=== PATIENT | female | born 1940 | race Caucasian/White ===

== ENCOUNTER 2020-06-17 12:57 | Inpatient (IN) ==
[2020-06-17 13:12] VITALS: BMI 22.1
[2020-06-17 13:42] LABS: ABG BASE EXCESS 2.1 mmol/L (-2.0-2.0); ABG HCO3 23.3 mmol/L (22-26)
[2020-06-17 13:43] LABS: ABG ALLEN TEST POS
--- NOTE | 2020-06-17 13:48 | DR.SOBA ---
HPI Time Seen Time Seen by Provider: 06/17/20 13:33 Primary Care Physician Primary Care Physician: MAURICE WEBB HPI Comment HPI Comment: A 80 y/o female presenting with generalized weakness, SOB, cough and nausea x couple of weeks. Her O2 sat was 81% on R/A at home with EMS crew today. She was diagnosed with COVID-19 about 10 days ago and has failed supportive outpt. therapies. She also has decreased appetite but no fever. Complaints Chief Complaint:: PT. IS COVID POSITIVE WITH C/O INCREASED WEAKNESS, SHORTNESS OF BREATH AND NAUSEA. DECREASED APPETITE DUE TO NAUSEA. PT. HAS FAILED OUT PA TIENT TREATMENT. O2 SAT WAS 81% ON ROOM AIR UPON EMS ARRIVAL. PT. WAS PLACED ON N/C @ 4LPM WHICH INCREASED O2 SAT TO 94%. COVID-19 Coronavirus risk:travel/contact w/high risk person: Yes Has patient experienced Coronavirus symptoms: Yes Coronavirus symptoms experienced: Coughing and Shortness of Breath Reviewed Nurses Notes Reviewed: Yes Source History Provided: Patient and EMS Mode of Arrival Mode of Arrival: EMS Timing Onset of Chief Complaint: 06/10/20 Duration Duration: Weeks Context PE Risk Factors:: None History of:: None Currently on:: Neither Prehospital Care:: O2 Modifying Factors Worsens:: Exertion Improves:: Rest Associated Signs and Symptoms Associated Signs and Symptoms: Cough If Cough Cough: Productive and White PMH PMH Past Medical History: Yes Past Medical History: Hypertension Past Surgical History: Yes Surgical History: Unknown Family History History of Family Medical Conditions: Yes Family Medical History: Coronary Artery Disease and Hypertension Social History Does patient currently use any type of tobacco product: No Have you used tobacco products in the last 12 months: No Type of Tobacco Use: None Does any household member use tobacco: No Alcohol Use: None Do you use any recreational Drugs:: No Lives With: Alone Lives Where: Home Travel Risk Coronavirus risk:travel/contact w/high risk person: Yes Has patient experienced Coronavirus symptoms: Yes Coronavirus symptoms experienced: Shortness of Breath Infectious screening In the last 2 months have you had wt loss of >10#?: NO Have you had fever, night sweats or hemotysis?: No Have you traveled outside the country in the last 6 months?: No Isolation: Droplet ROS Review of Systems Constitutional: Weakness Eyes: No Symptoms Reported ENTM: No Symptoms Reported Respiratoy: Productive Cough and Short of Breath Cardiovascular: No Symptoms Reported Gastrointestinal/Abdominal: Nausea Genitourinary: No Symptoms Reported Neurological: No Symptoms Reported Musculoskeletal: No Symptoms Reported Integumentary: No Symptoms Reported Hematologic/Lymphatic: No Symptoms Reported Endocrine: No Symptoms Reported Psychiatric: No Symptoms Reported PE Vital Signs Vitals: Temperature 99.5 F Pulse Rate 88 Respiratory Rate 28 Blood Pressure [Left Arm] 164/70 Blood Pressure 149/79 O2 Sat by Pulse Oximetry 92 General Limitations: No Limitations General Appearance: Alert and In No Apparent Distress Head Head Exam: Normal Inspection, Atraumatic and Normocephalic Eyes Eye exam: Normal Appearance and EOMI ENT ENT Exam: Normal Exam, Normal Oropharynx, Normal External Ear Exam and Mucous Membranes Moist Neck Neck Exam: Normal Inspection, Full ROM and Trachea Midline Chest Chest Inspection: Normal Inspection and Symmetric Chest Wall Rise Respiratory Respiratory Exam: Normal Lung Sounds Bilat Cardiovascular Cardiovascular Exam: Regular Rate, Normal Rhythm, Normal Heart Sounds, +S1 and +S2 Abdominal Exam Abdominal Exam: Normal Inspection, Normal Bowel Sounds and Soft Extremities Extremities Exam: Other (s/p t. AKA) Back Back Exam: Normal Inspection and Full ROM Neurologic Neurological Exam: Alert and Oriented X3 Psychiatric Psychiatric Exam: Normal Affect and Normal Mood Skin Skin Exam: Dry and Normal Color COURSE Treatment Treatment: I spoke with Dr. Mckeon about pt's. presentation and findings. He agrees to the pt. being admitted to his service. Reevaluation 1st: Unchanged Education/Counseling Education/Counseling: Patient, Education and Counseling Educated On: Treatment, Diagnosis, Prognosis and Needs for Follow Up ROR Labs Reviewed Result Diagrams: 06/17/20 14:00 06/17/20 14:00 Laboratory: WBC 22.9 X10^3/uL (3.6-10.0) H 06/17/20 14:00 RBC 4.57 X10^6/uL (3.5-5.4) 06/17/20 14:00 Hgb 14.0 g/dL (12.0-16.0) 06/17/20 14:00 Hct 41.9 % (36.0-47.0) 06/17/20 14:00 MCV 91.7 fL (80.0-100.0) 06/17/20 14:00 MCH 30.7 pg (27.0-34.0) 06/17/20 14:00 MCHC 33.5 g/dL (33.0-35.0) 06/17/20 14:00 RDW 12.9 % (11.6-16.5) 06/17/20 14:00 Plt Count 188 X10^3/uL (150.0-450.0) 06/17/20 14:00 Plt Count Comment Adequate (ADEQUATE) 06/17/20 14:00 MPV 9.4 fL (7.4-11.0) 06/17/20 14:00 Neut % (Auto) 30.5 % (42.0-75.0) L 06/17/20 14:00 Lymph % (Auto) 67.2 % (21.0-51.0) H 06/17/20 14:00 [place] % (Auto) 2.1 % (0.0-13.0) 06/17/20 14:00 Eos % (Auto) 0.0 % (0.9-2.9) L 06/17/20 14:00 Baso % (Auto) 0.2 % (0.2-1.0) 06/17/20 14:00 Neut # (Auto) 7.0 x10^3/uL (2.2-4.8) H 06/17/20 14:00 Lymph # (Auto) 15.3 X10^3/uL (1.3-2.9) H 06/17/20 14:00 [place] # (Auto) 0.5 x10^3/uL (0.3-0.8) 06/17/20 14:00 Eos # (Auto) 0.0 x10^3/uL (0.0-0.2) 06/17/20 14:00 Baso # (Auto) 0.0 X10^3/uL (0.0-0.1) 06/17/20 14:00 Absolute Nucleated RBC 0.1 /100WBC 06/17/20 14:00 Total Counted 100 06/17/20 14:00 Neutrophils % (Manual) 29 % (39-76) L 06/17/20 14:00 Band Neutrophils % 2 % (0-10) 06/17/20 14:00 Lymphocytes % (Manual) 67 % (13-43) H 06/17/20 14:00 Monocytes % (Manual) 2 % (4-9) L 06/17/20 14:00 Plt Morphology Comment Normal (NORMAL) 06/17/20 14:00 RBC Morphology Normal (NORMAL) 06/17/20 14:00 Sample Site Rr 06/17/20 13:37 ABG pH 7.560 (7.35-7.45) H* 06/17/20 13:37 ABG pCO2 26.0 mmHg (35.0-45.0) L 06/17/20 13:37 ABG pO2 56.0 mmHg (80.0-100.0) L 06/17/20 13:37 ABG HCO3 23.3 mmol/L (22-26) 06/17/20 13:37 ABG O2 Saturation 93.0 % (90-100) 06/17/20 13:37 ABG Base Excess 2.1 mmol/L (-2.0-2.0) H 06/17/20 13:37 Ki Test Pos 06/17/20 13:37 A-a Gradient 61.0 mmHg 06/17/20 13:37 FiO2 21.0 06/17/20 13:37 Blood Gas Comments Emily well. gmb 06/17/20 13:37 Sodium 137 mmol/L (136-145) 06/17/20 14:00 Corrected Sodium TNP 06/17/20 14:00 Potassium 3.1 mmol/L (3.5-5.1) L 06/17/20 14:00 Chloride 98 mmol/L (98-107) 06/17/20 14:00 Carbon Dioxide 26.6 mmol/L (21-32) 06/17/20 14:00 BUN 17 mg/dL (7-18) 06/17/20 14:00 Creatinine 1.18 mg/dL (0.55-1.02) H 06/17/20 14:00 Est GFR (MDRD) Af Amer 57 (>60) L 06/17/20 14:00 Est GFR (MDRD) Non-Af 47 (>60) L 06/17/20 14:00 Glucose 91 mg/dL (65-99) 06/17/20 14:00 Calcium 8.8 mg/dL (8.5-10.1) 06/17/20 14:00 Corrected Calcium 9.4 mg/dL (8.5-10.1) 06/17/20 14:00 Ferritin 623 ng/mL (8-252) H 06/17/20 14:00 Total Bilirubin 0.70 mg/dL (0.2-1.0) 06/17/20 14:00 AST 36 Units/L (15-37) 06/17/20 14:00 ALT 31 Units/L (12-78) 06/17/20 14:00 Alkaline Phosphatase 84 Units/L (46-116) 06/17/20 14:00 C-Reactive Protein 83.30 mg/L (0-3.0) H 06/17/20 14:00 Total Protein 6.7 g/dL (6.4-8.2) 06/17/20 14:00 Albumin 3.2 g/dL (3.4-5.0) L 06/17/20 14:00 Globulin 3.5 g/dL (2.5-4.5) 06/17/20 14:00 Albumin/Globulin Ratio 0.9 Ratio (1.1-2.1) L 06/17/20 14:00 SARS CoV-2 RNA Rapid ANSON Cancelled 06/17/20 14:10 EKG Rate: 108 Trevor: Normal Rhythm: ST and PVCs Block: None Hypertrophy: None ST: Old and Infarct Opioid Opioid Risk Tool Age (Nas box if 16-45): No History of Preadolescent Sexual Abuse: No Total: 0 Total Score Risk Category: Low Risk Copyright: [facility] predicting aberrant behaviors Diagnosis Discharge Problem: Lobar pneumonia, Hypokalemia, Weakness, COVID-19 Leukocytosis Qualifiers: Leukocytosis type: lymphocytosis Qualified Code(s): D72.820 - Lymphocytosis (symptomatic) ADDITIONAL NOTES Additional Notes Additional Notes: Name: NUBIA HERNANDEZ : 1940 Sex: F Location: ER Order Number(s): [id number] Procedure(s):CHEST, 1 VIEW Ordering Physician: YOSEPH ANTONIO Primary Care: Galindo Mckeon M.D. Service Date: 06/17/20 Service Time: 1334 PROCEDURE: Chest x-ray one-view. HISTORY: Short of breath and COVID-19. TECHNIQUE: AP portable technique done at 2:12 p.m.. COMPARISON: 06/14/2020. TECHNICAL QUALITY: Satisfactory . FINDINGS: Heart size upper limits of normal and unchanged. Tortuous aortic arch. Mediastinum and hilar regions show no masses. Normal central vascularity. Increased density left base and right upper lobe near the minor fissure consistent with pneumonia that is appeared since previous chest x-ray. No pleural fluid or pneumothorax. IMPRESSION: Increasing pneumonia bilaterally. Electronically signed by: Ney Hidalgo (Jun 17, 2020 14:35:24)
[2020-06-17] MEDS ORDERED: NS 1000 ML 1,000 ML IV ONE (13:53)
[2020-06-17] MEDS ORDERED: ZOFRAN INJ 4 MG VIAL ONE (14:05)
[2020-06-17] MEDS ORDERED: NS 1000 ML 1,000 ML ONE (14:05)
[2020-06-17] MEDS ORDERED: ZOFRAN INJ 4 MG VIAL IVP ONE (14:12)
[2020-06-17 14:13] LABS: BASOPHILS % (AUTO) 0.2 % (0.2-1.0); HEMATOCRIT 41.9 % (36.0-47.0); LYMPHOCYTES # (AUTO) 15.3 X10^3/uL (1.3-2.9); LYMPHOCYTES % (AUTO) 67.2 % (21.0-51.0); MEAN CORPUSCULAR HEMOGLOBIN 30.7 pg (27.0-34.0); MEAN CORPUSCULAR HGB CONC 33.5 g/dL (33.0-35.0); MEAN CORPUSCULAR VOLUME 91.7 fL (80.0-100.0); MEAN PLATELET VOLUME 9.4 fL (7.4-11.0); MONOCYTES # (AUTO) 0.5 x10^3/uL (0.3-0.8); MONOCYTES % (AUTO) 2.1 % (0.0-13.0); NEUTROPHILS % (AUTO) 30.5 % (42.0-75.0); PLATELET COUNT 188 X10^3/uL (150.0-450.0); RED BLOOD COUNT 4.57 X10^6/uL (3.5-5.4); RED CELL DISTRIBUTION WIDTH 12.9 % (11.6-16.5); WHITE BLOOD COUNT 22.9 X10^3/uL (3.6-10.0)
[2020-06-17 14:25] LABS: ALANINE AMINOTRANSFERASE 31 Units/L (12-78); ALBUMIN 3.2 g/dL (3.4-5.0); ALKALINE PHOSPHATASE 84 Units/L (46-116); ASPARTATE AMINO TRANSFERASE 36 Units/L (15-37); BLOOD UREA NITROGEN 17 mg/dL (7-18); CALCIUM 8.8 mg/dL (8.5-10.1); CARBON DIOXIDE 26.6 mmol/L (21-32); CHLORIDE 98 mmol/L (98-107); COR CA(FOR HYPOALB) 9.4 mg/dL (8.5-10.1); CREATININE 1.18 mg/dL (0.55-1.02); SODIUM 137 mmol/L (136-145); TOTAL PROTEIN 6.7 g/dL (6.4-8.2); eGFR NON BLACK RACES 47 (>60)
--- NOTE | 2020-06-17 14:37 | RAD ---
PROCEDURE: Chest x-ray one-view.HISTORY: Short of breath and COVID-19.TECHNIQUE: AP portable technique done at 2:12 p.m..COMPARISON: 06/14/2020.TECHNICAL QUALITY: Satisfactory .FINDINGS:Heart size upper limits of normal and unchanged.Tortuous aortic arch. Mediastinum and hilar regions show no masses.Normal central vascularity.Increased density left base and right upper lobe near the minor fissure consistent with pneumonia that is appeared since previous chest x-ray. No pleural fluid or pneumothorax.IMPRESSION:Increasing pneumonia bilaterally.Electronically signed by: Ney Hidalgo (Jun 17, 2020 14:35:24)
[2020-06-17 14:38] LABS: BAND NEUTROPHILS % 2 % (0-10)
[2020-06-17 14:39] LABS: PLATELET MORPHOLOGY COMMENT NORMAL (NORMAL)
[2020-06-17] MEDS ORDERED: TORADOL 60 MG VIAL IM ONE (16:00)
[2020-06-17] MEDS ORDERED: CATAPRES TAB 0.2 MG PO ONE (16:00)
[2020-06-17] MEDS ORDERED: ZITHROMAX INJ 500 MG VIAL 500 MG in NS 250 ML IV 250 ML IV SCH (16:17)
[2020-06-17] MEDS ORDERED: ROCEPHIN 1 GRAM IV PREMIX 1 G/50 ML IV.SOLN. IV ONE ×2 (16:17→16:29)
[2020-06-17] MEDS ORDERED: K-DUR TAB 20 MEQ PO ONE ×2 (16:20→17:07)
[2020-06-17] MEDS: ROCEPHIN 1 GRAM IV PREMIX 1 G/50 ML IV.SOLN. IV SCH (17:13)
[2020-06-17] MEDS ORDERED: ROBITUSSIN DM ONE ×2 (17:30→21:54)
[2020-06-17] MEDS: ROBITUSSIN DM PO SCH ×2 (17:45→22:00)
[2020-06-17] MEDS ORDERED: ZITHROMAX INJ 500 MG VIAL IV ONE (17:46)
[2020-06-17] MEDS ORDERED: NS 250 ML IV 250 ML IV ONE (17:47)
[2020-06-17] MEDS ORDERED: NS 1/2 1000 ML IV 1,000 ML IV ONE (17:47)
[2020-06-17] MEDS: NS 1/2 1000 ML IV 1,000 ML IV SCH (17:54)
[2020-06-17] MEDS: XOPENEX 1.25 MG/3 ML NEBULE NEB SCH (22:40)
[2020-06-17] MEDS: PULMICORT NEB TX 0.5 MG NEB SCH (22:40)
[2020-06-18 04:35] LABS: BILIRUBIN,URINE NEGATIVE (NEGATIVE); BLOOD/HEMOGLOBIN,URINE 3+ (NEGATIVE); GLUCOSE, URINE NEGATIVE (NEGATIVE); KETONES,URINE 3+ (NEGATIVE); LEUKOCYTE ESTERASE ,URINE NEGATIVE (NEGATIVE); NITRITES,URINE NEGATIVE (NEGATIVE); PROTEIN,URINE 2+ (NEGATIVE); UROBILINOGEN,URINE NORMAL (NORMAL)
[2020-06-18 04:45] LABS: AMORPHOUS SEDIMENT,UR 2+ /HPF (NEGATIVE); APPEARANCE,URINE SLIGHTLY HAZY (CLEAR); BACTERIA,URINE 1+ /HPF (NEGATIVE); COLOR,URINE YELLOW (YELLOW); RBC,URINE 20-30 /HPF (0-3); SQUAMOUS EPITHELIAL CELL,UR FEW /HPF (NEGATIVE)
[2020-06-18 05:54] LABS: BASOPHILS % (AUTO) 0.1 % (0.2-1.0); EOSINOPHILS % (AUTO) 0.1 % (0.9-2.9); HEMATOCRIT 35.5 % (36.0-47.0); HEMOGLOBIN 11.7 g/dL (12.0-16.0); LYMPHOCYTES # (AUTO) 12.1 X10^3/uL (1.3-2.9); LYMPHOCYTES % (AUTO) 66.1 % (21.0-51.0); MEAN CORPUSCULAR HEMOGLOBIN 30.3 pg (27.0-34.0); MEAN CORPUSCULAR HGB CONC 32.9 g/dL (33.0-35.0); MEAN PLATELET VOLUME 9.6 fL (7.4-11.0); MONOCYTES # (AUTO) 0.4 x10^3/uL (0.3-0.8); MONOCYTES % (AUTO) 2.4 % (0.0-13.0); NEUTROPHILS # (AUTO) 5.7 x10^3/uL (2.2-4.8); NEUTROPHILS % (AUTO) 31.3 % (42.0-75.0); PLATELET COUNT 142 X10^3/uL (150.0-450.0); RED BLOOD COUNT 3.86 X10^6/uL (3.5-5.4); RED CELL DISTRIBUTION WIDTH 12.8 % (11.6-16.5); WHITE BLOOD COUNT 18.3 X10^3/uL (3.6-10.0)
[2020-06-18 06:03] LABS: ALANINE AMINOTRANSFERASE 27 Units/L (12-78); ALBUMIN 2.6 g/dL (3.4-5.0); ALKALINE PHOSPHATASE 69 Units/L (46-116); ASPARTATE AMINO TRANSFERASE 32 Units/L (15-37); BLOOD UREA NITROGEN 14 mg/dL (7-18); CALCIUM 8.1 mg/dL (8.5-10.1); CARBON DIOXIDE 25.8 mmol/L (21-32); CHLORIDE 103 mmol/L (98-107); COR CA(FOR HYPOALB) 9.2 mg/dL (8.5-10.1); CREATININE 0.95 mg/dL (0.55-1.02); SODIUM 138 mmol/L (136-145); TOTAL PROTEIN 5.5 g/dL (6.4-8.2); eGFR NON BLACK RACES > 60 (>60)
[2020-06-18 06:17] LABS: PLATELET MORPHOLOGY COMMENT NORMAL (NORMAL)
[2020-06-18] MEDS: XOPENEX 1.25 MG/3 ML NEBULE NEB SCH ×3 (06:55→20:45)
[2020-06-18 07:06] LABS: ABG BASE EXCESS -0.5 mmol/L (-2.0-2.0); ABG HCO3 22.9 mmol/L (22-26)
[2020-06-18 07:07] LABS: ABG ALLEN TEST POSS
[2020-06-18] MEDS: NS 1/2 1000 ML IV 1,000 ML IV SCH ×3 (08:20→20:20)
[2020-06-18] MEDS: ROBITUSSIN DM PO SCH ×4 (08:20→20:20)
[2020-06-18] MEDS: VSL#3 PO SCH (08:20)
[2020-06-18] MEDS: ZITHROMAX INJ 500 MG VIAL 250 MG in NS 250 ML IV 250 ML IV SCH (08:21)
[2020-06-18] MEDS ORDERED: SOLU-Medrol 125 MG VIAL IVP ONE (08:36)
[2020-06-18] MEDS ORDERED: MAGIC MOUTHWASH MT PRN (10:03)
[2020-06-18] MEDS: PULMICORT NEB TX 0.5 MG NEB SCH ×2 (10:07→20:45)
--- NOTE | 2020-06-18 10:08 | DR.H&P ---
H&P - History & Physical for Day of: H&P Date: 06/17/20 - Chief Complaint Chief Complaint: SOB, WEAKNESS, N/V, CONSITPATION, COVID 19 + PNEUMONIA - History of Present Illness History of Present Illness: PT IS 80 WF ER ADMISSION WITH COVID 19 PNEUMONIA WITH HYPOXIA. PT HAD BEEN ON PO ZITHROMAX, LEVAQUIN, PREDNISONE AND PLAQUENIL, WELL OUTPT IV NS INFUSION WITH ROCEPHIN 1GM IV. PT WAS SEEN IN ER X2 PRIOR TO THIS ADMISSION FOR CO SOB, WEAKNESS AND N/V. PT HAD PO2 IN 50'S ON ADMISSION WITH CONFIRMED BILATERAL PNEUMONIA. PT HAS PMH OF MVP, COPD, AND CLL. PT ADMITTED FOR ISOLATION FOR COVID PNEUMONIA TREATMENT. - Past Medical History Past Medical History: COPD, Hypertension Additional Medical History: CLL - Past Surgical History Surgical History: Unknown - Family History Family Medical History: Coronary Artery Disease, Hypertension - Social History Does patient currently use any type of tobacco product: No Have you used tobacco products in the last 12 months: No Type of Tobacco Use: None Does any household member use tobacco: No Alcohol Use: None Drug Use: None - Medications Home Medications: No Known Drug Allergies Allergy (Verified 06/15/20 11:35) - Review of Systems Constitutional: Weakness Eyes: No Symptoms Reported ENT: No Symptoms Reported Respiratory: Cough, Shortness of Breath, SOB with Excertion, Pleuritic Pain, Wheezing Cardiovascular: No Symptoms Reported, Chest Pain, Palpitations, Light Headedness Gastrointestinal: Nausea, Vomiting, Constipation Musculoskeletal: Back Pain Skin: No Symptoms Reported Neurological: Weakness - Physical Exam Vital Signs: Temperature 98.9 F Pulse Rate [Right] 86 Pulse Rate 79 Respiratory Rate 32 Blood Pressure [Left Arm] 168/75 Blood Pressure 134/90 O2 Sat by Pulse Oximetry 94 Oriented: Normal Eyes: Normal Ear: Normal Nose: Normal Throat: Normal Respiratory: Diminished Throughout Cardiovascular: Tachycardia, Edema : Normal Auscultation: Bowel Sounds: Normal Palpation: Normal Tenderness: Normal Skin: Decreased Turgur Musculoskeletal: Back:Lumbar Psychiatric: Anxiety Affect: Anxious Speech Pattern: Clear, Appropriate - Assessment/Plan (1) Pneumonia Status: Acute Plan: DUE TO COVID 19 PNEUMONIA WITH HYPOXIA. IV ZITHROMAX, IV REMDESIVIR, SOLU MEDROL. ROCEPHIN, IV HYDRATION, STRICT I&OS. ABG ON ADMISSION THE AM, CXR ON ADMISSION AND AM. SUPPLEMENTAL O2, PT, RT (2) Viral gastroenteritis Status: Acute (3) Respiratory distress Status: Acute (4) Weakness Status: Acute (5) Hypokalemia Status: Acute (6) COVID-19 Status: Acute - Allergies Allergies/Adverse Reactions: Allergies Allergy/AdvReac Type Severity Reaction Status Date / Time No Known Drug Allergies Allergy Verified 06/15/20 11:35
[2020-06-18 10:39] LABS: CKMB % 1.3 % (<4); CREATINE KINASE 75 Units/L (26-192); CREATINE KINASE MB < 1.0 ng/mL (0-4.0); TROPONIN I 0.02 ng/mL (0-1.5)
[2020-06-18] MEDS ORDERED: REMDESIVIR 200 MG in NS 250 ML IV 250 ML IV NR (11:00)
[2020-06-18] MEDS: ROCEPHIN 1 GRAM IV PREMIX 1 G/50 ML IV.SOLN. IV SCH (11:12)
[2020-06-18] MEDS: PROTONIX INJ 40 MG VIAL IVP SCH ×2 (11:12→20:20)
[2020-06-18] MEDS ORDERED: XOPENEX 1.25 MG/3 ML NEBULE NEB ONE (14:32)
[2020-06-18] MEDS ORDERED: MICRO K EXTEN CAP 10 MEQ PO PRN (14:57)
[2020-06-18] MEDS ORDERED: POTASSIUM CHLORIDE LIQ 20 MEQ UDC PO PRN (14:57)
[2020-06-18] MEDS ORDERED: POTASSIUM CHL 40 MEQ/NS 0.45% 500 ML IV PRN (14:57)
[2020-06-18] MEDS ORDERED: KLOR-CON PO PRN (14:57)
[2020-06-18] MEDS ORDERED: POTASSIUM CHL 60 MEQ/NS 0.45% 500 ML IV PRN (14:57)
[2020-06-18] MEDS ORDERED: NS 1/2 1000 ML IV 1,000 ML IV ONE (15:19)
[2020-06-18] MEDS: LOVENOX INJ 40 MG SYR SC SCH (15:26)
[2020-06-18] MEDS: K-DUR TAB 20 MEQ PO PRN ×2 (15:27→20:21)
[2020-06-19] MEDS: XOPENEX 1.25 MG/3 ML NEBULE NEB SCH ×4 (04:59→21:45)
[2020-06-19 06:20] LABS: BASOPHILS % (AUTO) 0 % (0.2-1.0); HEMATOCRIT 38.1 % (36.0-47.0); HEMOGLOBIN 12.5 g/dL (12.0-16.0); LYMPHOCYTES # (AUTO) 17.9 X10^3/uL (1.3-2.9); LYMPHOCYTES % (AUTO) 79.5 % (21.0-51.0); MEAN CORPUSCULAR HEMOGLOBIN 30.7 pg (27.0-34.0); MEAN CORPUSCULAR HGB CONC 32.8 g/dL (33.0-35.0); MEAN CORPUSCULAR VOLUME 93.5 fL (80.0-100.0); MEAN PLATELET VOLUME 9.9 fL (7.4-11.0); MONOCYTES # (AUTO) 0.4 x10^3/uL (0.3-0.8); MONOCYTES % (AUTO) 1.8 % (0.0-13.0); NEUTROPHILS # (AUTO) 4.2 x10^3/uL (2.2-4.8); NEUTROPHILS % (AUTO) 18.7 % (42.0-75.0); PLATELET COUNT 144 X10^3/uL (150.0-450.0); RED BLOOD COUNT 4.07 X10^6/uL (3.5-5.4); RED CELL DISTRIBUTION WIDTH 12.9 % (11.6-16.5); WHITE BLOOD COUNT 22.5 X10^3/uL (3.6-10.0)
[2020-06-19 06:28] LABS: ALANINE AMINOTRANSFERASE 30 Units/L (12-78); ALBUMIN 2.6 g/dL (3.4-5.0); ALKALINE PHOSPHATASE 76 Units/L (46-116); ASPARTATE AMINO TRANSFERASE 33 Units/L (15-37); BLOOD UREA NITROGEN 22 mg/dL (7-18); CALCIUM 8.6 mg/dL (8.5-10.1); CARBON DIOXIDE 22.2 mmol/L (21-32); CHLORIDE 106 mmol/L (98-107); COR CA(FOR HYPOALB) 9.7 mg/dL (8.5-10.1); COR NA(FOR HYPERGLY) 142 mmol/L (136-145); CREATININE 1.08 mg/dL (0.55-1.02); SODIUM 141 mmol/L (136-145); TOTAL PROTEIN 6.1 g/dL (6.4-8.2); eGFR NON BLACK RACES 52 (>60)
--- NOTE | 2020-06-19 07:10 | RAD ---
HISTORYCOVID+; F/USTUDYCHEST, 1 [id number]/23/2020FINDINGSStable cardiomediastinal silhouette. Multifocal bilateral pulmonary opacities are slightly worse than prior. No sizable effusion or visible pneumothorax. No acute osseous finding.IMPRESSIONSlight worsening of bilateral pulmonary opacities.Electronically signed by: Veto Colon (Jun 19, 2020 07:09:24)
[2020-06-19 07:15] LABS: BAND NEUTROPHILS % 2 % (0-10)
[2020-06-19 07:16] LABS: PLATELET MORPHOLOGY COMMENT NORMAL (NORMAL)
[2020-06-19] MEDS: LOVENOX INJ 40 MG SYR SC SCH (09:31)
[2020-06-19] MEDS: ROBITUSSIN DM PO SCH ×4 (09:32→21:00)
[2020-06-19] MEDS: VSL#3 PO SCH (09:33)
[2020-06-19] MEDS: ROCEPHIN 1 GRAM IV PREMIX 1 G/50 ML IV.SOLN. IV SCH (09:33)
[2020-06-19] MEDS: PULMICORT NEB TX 0.5 MG NEB SCH ×2 (09:33→21:45)
[2020-06-19] MEDS ORDERED: NS 250 ML IV 250 ML IV ONE (09:40)
[2020-06-19] MEDS ORDERED: ZITHROMAX INJ 500 MG VIAL IV ONE (09:40)
[2020-06-19] MEDS: PROTONIX INJ 40 MG VIAL IVP SCH ×2 (09:45→21:00)
[2020-06-19] MEDS: ZITHROMAX INJ 500 MG VIAL 250 MG in NS 250 ML IV 250 ML IV SCH (10:36)
--- NOTE | 2020-06-19 11:50 | PCM.PROG ---
Progress Note Progress Note for Day of Date of Exam: 06/19/20 Subjective Subjective: PT IS 80 YEAR OLD FEMALE ADMITTED FOR COVID 19 PNEUMONIA WITH HYPOXIA. THIS MORNING PATIENT REPORTS SOME IMPROVEMENT IN SYMPTOMS AND BREATHING. NO ACUTE EVENTS OVERNIGHT. LABS/IMAGING: WBC 22.5, HGB 12.5, PLT 144, NA 141, K 4, CR 1.08, GLUCOSE 162, CRP 83>116, CXR: Slight worsening of bilate ral pulmonary opacities. HER TREATMENT COURSE INCLUDES: REMDESIVIR, ANTIBIOTICS: ZITHROMAX AND ROCEPHIN, BRONCHODILATORS, RESPIRATORY SUPPORT, I/S, PNEUMONIA PROTOCOL. SHE IS CURRENTLY REQUIRING SUPPLEMENTAL O2 OF 3L NASAL CANNULA, ATTEMPT TO WEAN TOLERATED. WILL ADD ON SOLUMEDROL. CONTINUE PLAN OF CARE AND CLOSELY MONITOR AND FOLLOW UP LABS/IMAGING IN THE MORNING. Past Medical Family Social History Past Med/Fam/Surg Hx: No changes since H&P Allergies: Allergies No Known Drug Allergies Allergy (Verified 06/15/20 11:35) Review of Systems ROS: No change since H&P Vital Signs and I&O's Vital Signs: Temperature 98.3 F Pulse Rate [Right] 85 Pulse Rate 99 Respiratory Rate 26 Blood Pressure [Left Arm] 179/87 Blood Pressure 134/90 O2 Sat by Pulse Oximetry 94 Intake and Output: Intake & Output 06/16/20 06/17/20 06/18/20 06/19/20 23:59 23:59 23:59 23:59 Intake Total 3008 / 3008 443 / 443 Balance 3008 / 3008 443 / 443 Physical Exam Oriented: Normal Eyes: Normal Ear: Normal Nose: Normal Throat: Normal Respiratory: Diminished Cardiovascular: Tachycardia and Edema : Normal Auscultation: Bowel Sounds: Normal Tenderness: Normal Skin: Decreased Turgur Musculoskeletal: Back:Lumbar Psychiatric: Anxiety Affect: Anxious Speech Pattern: Clear and Appropriate Laboratory and Diagnostics Result Diagrams: 06/19/20 05:01 06/19/20 05:01 Labs: 06/17/20 18:25 Sputum - Expectorated Sputum Sputum Culture - Final 06/17/20 18:25 Sputum - Expectorated Sputum - Final 06/17/20 17:08 Blood Blood Culture - Preliminary 06/17/20 16:33 Blood Blood Culture - Preliminary Laboratory WBC 22.5 X10^3/uL (3.6-10.0) H 06/19/20 05:01 RBC 4.07 X10^6/uL (3.5-5.4) 06/19/20 05:01 Hgb 12.5 g/dL (12.0-16.0) 06/19/20 05:01 Hct 38.1 % (36.0-47.0) 06/19/20 05:01 MCV 93.5 fL (80.0-100.0) 06/19/20 05:01 MCH 30.7 pg (27.0-34.0) 06/19/20 05:01 MCHC 32.8 g/dL (33.0-35.0) L 06/19/20 05:01 RDW 12.9 % (11.6-16.5) 06/19/20 05:01 Plt Count 144 X10^3/uL (150.0-450.0) L 06/19/20 05:01 Plt Count Comment Decreased (ADEQUATE) A 06/19/20 05:01 MPV 9.9 fL (7.4-11.0) 06/19/20 05:01 Neut % (Auto) 18.7 % (42.0-75.0) L 06/19/20 05:01 Lymph % (Auto) 79.5 % (21.0-51.0) H 06/19/20 05:01 [place] % (Auto) 1.8 % (0.0-13.0) 06/19/20 05:01 Eos % (Auto) 0.0 % (0.9-2.9) L 06/19/20 05:01 Baso % (Auto) 0 % (0.2-1.0) L 06/19/20 05:01 Neut # (Auto) 4.2 x10^3/uL (2.2-4.8) 06/19/20 05:01 Lymph # (Auto) 17.9 X10^3/uL (1.3-2.9) H 06/19/20 05:01 [place] # (Auto) 0.4 x10^3/uL (0.3-0.8) 06/19/20 05:01 Eos # (Auto) 0.0 x10^3/uL (0.0-0.2) 06/19/20 05:01 Baso # (Auto) 0.0 X10^3/uL (0.0-0.1) 06/19/20 05:01 Absolute Nucleated RBC 0.1 /100WBC 06/19/20 05:01 Total Counted 100 06/19/20 05:01 Neutrophils % (Manual) 26 % (39-76) L 06/19/20 05:01 Band Neutrophils % 2 % (0-10) 06/19/20 05:01 Lymphocytes % (Manual) 70 % (13-43) H 06/19/20 05:01 Monocytes % (Manual) 2 % (4-9) L 06/19/20 05:01 Plt Morphology Comment Normal (NORMAL) 06/19/20 05:01 RBC Morphology Normal (NORMAL) 06/19/20 05:01 D-Dimer 1.71 ug/ml (0.0-0.57) H* 06/18/20 05:46 Sample Site R rad 06/18/20 07:00 ABG pH 7.450 (7.35-7.45) 06/18/20 07:00 ABG pCO2 33.0 mmHg (35.0-45.0) L 06/18/20 07:00 ABG pO2 55.0 mmHg (80.0-100.0) L 06/18/20 07:00 ABG HCO3 22.9 mmol/L (22-26) 06/18/20 07:00 ABG O2 Saturation 90.0 % (90-100) 06/18/20 07:00 ABG Base Excess -0.5 mmol/L (-2.0-2.0) 06/18/20 07:00 Ki Test Poss 06/18/20 07:00 A-a Gradient 103.0 mmHg 06/18/20 07:00 FiO2 28.0 06/18/20 07:00 Blood Gas Comments Emily well 06/18/20 07:00 Sodium 141 mmol/L (136-145) 06/19/20 05:01 Corrected Sodium 142 mmol/L (136-145) 06/19/20 05:01 Potassium 4.0 mmol/L (3.5-5.1) 06/19/20 05:01 Chloride 106 mmol/L (98-107) 06/19/20 05:01 Carbon Dioxide 22.2 mmol/L (21-32) 06/19/20 05:01 BUN 22 mg/dL (7-18) H 06/19/20 05:01 Creatinine 1.08 mg/dL (0.55-1.02) H 06/19/20 05:01 Est GFR (MDRD) Af Amer > 60 (>60) 06/19/20 05:01 Est GFR (MDRD) Non-Af 52 (>60) L 06/19/20 05:01 Glucose 162 mg/dL (65-99) H 06/19/20 05:01 Calcium 8.6 mg/dL (8.5-10.1) 06/19/20 05:01 Corrected Calcium 9.7 mg/dL (8.5-10.1) 06/19/20 05:01 Magnesium 2.1 mg/dL (1.7-2.9) 06/18/20 15:20 Ferritin 623 ng/mL (8-252) H 06/17/20 14:00 Total Bilirubin 0.40 mg/dL (0.2-1.0) 06/19/20 05:01 AST 33 Units/L (15-37) 06/19/20 05:01 ALT 30 Units/L (12-78) 06/19/20 05:01 Alkaline Phosphatase 76 Units/L (46-116) 06/19/20 05:01 Creatine Kinase 75 Units/L (26-192) 06/18/20 05:46 CK-MB (CK-2) < 1.0 ng/mL (0-4.0) 06/18/20 05:46 CK/CKMB % Calc 1.3 % (<4) 06/18/20 05:46 Troponin I 0.02 ng/mL (0-1.5) 06/18/20 05:46 C-Reactive Protein 116.00 mg/L (0-3.0) H 06/18/20 05:46 Total Protein 6.1 g/dL (6.4-8.2) L 06/19/20 05:01 Albumin 2.6 g/dL (3.4-5.0) L 06/19/20 05:01 Globulin 3.5 g/dL (2.5-4.5) 06/19/20 05:01 Albumin/Globulin Ratio 0.7 Ratio (1.1-2.1) L 06/19/20 05:01 Specimen Type Random urine 06/18/20 04:24 Urine Color Yellow (YELLOW) 06/18/20 04:24 Urine Appearance Slightly hazy (CLEAR) 06/18/20 04:24 Urine pH 6.0 (5.0 - 8.0) 06/18/20 04:24 Ur Specific [place] 1.025 (1.000-1.030) 06/18/20 04:24 Urine Protein 2+ (NEGATIVE) 06/18/20 04:24 Urine Glucose (UA) Negative (NEGATIVE) 06/18/20 04:24 Urine Ketones 3+ (NEGATIVE) 06/18/20 04:24 Urine Occult Blood 3+ (NEGATIVE) 06/18/20 04:24 Urine Nitrite Negative (NEGATIVE) 06/18/20 04:24 Urine Bilirubin Negative (NEGATIVE) 06/18/20 04:24 Urine Urobilinogen Normal (NORMAL) 06/18/20 04:24 Ur Leukocyte Esterase Negative (NEGATIVE) 06/18/20 04:24 Urine RBC 20-30 /HPF (0-3) A 06/18/20 04:24 Urine WBC None seen /HPF (0-5) 06/18/20 04:24 Ur Squamous Epith Cells Few /HPF (NEGATIVE) 06/18/20 04:24 Amorphous Sediment 2+ /HPF (NEGATIVE) 06/18/20 04:24 Urine Bacteria 1+ /HPF (NEGATIVE) 06/18/20 04:24 Ur Culture Indicated? No/not indicated 06/18/20 04:24 SARS CoV-2 RNA Rapid ANSON Cancelled 06/17/20 14:10 Plan (1) Pneumonia: Status: Acute Plan: DUE TO COVID 19 PNEUMONIA WITH HYPOXIA IV ZITHROMAX, IV REMDESIVIR, SOLU MEDROL ROCEPHIN, IV HYDRATION, STRICT I&OS SUPPLEMENTAL O2, PT, RT (2) Viral gastroenteritis: Status: Acute (3) Respiratory distress: Status: Acute (4) Weakness: Status: Acute (5) Hypokalemia: Status: Acute (6) COVID-19: Status: Acute
[2020-06-19] MEDS: REMDESIVIR 100 MG in NS 250 ML IV 250 ML IV SCH (12:30)
[2020-06-19] MEDS: NS 1/2 1000 ML IV 1,000 ML IV SCH (12:50)
[2020-06-19] MEDS: SOLU-Medrol 125 MG VIAL IVP SCH ×2 (14:05→21:00)
[2020-06-20] MEDS: NS 1/2 1000 ML IV 1,000 ML IV SCH ×2 (01:57→18:59)
[2020-06-20 05:33] LABS: BASOPHILS % (AUTO) 0.1 % (0.2-1.0); HEMATOCRIT 36.9 % (36.0-47.0); HEMOGLOBIN 12.2 g/dL (12.0-16.0); LYMPHOCYTES # (AUTO) 23.4 X10^3/uL (1.3-2.9); LYMPHOCYTES % (AUTO) 76.7 % (21.0-51.0); MEAN CORPUSCULAR HEMOGLOBIN 30.3 pg (27.0-34.0); MEAN CORPUSCULAR VOLUME 91.8 fL (80.0-100.0); MEAN PLATELET VOLUME 9.2 fL (7.4-11.0); MONOCYTES # (AUTO) 0.4 x10^3/uL (0.3-0.8); MONOCYTES % (AUTO) 1.3 % (0.0-13.0); NEUTROPHILS # (AUTO) 6.7 x10^3/uL (2.2-4.8); NEUTROPHILS % (AUTO) 21.9 % (42.0-75.0); PLATELET COUNT 170 X10^3/uL (150.0-450.0); RED BLOOD COUNT 4.02 X10^6/uL (3.5-5.4); RED CELL DISTRIBUTION WIDTH 12.8 % (11.6-16.5)
[2020-06-20 05:55] LABS: WHITE BLOOD COUNT 30.5 X10^3/uL (3.6-10.0)
[2020-06-20 05:58] LABS: ALANINE AMINOTRANSFERASE 29 Units/L (12-78); ALBUMIN 2.4 g/dL (3.4-5.0); ALKALINE PHOSPHATASE 68 Units/L (46-116); ASPARTATE AMINO TRANSFERASE 29 Units/L (15-37); BLOOD UREA NITROGEN 23 mg/dL (7-18); CALCIUM 8.6 mg/dL (8.5-10.1); CARBON DIOXIDE 23.6 mmol/L (21-32); CHLORIDE 106 mmol/L (98-107); COR CA(FOR HYPOALB) 9.9 mg/dL (8.5-10.1); COR NA(FOR HYPERGLY) 141 mmol/L (136-145); CREATININE 0.87 mg/dL (0.55-1.02); SODIUM 140 mmol/L (136-145); TOTAL PROTEIN 5.5 g/dL (6.4-8.2); eGFR NON BLACK RACES > 60 (>60)
[2020-06-20] MEDS: XOPENEX 1.25 MG/3 ML NEBULE NEB SCH ×3 (06:00→20:40)
[2020-06-20 06:40] LABS: PLATELET MORPHOLOGY COMMENT NORMAL (NORMAL)
--- NOTE | 2020-06-20 08:07 | RAD ---
HISTORYcovidSTUDYAP [id number]/2020FINDINGSConsidering technical differences there is no significant change in appearance of heart or lungs. Borderline cardiomegaly with dilated aorta. Similar appearance of bilat eral infiltrates, greatest in the left lower lobe. No pneumothorax or developing pleural fluid seen.I MPRESSIONStable appearance of bilateral infiltrates/pneumonia. No new abnormality identified.Electron ically signed by: RONALD ESTRELLA (Jun 20, 2020 08:05:50)
[2020-06-20] MEDS ORDERED: NS 1/2 1000 ML IV 1,000 ML IV ONE (09:28)
[2020-06-20] MEDS: PULMICORT NEB TX 0.5 MG NEB SCH ×2 (09:30→20:40)
[2020-06-20] MEDS: LOVENOX INJ 40 MG SYR SC SCH (09:43)
[2020-06-20] MEDS: PROTONIX INJ 40 MG VIAL IVP SCH ×2 (09:43→21:30)
[2020-06-20] MEDS: ROCEPHIN 1 GRAM IV PREMIX 1 G/50 ML IV.SOLN. IV SCH (09:44)
[2020-06-20] MEDS: VSL#3 PO SCH (09:44)
[2020-06-20] MEDS: ROBITUSSIN DM PO SCH ×4 (12:11→21:00)
[2020-06-20] MEDS: SOLU-Medrol 125 MG VIAL IVP SCH (12:21)
[2020-06-20] MEDS: ZITHROMAX INJ 500 MG VIAL 250 MG in NS 250 ML IV 250 ML IV SCH (12:21)
[2020-06-20] MEDS: REMDESIVIR 100 MG in NS 250 ML IV 250 ML IV SCH (13:42)
[2020-06-20] MEDS: ZESTRIL TAB 10 MG PO SCH (13:42)
[2020-06-20] MEDS: CATAPRES TAB 0.1 MG PO SCH ×3 (13:43→21:30)
--- NOTE | 2020-06-20 13:44 | PCM.PROG ---
Progress Note Progress Note for Day of Date of Exam: 06/20/20 Subjective Subjective: PT IS 80 YEAR OLD FEMALE ADMITTED FOR COVID 19 PNEUMONIA WITH HYPOXIA. THIS MORNING SHE REPORTS NO SIGNIFICANT CHANGE FROM YESTERDAY. LABS/IMAGING: WBC 22.5>30.5, HGB 12.2, PLT 170, NA 140, K 4, CR 0.87, GLUCOSE 142, CRP 83>82, CXR: Stable appearance of bilateral infiltrates/pneumonia. No ne w abnormality identified. HER TREATMENT COURSE INCLUDES: REMDESIVIR, ANTIBIOTICS: ZITHROMAX AND ROCEPHIN, BRONCHODILATORS, RESPIRATORY SUPPORT, I/S, PNEUMONIA PROTOCOL. SHE IS STILL ON SUPPLEMENTAL O2 OF 3L NASAL CANNULA, WILL ATTEMPT TO WEAN TOLERATED. 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 WILL CLOSELY MONITOR AND FOLLOW UP LABS/IMAGING IN THE MORNING. Past Medical Family Social History Past Med/Fam/Surg Hx: No changes since H&P Allergies: Allergies No Known Drug Allergies Allergy (Verified 06/15/20 11:35) Review of Systems ROS: No change since H&P Vital Signs and I&O's Vital Signs: Temperature 99.1 F Pulse Rate [Right] 99 Pulse Rate 100 Respiratory Rate 20 Blood Pressure [Left Arm] 135/83 Blood Pressure 134/90 O2 Sat by Pulse Oximetry 91 Intake and Output: Intake & Output 06/17/20 06/18/20 06/19/20 06/20/20 23:59 23:59 23:59 23:59 Intake Total 3008 / 3008 2666 / 2666 750 / 750 Balance 3008 / 3008 2666 / 2666 750 / 750 Physical Exam Oriented: Normal Eyes: Normal Ear: Normal Nose: Normal Throat: Normal Respiratory: Diminished Cardiovascular: Normal and Edema : Normal Auscultation: Bowel Sounds: Normal Tenderness: Normal Skin: Decreased Turgur Musculoskeletal: Back:Lumbar Psychiatric: Anxiety Affect: Anxious Speech Pattern: Clear and Appropriate Laboratory and Diagnostics Result Diagrams: 06/20/20 05:15 06/20/20 05:15 Labs: 06/17/20 18:25 Sputum - Expectorated Sputum Sputum Culture - Final 06/17/20 18:25 Sputum - Expectorated Sputum - Final 06/17/20 17:08 Blood Blood Culture - Preliminary 06/17/20 16:33 Blood Blood Culture - Preliminary Laboratory WBC 30.5 X10^3/uL (3.6-10.0) H* D 06/20/20 05:15 RBC 4.02 X10^6/uL (3.5-5.4) 06/20/20 05:15 Hgb 12.2 g/dL (12.0-16.0) 06/20/20 05:15 Hct 36.9 % (36.0-47.0) 06/20/20 05:15 MCV 91.8 fL (80.0-100.0) 06/20/20 05:15 MCH 30.3 pg (27.0-34.0) 06/20/20 05:15 MCHC 33.0 g/dL (33.0-35.0) 06/20/20 05:15 RDW 12.8 % (11.6-16.5) 06/20/20 05:15 Plt Count 170 X10^3/uL (150.0-450.0) 06/20/20 05:15 Plt Count Comment Adequate (ADEQUATE) 06/20/20 05:15 MPV 9.2 fL (7.4-11.0) 06/20/20 05:15 Neut % (Auto) 21.9 % (42.0-75.0) L 06/20/20 05:15 Lymph % (Auto) 76.7 % (21.0-51.0) H 06/20/20 05:15 [place] % (Auto) 1.3 % (0.0-13.0) 06/20/20 05:15 Eos % (Auto) 0.0 % (0.9-2.9) L 06/20/20 05:15 Baso % (Auto) 0.1 % (0.2-1.0) L 06/20/20 05:15 Neut # (Auto) 6.7 x10^3/uL (2.2-4.8) H 06/20/20 05:15 Lymph # (Auto) 23.4 X10^3/uL (1.3-2.9) H 06/20/20 05:15 [place] # (Auto) 0.4 x10^3/uL (0.3-0.8) 06/20/20 05:15 Eos # (Auto) 0.0 x10^3/uL (0.0-0.2) 06/20/20 05:15 Baso # (Auto) 0.0 X10^3/uL (0.0-0.1) 06/20/20 05:15 Absolute Nucleated RBC 0.0 /100WBC 06/20/20 05:15 Total Counted 100 06/20/20 05:15 Neutrophils % (Manual) 25 % (39-76) L 06/20/20 05:15 Band Neutrophils % 2 % (0-10) 06/19/20 05:01 Lymphocytes % (Manual) 75 % (13-43) H 06/20/20 05:15 Monocytes % (Manual) 2 % (4-9) L 06/19/20 05:01 Plt Morphology Comment Normal (NORMAL) 06/20/20 05:15 RBC Morphology Normal (NORMAL) 06/20/20 05:15 D-Dimer 1.71 ug/ml (0.0-0.57) H* 06/18/20 05:46 Sample Site R rad 06/18/20 07:00 ABG pH 7.450 (7.35-7.45) 06/18/20 07:00 ABG pCO2 33.0 mmHg (35.0-45.0) L 06/18/20 07:00 ABG pO2 55.0 mmHg (80.0-100.0) L 06/18/20 07:00 ABG HCO3 22.9 mmol/L (22-26) 06/18/20 07:00 ABG O2 Saturation 90.0 % (90-100) 06/18/20 07:00 ABG Base Excess -0.5 mmol/L (-2.0-2.0) 06/18/20 07:00 Ki Test Poss 06/18/20 07:00 A-a Gradient 103.0 mmHg 06/18/20 07:00 FiO2 28.0 06/18/20 07:00 Blood Gas Comments Emily well 06/18/20 07:00 Sodium 140 mmol/L (136-145) 06/20/20 05:15 Corrected Sodium 141 mmol/L (136-145) 06/20/20 05:15 Potassium 4.0 mmol/L (3.5-5.1) 06/20/20 05:15 Chloride 106 mmol/L (98-107) 06/20/20 05:15 Carbon Dioxide 23.6 mmol/L (21-32) 06/20/20 05:15 BUN 23 mg/dL (7-18) H 06/20/20 05:15 Creatinine 0.87 mg/dL (0.55-1.02) 06/20/20 05:15 Est GFR (MDRD) Af Amer > 60 (>60) 06/20/20 05:15 Est GFR (MDRD) Non-Af > 60 (>60) 06/20/20 05:15 Glucose 142 mg/dL (65-99) H 06/20/20 05:15 Calcium 8.6 mg/dL (8.5-10.1) 06/20/20 05:15 Corrected Calcium 9.9 mg/dL (8.5-10.1) 06/20/20 05:15 Magnesium 2.1 mg/dL (1.7-2.9) 06/18/20 15:20 Ferritin 623 ng/mL (8-252) H 06/17/20 14:00 Total Bilirubin 0.40 mg/dL (0.2-1.0) 06/20/20 05:15 AST 29 Units/L (15-37) 06/20/20 05:15 ALT 29 Units/L (12-78) 06/20/20 05:15 Alkaline Phosphatase 68 Units/L (46-116) 06/20/20 05:15 Creatine Kinase 75 Units/L (26-192) 06/18/20 05:46 CK-MB (CK-2) < 1.0 ng/mL (0-4.0) 06/18/20 05:46 CK/CKMB % Calc 1.3 % (<4) 06/18/20 05:46 Troponin I 0.02 ng/mL (0-1.5) 06/18/20 05:46 C-Reactive Protein 82.70 mg/L (0-3.0) H 06/20/20 05:15 Total Protein 5.5 g/dL (6.4-8.2) L 06/20/20 05:15 Albumin 2.4 g/dL (3.4-5.0) L 06/20/20 05:15 Globulin 3.1 g/dL (2.5-4.5) 06/20/20 05:15 Albumin/Globulin Ratio 0.8 Ratio (1.1-2.1) L 06/20/20 05:15 Specimen Type Random urine 06/18/20 04:24 Urine Color Yellow (YELLOW) 06/18/20 04:24 Urine Appearance Slightly hazy (CLEAR) 06/18/20 04:24 Urine pH 6.0 (5.0 - 8.0) 06/18/20 04:24 Ur Specific [place] 1.025 (1.000-1.030) 06/18/20 04:24 Urine Protein 2+ (NEGATIVE) 06/18/20 04:24 Urine Glucose (UA) Negative (NEGATIVE) 06/18/20 04:24 Urine Ketones 3+ (NEGATIVE) 06/18/20 04:24 Urine Occult Blood 3+ (NEGATIVE) 06/18/20 04:24 Urine Nitrite Negative (NEGATIVE) 06/18/20 04:24 Urine Bilirubin Negative (NEGATIVE) 06/18/20 04:24 Urine Urobilinogen Normal (NORMAL) 06/18/20 04:24 Ur Leukocyte Esterase Negative (NEGATIVE) 06/18/20 04:24 Urine RBC 20-30 /HPF (0-3) A 06/18/20 04:24 Urine WBC None seen /HPF (0-5) 06/18/20 04:24 Ur Squamous Epith Cells Few /HPF (NEGATIVE) 06/18/20 04:24 Amorphous Sediment 2+ /HPF (NEGATIVE) 06/18/20 04:24 Urine Bacteria 1+ /HPF (NEGATIVE) 06/18/20 04:24 Ur Culture Indicated? No/not indicated 06/18/20 04:24 SARS CoV-2 RNA Rapid ANSON Cancelled 06/17/20 14:10 Plan (1) Pneumonia: Status: Acute Plan: DUE TO COVID 19 PNEUMONIA WITH HYPOXIA IV ZITHROMAX, IV REMDESIVIR, SOLU MEDROL ROCEPHIN, IV HYDRATION, STRICT I&OS SUPPLEMENTAL O2, PT, RT (2) Viral gastroenteritis: Status: Acute (3) Respiratory distress: Status: Acute (4) Weakness: Status: Acute (5) Hypokalemia: Status: Acute (6) COVID-19: Status: Acute
[2020-06-20] MEDS: CALAN (PLAIN) 120 MG PO SCH ×2 (13:46→21:14)
[2020-06-21 05:37] LABS: BASOPHILS % (AUTO) 0 % (0.2-1.0); HEMOGLOBIN 10.8 g/dL (12.0-16.0); MEAN CORPUSCULAR VOLUME 92.7 fL (80.0-100.0); MONOCYTES # (AUTO) 0.7 x10^3/uL (0.3-0.8)
[2020-06-21 05:41] LABS: HEMATOCRIT 33.3 % (36.0-47.0); LYMPHOCYTES # (AUTO) 23.8 X10^3/uL (1.3-2.9); LYMPHOCYTES % (AUTO) 70.5 % (21.0-51.0); MEAN CORPUSCULAR HEMOGLOBIN 30.1 pg (27.0-34.0); MEAN CORPUSCULAR HGB CONC 32.5 g/dL (33.0-35.0); MEAN PLATELET VOLUME 9.5 fL (7.4-11.0); MONOCYTES % (AUTO) 2.2 % (0.0-13.0); NEUTROPHILS # (AUTO) 9.2 x10^3/uL (2.2-4.8); NEUTROPHILS % (AUTO) 27.3 % (42.0-75.0); PLATELET COUNT 175 X10^3/uL (150.0-450.0); RED BLOOD COUNT 3.59 X10^6/uL (3.5-5.4)
[2020-06-21 05:44] LABS: ALANINE AMINOTRANSFERASE 21 Units/L (12-78); ALBUMIN 2.3 g/dL (3.4-5.0); ALKALINE PHOSPHATASE 58 Units/L (46-116); ASPARTATE AMINO TRANSFERASE 21 Units/L (15-37); BLOOD UREA NITROGEN 28 mg/dL (7-18); CALCIUM 8.3 mg/dL (8.5-10.1); CARBON DIOXIDE 23.1 mmol/L (21-32); CHLORIDE 107 mmol/L (98-107); COR CA(FOR HYPOALB) 9.7 mg/dL (8.5-10.1); COR NA(FOR HYPERGLY) 143 mmol/L (136-145); CREATININE 0.97 mg/dL (0.55-1.02); SODIUM 142 mmol/L (136-145); eGFR NON BLACK RACES 59 (>60)
[2020-06-21 05:58] LABS: WHITE BLOOD COUNT 33.8 X10^3/uL (3.6-10.0)
[2020-06-21] MEDS: NS 1/2 1000 ML IV 1,000 ML IV SCH ×2 (06:14→21:19)
[2020-06-21] MEDS: XOPENEX 1.25 MG/3 ML NEBULE NEB SCH ×3 (06:26→21:50)
[2020-06-21 06:46] LABS: PLATELET MORPHOLOGY COMMENT NORMAL (NORMAL)
[2020-06-21] MEDS: PULMICORT NEB TX 0.5 MG NEB SCH ×2 (09:15→21:50)
[2020-06-21] MEDS: ROCEPHIN 1 GRAM IV PREMIX 1 G/50 ML IV.SOLN. IV SCH (09:28)
[2020-06-21] MEDS: VSL#3 PO SCH (09:29)
[2020-06-21] MEDS: LOVENOX INJ 40 MG SYR SC SCH (09:29)
[2020-06-21] MEDS: ROBITUSSIN DM PO SCH ×4 (09:30→21:10)
[2020-06-21] MEDS: PROTONIX INJ 40 MG VIAL IVP SCH ×2 (09:33→21:10)
[2020-06-21] MEDS: ZESTRIL TAB 10 MG PO SCH (09:33)
[2020-06-21] MEDS: ZITHROMAX INJ 500 MG VIAL 250 MG in NS 250 ML IV 250 ML IV SCH (11:03)
[2020-06-21] MEDS: REMDESIVIR 100 MG in NS 250 ML IV 250 ML IV SCH (12:20)
--- NOTE | 2020-06-21 13:37 | PCM.PROG ---
Progress Note Progress Note for Day of Date of Exam: 06/21/20 Subjective Subjective: PT IS A 80 YEAR OLD FEMALE ADMITTED FOR COVID 19 PNEUMONIA WITH HYPOXIA. THIS MORNING SHE REPORTS FEELING A LITTLE BETTER. SHE STILL HAS SOME SHORTNESS OF BREATH WHEN AMBULATING. LABS/IMAGING: WBC 30.5>33.8, HGB 10.8, PLT 175, NA 142, K 3.2, CR 0.97, GLUCOSE 135, CRP 82>37, CXR: Stable appearance of bilateral infiltrates/pneumonia. No new abnormality identified. HER TREATMENT COURSE INCLUDES: REMDESIVIR, CONVALESCENT PLASMA ORDERED, ANTIBIOTICS: ZITHROMAX AND ROCEPHIN, BRONCHODILATORS, RESPIRATORY SUPPORT, I/S, PNEUMONIA PROTOCOL. PT IS STILL REQUIRING SUPPLEMENTAL O2 OF 3L NASAL CANNULA, WILL WEAN TOLERATED. PT CONTINUES TO HAVE INCREASE OF LEUKOCYTOSIS, WITH THE HISTORY OF CLL POSSIBLY BE RELATED, HOLD ON SOLUMEDROL AND TREND. OTHERWISE CONTINUE CURRENT CARE PLAN. WILL CLOSELY MONITOR AND FOLLOW UP LABS/IMAGING IN THE MORNING. Past Medical Family Social History Past Med/Fam/Surg Hx: No changes since H&P Allergies: Allergies No Known Drug Allergies Allergy (Verified 06/15/20 11:35) Review of Systems ROS: No change since H&P Vital Signs and I&O's Vital Signs: Temperature 98.2 F Pulse Rate [Right] 67 Pulse Rate 60 Respiratory Rate 20 Blood Pressure [Left Arm] 120/60 Blood Pressure 134/90 O2 Sat by Pulse Oximetry 94 Intake and Output: Intake & Output 06/18/20 06/19/20 06/20/20 06/21/20 23:59 23:59 23:59 23:59 Intake Total 3008 / 3008 2666 / 2666 2645 / 2645 700 / 700 Balance 3008 / 3008 2666 / 2666 2645 / 2645 700 / 700 Physical Exam Oriented: Normal Eyes: Normal Ear: Normal Nose: Normal Throat: Normal Respiratory: Diminished Cardiovascular: Normal and Edema : Normal Auscultation: Bowel Sounds: Normal Tenderness: Normal Skin: Decreased Turgur Musculoskeletal: Back:Lumbar Psychiatric: Anxiety Affect: Anxious Speech Pattern: Clear and Appropriate Laboratory and Diagnostics Result Diagrams: 06/21/20 05:15 06/21/20 05:15 Labs: 06/17/20 18:25 Sputum - Expectorated Sputum Sputum Culture - Final 06/17/20 18:25 Sputum - Expectorated Sputum - Final 06/17/20 17:08 Blood Blood Culture - Preliminary 06/17/20 16:33 Blood Blood Culture - Preliminary Laboratory WBC 33.8 X10^3/uL (3.6-10.0) H* 06/21/20 05:15 RBC 3.59 X10^6/uL (3.5-5.4) 06/21/20 05:15 Hgb 10.8 g/dL (12.0-16.0) L 06/21/20 05:15 Hct 33.3 % (36.0-47.0) L 06/21/20 05:15 MCV 92.7 fL (80.0-100.0) 06/21/20 05:15 MCH 30.1 pg (27.0-34.0) 06/21/20 05:15 MCHC 32.5 g/dL (33.0-35.0) L 06/21/20 05:15 RDW 13.0 % (11.6-16.5) 06/21/20 05:15 Plt Count 175 X10^3/uL (150.0-450.0) 06/21/20 05:15 Plt Count Comment Adequate (ADEQUATE) 06/21/20 05:15 MPV 9.5 fL (7.4-11.0) 06/21/20 05:15 Neut % (Auto) 27.3 % (42.0-75.0) L 06/21/20 05:15 Lymph % (Auto) 70.5 % (21.0-51.0) H 06/21/20 05:15 [place] % (Auto) 2.2 % (0.0-13.0) 06/21/20 05:15 Eos % (Auto) 0.0 % (0.9-2.9) L 06/21/20 05:15 Baso % (Auto) 0 % (0.2-1.0) L 06/21/20 05:15 Neut # (Auto) 9.2 x10^3/uL (2.2-4.8) H 06/21/20 05:15 Lymph # (Auto) 23.8 X10^3/uL (1.3-2.9) H 06/21/20 05:15 [place] # (Auto) 0.7 x10^3/uL (0.3-0.8) 06/21/20 05:15 Eos # (Auto) 0.0 x10^3/uL (0.0-0.2) 06/21/20 05:15 Baso # (Auto) 0.0 X10^3/uL (0.0-0.1) 06/21/20 05:15 Absolute Nucleated RBC 0.0 /100WBC 06/21/20 05:15 Total Counted 100 06/21/20 05:15 Neutrophils % (Manual) 21 % (39-76) L 06/21/20 05:15 Band Neutrophils % 2 % (0-10) 06/19/20 05:01 Lymphocytes % (Manual) 79 % (13-43) H 06/21/20 05:15 Monocytes % (Manual) 2 % (4-9) L 06/19/20 05:01 Plt Morphology Comment Normal (NORMAL) 06/21/20 05:15 RBC Morphology Normal (NORMAL) 06/21/20 05:15 D-Dimer 1.71 ug/ml (0.0-0.57) H* 06/18/20 05:46 Sample Site R rad 06/18/20 07:00 ABG pH 7.450 (7.35-7.45) 06/18/20 07:00 ABG pCO2 33.0 mmHg (35.0-45.0) L 06/18/20 07:00 ABG pO2 55.0 mmHg (80.0-100.0) L 06/18/20 07:00 ABG HCO3 22.9 mmol/L (22-26) 06/18/20 07:00 ABG O2 Saturation 90.0 % (90-100) 06/18/20 07:00 ABG Base Excess -0.5 mmol/L (-2.0-2.0) 06/18/20 07:00 Ki Test Poss 06/18/20 07:00 A-a Gradient 103.0 mmHg 06/18/20 07:00 FiO2 28.0 06/18/20 07:00 Blood Gas Comments Emily well 06/18/20 07:00 Sodium 142 mmol/L (136-145) 06/21/20 05:15 Corrected Sodium 143 mmol/L (136-145) 06/21/20 05:15 Potassium 3.2 mmol/L (3.5-5.1) L 06/21/20 05:15 Chloride 107 mmol/L (98-107) 06/21/20 05:15 Carbon Dioxide 23.1 mmol/L (21-32) 06/21/20 05:15 BUN 28 mg/dL (7-18) H 06/21/20 05:15 Creatinine 0.97 mg/dL (0.55-1.02) 06/21/20 05:15 Est GFR (MDRD) Af Amer > 60 (>60) 06/21/20 05:15 Est GFR (MDRD) Non-Af 59 (>60) 06/21/20 05:15 Glucose 135 mg/dL (65-99) H 06/21/20 05:15 Calcium 8.3 mg/dL (8.5-10.1) L 06/21/20 05:15 Corrected Calcium 9.7 mg/dL (8.5-10.1) 06/21/20 05:15 Magnesium 2.1 mg/dL (1.7-2.9) 06/18/20 15:20 Ferritin 623 ng/mL (8-252) H 06/17/20 14:00 Total Bilirubin 0.30 mg/dL (0.2-1.0) 06/21/20 05:15 AST 21 Units/L (15-37) 06/21/20 05:15 ALT 21 Units/L (12-78) 06/21/20 05:15 Alkaline Phosphatase 58 Units/L (46-116) 06/21/20 05:15 Creatine Kinase 75 Units/L (26-192) 06/18/20 05:46 CK-MB (CK-2) < 1.0 ng/mL (0-4.0) 06/18/20 05:46 CK/CKMB % Calc 1.3 % (<4) 06/18/20 05:46 Troponin I 0.02 ng/mL (0-1.5) 06/18/20 05:46 C-Reactive Protein 37.60 mg/L (0-3.0) H 06/21/20 05:15 Total Protein 5.0 g/dL (6.4-8.2) L 06/21/20 05:15 Albumin 2.3 g/dL (3.4-5.0) L 06/21/20 05:15 Globulin 2.7 g/dL (2.5-4.5) 06/21/20 05:15 Albumin/Globulin Ratio 0.9 Ratio (1.1-2.1) L 06/21/20 05:15 Specimen Type Random urine 06/18/20 04:24 Urine Color Yellow (YELLOW) 06/18/20 04:24 Urine Appearance Slightly hazy (CLEAR) 06/18/20 04:24 Urine pH 6.0 (5.0 - 8.0) 06/18/20 04:24 Ur Specific [place] 1.025 (1.000-1.030) 06/18/20 04:24 Urine Protein 2+ (NEGATIVE) 06/18/20 04:24 Urine Glucose (UA) Negative (NEGATIVE) 06/18/20 04:24 Urine Ketones 3+ (NEGATIVE) 06/18/20 04:24 Urine Occult Blood 3+ (NEGATIVE) 06/18/20 04:24 Urine Nitrite Negative (NEGATIVE) 06/18/20 04:24 Urine Bilirubin Negative (NEGATIVE) 06/18/20 04:24 Urine Urobilinogen Normal (NORMAL) 06/18/20 04:24 Ur Leukocyte Esterase Negative (NEGATIVE) 06/18/20 04:24 Urine RBC 20-30 /HPF (0-3) A 06/18/20 04:24 Urine WBC None seen /HPF (0-5) 06/18/20 04:24 Ur Squamous Epith Cells Few /HPF (NEGATIVE) 06/18/20 04:24 Amorphous Sediment 2+ /HPF (NEGATIVE) 06/18/20 04:24 Urine Bacteria 1+ /HPF (NEGATIVE) 06/18/20 04:24 Ur Culture Indicated? No/not indicated 06/18/20 04:24 SARS CoV-2 RNA Rapid ANSON Cancelled 06/17/20 14:10 Plan (1) Pneumonia: Status: Acute Plan: DUE TO COVID 19 PNEUMONIA WITH HYPOXIA IV ZITHROMAX, IV REMDESIVIR, SOLU MEDROL ROCEPHIN, IV HYDRATION, STRICT I&OS SUPPLEMENTAL O2, PT, RT (2) Viral gastroenteritis: Status: Acute (3) Respiratory distress: Status: Acute (4) Weakness: Status: Acute (5) Hypokalemia: Status: Acute (6) COVID-19: Status: Acute
[2020-06-21] MEDS ORDERED: NS 1/2 1000 ML IV 1,000 ML IV ONE (20:34)
[2020-06-21] MEDS: CALAN SR 180 MG PO SCH (21:10)
[2020-06-21] MEDS: CATAPRES TAB 0.1 MG PO SCH (21:11)
[2020-06-22] MEDS: XOPENEX 1.25 MG/3 ML NEBULE NEB SCH ×3 (06:15→21:00)
--- NOTE | 2020-06-22 06:34 | RAD ---
HISTORYCOVID PNEUMONIASTUDYCHEST, 1 [id number]/26/2020.TECHNIQUEAP view of the chestFINDINGSCardiac and mediastinal contours are within normal limits. Similar appearance of multifocal bilateral airspace disease. Blunted costophrenic sulci. No pneumothorax.IMPRESSIONNo significant change. Suspect small pleural effusions.Electronically signed by: Rc Betancourt (Jun 22, 2020 06:33:01)
[2020-06-22 06:42] LABS: BASOPHILS % (AUTO) 0 % (0.2-1.0); HEMATOCRIT 32.9 % (36.0-47.0); LYMPHOCYTES # (AUTO) 24.3 X10^3/uL (1.3-2.9); LYMPHOCYTES % (AUTO) 67.7 % (21.0-51.0); MEAN CORPUSCULAR HEMOGLOBIN 30.8 pg (27.0-34.0); MEAN CORPUSCULAR HGB CONC 33.3 g/dL (33.0-35.0); MEAN CORPUSCULAR VOLUME 92.3 fL (80.0-100.0); MEAN PLATELET VOLUME 9.5 fL (7.4-11.0); MONOCYTES # (AUTO) 0.7 x10^3/uL (0.3-0.8); MONOCYTES % (AUTO) 1.8 % (0.0-13.0); NEUTROPHILS % (AUTO) 30.5 % (42.0-75.0); PLATELET COUNT 173 X10^3/uL (150.0-450.0); RED BLOOD COUNT 3.56 X10^6/uL (3.5-5.4)
[2020-06-22 06:43] LABS: ALANINE AMINOTRANSFERASE 27 Units/L (12-78); ALBUMIN 2.2 g/dL (3.4-5.0); ALKALINE PHOSPHATASE 62 Units/L (46-116); ASPARTATE AMINO TRANSFERASE 27 Units/L (15-37); BLOOD UREA NITROGEN 30 mg/dL (7-18); CALCIUM 8.2 mg/dL (8.5-10.1); CARBON DIOXIDE 25.5 mmol/L (21-32); CHLORIDE 109 mmol/L (98-107); COR CA(FOR HYPOALB) 9.6 mg/dL (8.5-10.1); CREATININE 0.92 mg/dL (0.55-1.02); SODIUM 144 mmol/L (136-145); TOTAL PROTEIN 4.7 g/dL (6.4-8.2); eGFR NON BLACK RACES > 60 (>60)
[2020-06-22 06:53] LABS: WHITE BLOOD COUNT 35.9 X10^3/uL (3.6-10.0)
[2020-06-22 07:37] LABS: PLATELET MORPHOLOGY COMMENT NORMAL (NORMAL)
[2020-06-22 09:54] LABS: ABG ALLEN TEST POS; ABG BASE EXCESS 1.6 mmol/L (-2.0-2.0); ABG HCO3 23.9 mmol/L (22-26)
[2020-06-22] MEDS: NS 1/2 1000 ML IV 1,000 ML IV SCH (10:00)
[2020-06-22] MEDS: ROBITUSSIN DM PO SCH ×4 (10:09→21:30)
[2020-06-22] MEDS: PROTONIX INJ 40 MG VIAL IVP SCH ×2 (10:09→21:30)
[2020-06-22] MEDS: VSL#3 PO SCH (10:09)
[2020-06-22] MEDS: ROCEPHIN 1 GRAM IV PREMIX 1 G/50 ML IV.SOLN. IV SCH (10:09)
[2020-06-22] MEDS: CALAN SR 180 MG PO SCH ×2 (10:10→21:30)
[2020-06-22] MEDS: ZESTRIL TAB 10 MG PO SCH (10:10)
[2020-06-22] MEDS: LOVENOX INJ 40 MG SYR SC SCH (10:21)
[2020-06-22] MEDS: PULMICORT NEB TX 0.5 MG NEB SCH ×2 (10:46→21:00)
[2020-06-22] MEDS ORDERED: ZITHROMAX INJ 500 MG VIAL IV ONE (18:53)
[2020-06-22] MEDS ORDERED: NS 250 ML IV 250 ML IV ONE (18:53)
[2020-06-22] MEDS: ZITHROMAX INJ 500 MG VIAL 250 MG in NS 250 ML IV 250 ML IV SCH (18:59)
[2020-06-22] MEDS: ASCORBIC ACID INJ MULTI-DOSE VIAL 1,500 MG in NS 100 ML IV 100 ML IV SCH ×2 (19:40→20:00)
[2020-06-22] MEDS: ZOSYN VIAL 3.375 GRAMS 3.375 G in NS 100 ML IV + SPIKE MINIBAG* 100 ML IV SCH ×2 (21:06→21:30)
[2020-06-22] MEDS: CATAPRES TAB 0.1 MG PO SCH (21:30)
[2020-06-23] MEDS: NS 1/2 1000 ML IV 1,000 ML IV SCH ×3 (02:55→20:25)
[2020-06-23 05:33] LABS: BASOPHILS % (AUTO) 0 % (0.2-1.0); EOSINOPHILS # (AUTO) 0.1 x10^3/uL (0.0-0.2); EOSINOPHILS % (AUTO) 0.2 % (0.9-2.9); HEMATOCRIT 31.5 % (36.0-47.0); HEMOGLOBIN 10.4 g/dL (12.0-16.0); LYMPHOCYTES % (AUTO) 70.4 % (21.0-51.0); MEAN CORPUSCULAR HEMOGLOBIN 30.5 pg (27.0-34.0); MEAN CORPUSCULAR HGB CONC 33.1 g/dL (33.0-35.0); MEAN CORPUSCULAR VOLUME 92.2 fL (80.0-100.0); MEAN PLATELET VOLUME 9.2 fL (7.4-11.0); MONOCYTES # (AUTO) 0.3 x10^3/uL (0.3-0.8); MONOCYTES % (AUTO) 1.2 % (0.0-13.0); NEUTROPHILS % (AUTO) 28.2 % (42.0-75.0); PLATELET COUNT 156 X10^3/uL (150.0-450.0); RED BLOOD COUNT 3.42 X10^6/uL (3.5-5.4); WHITE BLOOD COUNT 28.4 X10^3/uL (3.6-10.0)
[2020-06-23] MEDS: ZOSYN VIAL 3.375 GRAMS 3.375 G in NS 100 ML IV + SPIKE MINIBAG* 100 ML IV SCH ×3 (05:41→21:41)
[2020-06-23] MEDS: ASCORBIC ACID INJ MULTI-DOSE VIAL 1,500 MG in NS 100 ML IV 100 ML IV SCH ×4 (05:41→20:23)
[2020-06-23 05:50] LABS: ABG BASE EXCESS 6.5 mmol/L (-2.0-2.0); ABG HCO3 29.1 mmol/L (22-26)
[2020-06-23 05:52] LABS: ALANINE AMINOTRANSFERASE 28 Units/L (12-78); ALKALINE PHOSPHATASE 65 Units/L (46-116); ASPARTATE AMINO TRANSFERASE 30 Units/L (15-37); BLOOD UREA NITROGEN 18 mg/dL (7-18); CALCIUM 7.9 mg/dL (8.5-10.1); CARBON DIOXIDE 26.8 mmol/L (21-32); CHLORIDE 107 mmol/L (98-107); COR CA(FOR HYPOALB) 9.5 mg/dL (8.5-10.1); CREATININE 0.91 mg/dL (0.55-1.02); SODIUM 142 mmol/L (136-145); TOTAL PROTEIN 4.7 g/dL (6.4-8.2); eGFR NON BLACK RACES > 60 (>60)
[2020-06-23] MEDS: K-DUR TAB 20 MEQ PO PRN ×2 (06:17→12:52)
--- NOTE | 2020-06-23 06:36 | RAD ---
HISTORYSOBSTUDYCHEST, 1 [id number]/28/2020FINDINGSThe trachea is midline. The cardiac silhouette is unremarkable. Patchy bilateral airspace disease unchanged. No pneumothorax.. The bony thorax is unremarkable.IMPRESSIONStable portable chestElectronically signed by: Gilberto Hernadez (Jun 23, 2020 06:34:58)
[2020-06-23 07:11] LABS: PLATELET MORPHOLOGY COMMENT NORMAL (NORMAL)
[2020-06-23] MEDS: XOPENEX 1.25 MG/3 ML NEBULE NEB SCH ×4 (09:20→21:55)
[2020-06-23] MEDS: PULMICORT NEB TX 0.5 MG NEB SCH ×2 (09:20→21:55)
[2020-06-23 09:54] LABS: MAGNESIUM 1.6 mg/dL (1.7-2.9)
[2020-06-23] MEDS: CALAN SR 180 MG PO SCH ×2 (09:57→20:23)
[2020-06-23] MEDS: ZESTRIL TAB 10 MG PO SCH (09:57)
[2020-06-23] MEDS: PROTONIX INJ 40 MG VIAL IVP SCH ×2 (09:58→20:24)
[2020-06-23] MEDS: ROBITUSSIN DM PO SCH ×4 (09:58→20:25)
[2020-06-23] MEDS: VSL#3 PO SCH (09:58)
[2020-06-23] MEDS: LOVENOX INJ 40 MG SYR SC SCH (09:58)
[2020-06-23] MEDS: MAGNESIUM SULFATE 1 GRAM/100 mL PREMIX 1 GM/100 ML BAG IV PRN ×2 (12:52→18:30)
[2020-06-23] MEDS: ZITHROMAX INJ 500 MG VIAL 250 MG in NS 250 ML IV 250 ML IV SCH (15:09)
[2020-06-23] MEDS ORDERED: NS 1/2 1000 ML IV 1,000 ML IV ONE (19:25)
[2020-06-23] MEDS: CATAPRES TAB 0.1 MG PO SCH (20:24)
[2020-06-24] MEDS ORDERED: NS 100 ML IV 100 ML IV ONE (01:38)
[2020-06-24] MEDS: NS 1/2 1000 ML IV 1,000 ML IV SCH ×2 (03:37→17:00)
[2020-06-24] MEDS: ASCORBIC ACID INJ MULTI-DOSE VIAL 1,500 MG in NS 100 ML IV 100 ML IV SCH ×4 (03:37→20:30)
[2020-06-24] MEDS: ZOSYN VIAL 3.375 GRAMS 3.375 G in NS 100 ML IV + SPIKE MINIBAG* 100 ML IV SCH ×3 (05:25→22:54)
[2020-06-24 06:06] LABS: ALANINE AMINOTRANSFERASE 26 Units/L (12-78); ALBUMIN 2.2 g/dL (3.4-5.0); ALKALINE PHOSPHATASE 77 Units/L (46-116); ASPARTATE AMINO TRANSFERASE 26 Units/L (15-37); BLOOD UREA NITROGEN 15 mg/dL (7-18); CALCIUM 8.1 mg/dL (8.5-10.1); CARBON DIOXIDE 24.6 mmol/L (21-32); CHLORIDE 106 mmol/L (98-107); COR CA(FOR HYPOALB) 9.5 mg/dL (8.5-10.1); CREATININE 0.86 mg/dL (0.55-1.02); SODIUM 142 mmol/L (136-145); TOTAL PROTEIN 5.1 g/dL (6.4-8.2); eGFR NON BLACK RACES > 60 (>60)
[2020-06-24 07:14] LABS: BASOPHILS % (AUTO) 0 % (0.2-1.0); EOSINOPHILS # (AUTO) 0.1 x10^3/uL (0.0-0.2); EOSINOPHILS % (AUTO) 0.3 % (0.9-2.9); HEMATOCRIT 32.2 % (36.0-47.0); HEMOGLOBIN 10.3 g/dL (12.0-16.0); LYMPHOCYTES # (AUTO) 19.9 X10^3/uL (1.3-2.9); LYMPHOCYTES % (AUTO) 61.6 % (21.0-51.0); MEAN CORPUSCULAR HEMOGLOBIN 29.7 pg (27.0-34.0); MEAN CORPUSCULAR HGB CONC 31.8 g/dL (33.0-35.0); MEAN CORPUSCULAR VOLUME 93.3 fL (80.0-100.0); MEAN PLATELET VOLUME 10.1 fL (7.4-11.0); MONOCYTES # (AUTO) 0.4 x10^3/uL (0.3-0.8); MONOCYTES % (AUTO) 1.3 % (0.0-13.0); NEUTROPHILS # (AUTO) 11.9 x10^3/uL (2.2-4.8); NEUTROPHILS % (AUTO) 36.8 % (42.0-75.0); PLATELET COUNT 153 X10^3/uL (150.0-450.0); RED BLOOD COUNT 3.45 X10^6/uL (3.5-5.4)
[2020-06-24 07:20] LABS: WHITE BLOOD COUNT 32.2 X10^3/uL (3.6-10.0)
[2020-06-24 07:44] LABS: PLATELET MORPHOLOGY COMMENT NORMAL (NORMAL)
[2020-06-24] MEDS: K-DUR TAB 20 MEQ PO PRN (09:00)
[2020-06-24] MEDS: VSL#3 PO SCH (09:00)
[2020-06-24] MEDS: CALAN SR 180 MG PO SCH ×2 (09:00→20:30)
[2020-06-24] MEDS: ZESTRIL TAB 10 MG PO SCH (09:00)
[2020-06-24] MEDS: ROBITUSSIN DM PO SCH ×4 (09:33→20:31)
[2020-06-24] MEDS: LOVENOX INJ 40 MG SYR SC SCH (09:34)
[2020-06-24] MEDS: PROTONIX INJ 40 MG VIAL IVP SCH ×2 (09:34→20:31)
[2020-06-24 09:46] LABS: CKMB % 3.2 % (<4); CREATINE KINASE MB 2.3 ng/mL (0-4.0); TROPONIN I 0.05 ng/mL (0-1.5)
[2020-06-24] MEDS: PULMICORT NEB TX 0.5 MG NEB SCH ×2 (10:00→21:27)
[2020-06-24] MEDS: XOPENEX 1.25 MG/3 ML NEBULE NEB SCH ×4 (10:00→21:27)
[2020-06-24] MEDS: ZITHROMAX INJ 500 MG VIAL 250 MG in NS 250 ML IV 250 ML IV SCH (10:21)
[2020-06-24] MEDS ORDERED: K-DUR TAB 20 MEQ PO SCH (13:00)
[2020-06-24 13:31] LABS: CKMB % 4.6 % (<4); CREATINE KINASE MB 3.6 ng/mL (0-4.0); TROPONIN I 0.17 ng/mL (0-1.5)
[2020-06-24] MEDS: LASIX IVP SCH (15:08)
[2020-06-24 19:42] LABS: CKMB % 4.6 % (<4); TROPONIN I 0.29 ng/mL (0-1.5)
[2020-06-24 19:48] LABS: CREATINE KINASE MB 4.8 ng/mL (0-4.0)
[2020-06-24] MEDS: CATAPRES TAB 0.1 MG PO SCH (20:30)
[2020-06-25] MEDS: ASCORBIC ACID INJ MULTI-DOSE VIAL 1,500 MG in NS 100 ML IV 100 ML IV SCH (02:27)
[2020-06-25] MEDS: TYLENOL 325 MG TAB PO PRN ×2 (02:29→18:04)
[2020-06-25] MEDS: LIPITOR TAB 40 MG PO SCH (03:10)
[2020-06-25 03:58] LABS: BILIRUBIN,URINE NEGATIVE (NEGATIVE); BLOOD/HEMOGLOBIN,URINE NEGATIVE (NEGATIVE); GLUCOSE, URINE NEGATIVE (NEGATIVE); KETONES,URINE 4+ (NEGATIVE); LEUKOCYTE ESTERASE ,URINE NEGATIVE (NEGATIVE); NITRITES,URINE NEGATIVE (NEGATIVE); PROTEIN,URINE 2+ (NEGATIVE); UROBILINOGEN,URINE NORMAL (NORMAL)
[2020-06-25 04:03] LABS: APPEARANCE,URINE CLEAR (CLEAR); COLOR,URINE PALE YELLOW (YELLOW)
[2020-06-25 04:04] LABS: BACTERIA,URINE NEGATIVE /HPF (NEGATIVE); RBC,URINE NONE SEEN /HPF (0-3); SQUAMOUS EPITHELIAL CELL,UR RARE /HPF (NEGATIVE)
[2020-06-25] MEDS: ZOSYN VIAL 3.375 GRAMS 3.375 G in NS 100 ML IV + SPIKE MINIBAG* 100 ML IV SCH (05:46)
[2020-06-25] MEDS: NS 1/2 1000 ML IV 1,000 ML IV SCH ×2 (06:14→22:13)
[2020-06-25 06:27] LABS: BASOPHILS % (AUTO) 0 % (0.2-1.0); EOSINOPHILS % (AUTO) 0.1 % (0.9-2.9); HEMATOCRIT 30.7 % (36.0-47.0); HEMOGLOBIN 10.2 g/dL (12.0-16.0); LYMPHOCYTES % (AUTO) 54.3 % (21.0-51.0); MEAN CORPUSCULAR HEMOGLOBIN 30.9 pg (27.0-34.0); MEAN CORPUSCULAR VOLUME 93.4 fL (80.0-100.0); MEAN PLATELET VOLUME 9.5 fL (7.4-11.0); MONOCYTES # (AUTO) 0.2 x10^3/uL (0.3-0.8); MONOCYTES % (AUTO) 0.6 % (0.0-13.0); NEUTROPHILS # (AUTO) 17.4 x10^3/uL (2.2-4.8); PLATELET COUNT 161 X10^3/uL (150.0-450.0); RED BLOOD COUNT 3.29 X10^6/uL (3.5-5.4); RED CELL DISTRIBUTION WIDTH 13.3 % (11.6-16.5)
[2020-06-25 06:39] LABS: ALANINE AMINOTRANSFERASE 23 Units/L (12-78); ALBUMIN 2.1 g/dL (3.4-5.0); ALKALINE PHOSPHATASE 102 Units/L (46-116); ASPARTATE AMINO TRANSFERASE 30 Units/L (15-37); BLOOD UREA NITROGEN 15 mg/dL (7-18); CALCIUM 8.1 mg/dL (8.5-10.1); CARBON DIOXIDE 20.9 mmol/L (21-32); CHLORIDE 107 mmol/L (98-107); COR CA(FOR HYPOALB) 9.6 mg/dL (8.5-10.1); CREATININE 0.92 mg/dL (0.55-1.02); SODIUM 143 mmol/L (136-145); TOTAL PROTEIN 5.5 g/dL (6.4-8.2); eGFR NON BLACK RACES > 60 (>60)
[2020-06-25 06:40] LABS: WHITE BLOOD COUNT 38.6 X10^3/uL (3.6-10.0)
[2020-06-25 06:44] LABS: ABG BASE EXCESS -2.2 mmol/L (-2.0-2.0); ABG HCO3 20.9 mmol/L (22-26)
[2020-06-25 06:45] LABS: ABG ALLEN TEST POSS
--- NOTE | 2020-06-25 06:57 | RAD ---
HISTORYFollow-up COVID-19STUDYChest AP ovpiqkitXUURUZYJVW56/29/2020FINDINGSThe heart is enlarged. No definite congestive heart failure is noted. Interstitial and ground-glass infiltrates in the right lung are not significantly changed. However there has been a significant increase in the left lung infiltrate present. There is now diffuse ground-glass and alveolar infiltrates predominately throughout the left upper lobe. No pleural effusions are identified. Bony thorax is unremarkable.IMPRESSIONSignificant worsening left upper lobe lung infiltratesNo change right lung infiltratesNo change cardiomegalyElectronically signed by: YAZAN MARIE (Jun 25, 2020 06:55:58)
[2020-06-25 07:31] LABS: PLATELET MORPHOLOGY COMMENT NORMAL (NORMAL)
[2020-06-25] MEDS: CALAN SR 180 MG PO SCH ×2 (09:48→22:13)
[2020-06-25] MEDS: LASIX IVP SCH (09:49)
[2020-06-25] MEDS: K-DUR TAB 20 MEQ PO PRN (09:50)
[2020-06-25] MEDS: PREDNISONE TAB 20 MG PO SCH (09:51)
[2020-06-25] MEDS: LOVENOX INJ 40 MG SYR SC SCH (09:51)
[2020-06-25] MEDS: ZITHROMAX INJ 500 MG VIAL 250 MG in NS 250 ML IV 250 ML IV SCH (09:51)
[2020-06-25] MEDS: ZESTRIL TAB 10 MG PO SCH (09:51)
[2020-06-25] MEDS: VSL#3 PO SCH (09:52)
[2020-06-25] MEDS: ROBITUSSIN DM PO SCH ×4 (09:52→22:13)
[2020-06-25] MEDS: PROTONIX INJ 40 MG VIAL IVP SCH ×2 (09:52→22:13)
[2020-06-25] MEDS: XOPENEX 1.25 MG/3 ML NEBULE NEB SCH ×4 (10:10→20:35)
[2020-06-25] MEDS: PULMICORT NEB TX 0.5 MG NEB SCH ×2 (10:10→20:35)
[2020-06-25 10:35] LABS: TROPONIN I 0.16 ng/mL (0-1.5)
[2020-06-25 11:01] LABS: CREATINE KINASE MB 3.3 ng/mL (0-4.0)
[2020-06-25] MEDS: ZOFRAN INJ 4 MG VIAL IVP SCH ×2 (14:23→22:13)
[2020-06-25] MEDS: ASCORBIC ACID INJ MULTI-DOSE VIAL 1,500 MG in NS 50 ML IV 50 ML IV SCH ×2 (14:39→22:13)
[2020-06-25] MEDS: ZOSYN VIAL 3.375 GRAMS 3.375 G in NS 50 ML IV + SPIKE MINIBAG* 50 ML IV SCH ×2 (15:29→22:45)
[2020-06-25 17:22] LABS: CKMB % 4.6 % (<4); TROPONIN I 0.53 ng/mL (0-1.5)
[2020-06-25 17:25] LABS: CREATINE KINASE MB 4.3 ng/mL (0-4.0)
[2020-06-25] MEDS ORDERED: NS 1/2 1000 ML IV 1,000 ML IV ONE (20:50)
[2020-06-25] MEDS: CATAPRES TAB 0.1 MG PO SCH (22:13)
[2020-06-25] MEDS ORDERED: IVERMECTIN PO ONE (22:18)
[2020-06-25] MEDS ORDERED: VITAMIN A PO SCH (22:30)
[2020-06-25] MEDS ORDERED: VITAMIN D (1.25MG) PO SCH (22:30)
[2020-06-25 22:58] LABS: CKMB % 5.4 % (<4); TROPONIN I 0.92 ng/mL (0-1.5)
[2020-06-25] MEDS ORDERED: ASCORBIC ACID INJ MULTI-DOSE VIAL 1,500 MG in NS 100 ML IV 100 ML IV SCH (23:00)
[2020-06-25 23:01] LABS: CREATINE KINASE MB 5.6 ng/mL (0-4.0)
[2020-06-26] MEDS: ASCORBIC ACID INJ MULTI-DOSE VIAL 1,500 MG in NS 50 ML IV 50 ML IV SCH ×4 (02:55→21:24)
[2020-06-26] MEDS: ZINC SULFATE PO SCH ×3 (03:05→21:23)
[2020-06-26] MEDS: VIBRAMYCIN PO SCH ×3 (03:05→21:23)
[2020-06-26] MEDS: THIAMINE HCL INJ IVP SCH ×3 (03:05→21:23)
[2020-06-26] MEDS: PEPCID TAB 20 MG PO SCH ×3 (03:15→21:23)
[2020-06-26 04:55] LABS: ABG BASE EXCESS -0.1 mmol/L (-2.0-2.0); ABG HCO3 23.9 mmol/L (22-26)
[2020-06-26] MEDS: ZOSYN VIAL 3.375 GRAMS 3.375 G in NS 50 ML IV + SPIKE MINIBAG* 50 ML IV SCH ×3 (06:30→21:22)
[2020-06-26] MEDS: ZOFRAN INJ 4 MG VIAL IVP SCH (06:30)
[2020-06-26 06:36] LABS: BASOPHILS % (AUTO) 0 % (0.2-1.0); HEMATOCRIT 31.5 % (36.0-47.0); LYMPHOCYTES # (AUTO) 23.7 X10^3/uL (1.3-2.9); LYMPHOCYTES % (AUTO) 58.4 % (21.0-51.0); MEAN CORPUSCULAR HEMOGLOBIN 29.7 pg (27.0-34.0); MEAN CORPUSCULAR HGB CONC 31.7 g/dL (33.0-35.0); MEAN CORPUSCULAR VOLUME 93.7 fL (80.0-100.0); MEAN PLATELET VOLUME 9.7 fL (7.4-11.0); MONOCYTES # (AUTO) 0.7 x10^3/uL (0.3-0.8); MONOCYTES % (AUTO) 1.7 % (0.0-13.0); NEUTROPHILS # (AUTO) 16.2 x10^3/uL (2.2-4.8); NEUTROPHILS % (AUTO) 39.9 % (42.0-75.0); PLATELET COUNT 152 X10^3/uL (150.0-450.0); RED BLOOD COUNT 3.36 X10^6/uL (3.5-5.4); RED CELL DISTRIBUTION WIDTH 13.3 % (11.6-16.5)
[2020-06-26 06:43] LABS: WHITE BLOOD COUNT 40.5 X10^3/uL (3.6-10.0)
[2020-06-26 06:54] LABS: ALANINE AMINOTRANSFERASE 22 Units/L (12-78); ALBUMIN 1.9 g/dL (3.4-5.0); ALKALINE PHOSPHATASE 113 Units/L (46-116); ASPARTATE AMINO TRANSFERASE 34 Units/L (15-37); BLOOD UREA NITROGEN 20 mg/dL (7-18); CALCIUM 8.1 mg/dL (8.5-10.1); CARBON DIOXIDE 22.8 mmol/L (21-32); CHLORIDE 107 mmol/L (98-107); CKMB % 6.3 % (<4); COR CA(FOR HYPOALB) 9.8 mg/dL (8.5-10.1); CREATINE KINASE 94 Units/L (26-192); CREATININE 0.97 mg/dL (0.55-1.02); SODIUM 145 mmol/L (136-145); TOTAL PROTEIN 5.7 g/dL (6.4-8.2); eGFR NON BLACK RACES 59 (>60)
[2020-06-26 07:01] LABS: CREATINE KINASE MB 5.9 ng/mL (0-4.0)
[2020-06-26 07:22] LABS: PLATELET MORPHOLOGY COMMENT NORMAL (NORMAL); SMUDGE CELLS SUSPECT
--- NOTE | 2020-06-26 08:09 | RAD ---
HISTORYPNEUMONA, COVID+STUDYCHEST, 1 [id number]/31/2020.TECHNIQUEAP view of the chestFINDINGSCardiac silhouette is mostly obscured. Stable bilateral airspace disease. Suspect small pleural effusions. No pneumothorax. Soft tissue attenuation limits evaluation.IMPRESSIONNo significant change.Electronically signed by: Rc Betancourt (Jun 26, 2020 08:08:13)
[2020-06-26] MEDS: CALAN SR 180 MG PO SCH ×2 (09:06→21:24)
[2020-06-26] MEDS: LOVENOX INJ 40 MG SYR SC SCH (09:07)
[2020-06-26] MEDS: ZESTRIL TAB 10 MG PO SCH (09:08)
[2020-06-26] MEDS: LASIX IVP SCH (09:10)
[2020-06-26] MEDS: XANAX PO PRN ×2 (09:10→21:22)
[2020-06-26] MEDS: PREDNISONE TAB 20 MG PO SCH (09:10)
[2020-06-26] MEDS: PROTONIX INJ 40 MG VIAL IVP SCH ×2 (09:11→21:23)
[2020-06-26] MEDS: ROBITUSSIN DM PO SCH ×4 (09:11→21:24)
[2020-06-26] MEDS: VSL#3 PO SCH (09:12)
[2020-06-26] MEDS: XOPENEX 1.25 MG/3 ML NEBULE NEB SCH ×4 (10:00→20:30)
[2020-06-26] MEDS: PULMICORT NEB TX 0.5 MG NEB SCH ×2 (10:00→20:30)
[2020-06-26] MEDS ORDERED: NS 1/2 1000 ML IV 0 ML IV ONE (11:49)
[2020-06-26] MEDS: NS 1/2 1000 ML IV 1,000 ML IV SCH (14:35)
[2020-06-26] MEDS: LIPITOR TAB 40 MG PO SCH (21:24)
[2020-06-26] MEDS: CATAPRES TAB 0.1 MG PO SCH (21:24)
[2020-06-27] MEDS: ASCORBIC ACID INJ MULTI-DOSE VIAL 1,500 MG in NS 50 ML IV 50 ML IV SCH ×4 (02:13→20:35)
[2020-06-27] MEDS ORDERED: NS 1/2 1000 ML IV 1,000 ML IV ONE (02:14)
[2020-06-27] MEDS: NS 1/2 1000 ML IV 1,000 ML IV SCH ×3 (02:16→16:31)
[2020-06-27] MEDS: XANAX PO PRN (05:06)
[2020-06-27] MEDS: ZOSYN VIAL 3.375 GRAMS 3.375 G in NS 50 ML IV + SPIKE MINIBAG* 50 ML IV SCH ×3 (05:23→22:11)
[2020-06-27 06:52] LABS: BASOPHILS % (AUTO) 0 % (0.2-1.0); EOSINOPHILS # (AUTO) 0.1 x10^3/uL (0.0-0.2); EOSINOPHILS % (AUTO) 0.1 % (0.9-2.9); HEMATOCRIT 31.4 % (36.0-47.0); HEMOGLOBIN 9.9 g/dL (12.0-16.0); LYMPHOCYTES # (AUTO) 24.7 X10^3/uL (1.3-2.9); LYMPHOCYTES % (AUTO) 56.7 % (21.0-51.0); MEAN CORPUSCULAR HEMOGLOBIN 29.7 pg (27.0-34.0); MEAN CORPUSCULAR HGB CONC 31.5 g/dL (33.0-35.0); MEAN CORPUSCULAR VOLUME 94.3 fL (80.0-100.0); MONOCYTES # (AUTO) 0.4 x10^3/uL (0.3-0.8); MONOCYTES % (AUTO) 0.9 % (0.0-13.0); NEUTROPHILS # (AUTO) 18.4 x10^3/uL (2.2-4.8); NEUTROPHILS % (AUTO) 42.3 % (42.0-75.0); PLATELET COUNT 141 X10^3/uL (150.0-450.0); RED BLOOD COUNT 3.33 X10^6/uL (3.5-5.4); RED CELL DISTRIBUTION WIDTH 13.3 % (11.6-16.5)
[2020-06-27 06:55] LABS: ALANINE AMINOTRANSFERASE 20 Units/L (12-78); ALBUMIN 1.9 g/dL (3.4-5.0); ALKALINE PHOSPHATASE 154 Units/L (46-116); ASPARTATE AMINO TRANSFERASE 40 Units/L (15-37); BLOOD UREA NITROGEN 22 mg/dL (7-18); CALCIUM 8.3 mg/dL (8.5-10.1); CARBON DIOXIDE 26.9 mmol/L (21-32); CHLORIDE 109 mmol/L (98-107); CREATININE 1.07 mg/dL (0.55-1.02); SODIUM 148 mmol/L (136-145); TOTAL PROTEIN 6.1 g/dL (6.4-8.2); eGFR NON BLACK RACES 53 (>60)
[2020-06-27 06:57] LABS: WHITE BLOOD COUNT 43.5 X10^3/uL (3.6-10.0)
[2020-06-27 07:39] LABS: BAND NEUTROPHILS % 2 % (0-10); PLATELET MORPHOLOGY COMMENT NORMAL (NORMAL); SMUDGE CELLS SUSPECT
[2020-06-27] MEDS: XOPENEX 1.25 MG/3 ML NEBULE NEB SCH ×4 (07:50→21:05)
[2020-06-27] MEDS: PULMICORT NEB TX 0.5 MG NEB SCH ×2 (07:50→21:05)
[2020-06-27] MEDS: PROTONIX INJ 40 MG VIAL IVP SCH ×2 (08:34→20:35)
[2020-06-27] MEDS: LASIX IVP SCH (08:36)
[2020-06-27] MEDS: LOVENOX INJ 40 MG SYR SC SCH (08:37)
[2020-06-27] MEDS: ZINC SULFATE PO SCH ×3 (09:10→20:45)
[2020-06-27] MEDS: CALAN SR 180 MG PO SCH ×4 (09:11→20:44)
[2020-06-27] MEDS: PEPCID TAB 20 MG PO SCH ×2 (09:14→20:44)
[2020-06-27] MEDS: PREDNISONE TAB 20 MG PO SCH (09:15)
[2020-06-27] MEDS: ROBITUSSIN DM PO SCH ×5 (09:15→20:45)
[2020-06-27] MEDS: ZESTRIL TAB 10 MG PO SCH (09:15)
[2020-06-27] MEDS: VIBRAMYCIN PO SCH ×2 (09:16→20:45)
[2020-06-27] MEDS: VITAMIN D3 125 mcg (5,000 UNITS) PO SCH (09:18)
[2020-06-27] MEDS: VITAMIN A PO SCH (09:18)
[2020-06-27] MEDS: VSL#3 PO SCH (09:19)
[2020-06-27] MEDS: THIAMINE HCL INJ IVP SCH ×2 (12:22→20:36)
[2020-06-27] MEDS ORDERED: NS 1/2 1000 ML IV 1,000 ML with POTASSIUM CHLORIDE INJ 40 MEQ VIAL 40 MEQ IV ONE ×2 (15:00)
[2020-06-27] MEDS: CATAPRES TAB 0.1 MG PO SCH (20:44)
[2020-06-27] MEDS: LIPITOR TAB 40 MG PO SCH (20:45)
[2020-06-28 00:49] LABS: ABG BASE EXCESS 4.7 mmol/L (-2.0-2.0); ABG HCO3 28.2 mmol/L (22-26)
[2020-06-28 00:50] LABS: ABG ALLEN TEST POS
[2020-06-28] MEDS ORDERED: DIPRIVAN VIAL 20 ML ONE (01:31)
[2020-06-28] MEDS ORDERED: DIPRIVAN PREMIX 1 GRAM IV 1,000 MG/100 ML VIAL ONE (01:31)
[2020-06-28] MEDS ORDERED: NORCURON INJ 10 MG VIAL ONE (01:31)
[2020-06-28] MEDS ORDERED: QUELICIN (OR ANECTINE) ONE (01:33)
[2020-06-28] MEDS ORDERED: DIPRIVAN PREMIX 1 GRAM IV 1,000 MG/100 ML VIAL IV PRN ×2 (02:09→02:30)
[2020-06-28] MEDS: ASCORBIC ACID INJ MULTI-DOSE VIAL 1,500 MG in NS 50 ML IV 50 ML IV SCH ×4 (03:01→21:55)
--- NOTE | 2020-06-28 03:11 | RAD ---
STUDY: CHEST, 1 VIEWCOMPARISON: June 26, 2020HISTORY: INTUBATIONFINDINGS:Endotracheal tube has been placed with tip measuring 43 mm above the parisa. Persistent diffuse alveolar airspace disease is seen in the right and left lung unchanged from prior study. Cardiomediastinal contour is stable. No pleural effusion or gross pneumothorax is seen.IMPRESSION:There is no significant change from prior examElectronically signed by: Hitesh Dee (Jun 28, 2020 03:09:17)
--- NOTE | 2020-06-28 03:13 | DR.UPDATE ---
H&P Update History and Physical Update: History and Physical reviewed and patient examined. Changes noted: NO Yes with the following:will intubate and place central line H&P Reviewed: Yes Patient was examined?: Yes Procedures (ALL) - Intubation Time out performed: Yes Sedative: other (propofol 80mg) paralytic: succinylchline (50mg, vecuronium 8mg after return of spontaneous resp) Laryngoscope: fiber optic video scope (glidescope 3) ET tube size: 7.5 Tube secured depth: 21 Tube secured location: teeth Tube placement confirmation: visualized tube passing through cords, equal breath sounds bilaterally, no breath sounds over epigastrium, comfirmation by capnometer Patient tolerated procedure: Yes Intubation complications: none
--- NOTE | 2020-06-28 03:37 | RAD ---
STUDY: CHEST, 1 VIEWCOMPARISON: June 28, 2020HISTORY: CENTRAL LINE PLACEMENTFINDINGS:A right IJ central line is been placed with tip projecting over the distal SVC near the right atrial junction region. The tip of the endotracheal tube is located 34 mm above the parisa. The cardiomediastinal contour is stable. No pleural effusion or gross pneumothorax is seen. Diffuse alveolar airspace disease is seen throughout the right and left lung which is unchanged from the prior examination.IMPRESSION:A right IJ central line is been placed with tip projecting over the distal SVC near the right atrial junction region. Otherwise, there is no significant change from prior examination.Electronically signed by: Hitesh Dee (Jun 28, 2020 03:36:03)
[2020-06-28] MEDS ORDERED: NS 1/2 1000 ML IV 1,000 ML IV ONE ×2 (04:22→15:27)
[2020-06-28 04:48] LABS: ABG BASE EXCESS -0.1 mmol/L (-2.0-2.0); ABG HCO3 26.4 mmol/L (22-26)
[2020-06-28 04:49] LABS: ABG ALLEN TEST POS
[2020-06-28] MEDS: NS 1/2 1000 ML IV 1,000 ML IV SCH ×2 (05:34→15:26)
[2020-06-28] MEDS: ZOSYN VIAL 3.375 GRAMS 3.375 G in NS 50 ML IV + SPIKE MINIBAG* 50 ML IV SCH ×2 (05:34→16:16)
[2020-06-28 06:05] LABS: ALANINE AMINOTRANSFERASE 24 Units/L (12-78); ALBUMIN 1.9 g/dL (3.4-5.0); ALKALINE PHOSPHATASE 302 Units/L (46-116); ASPARTATE AMINO TRANSFERASE 56 Units/L (15-37); BLOOD UREA NITROGEN 21 mg/dL (7-18); CALCIUM 8.1 mg/dL (8.5-10.1); CHLORIDE 111 mmol/L (98-107); COR CA(FOR HYPOALB) 9.8 mg/dL (8.5-10.1); CREATININE 1.16 mg/dL (0.55-1.02); TOTAL PROTEIN 6.5 g/dL (6.4-8.2); eGFR NON BLACK RACES 48 (>60)
[2020-06-28 06:07] LABS: BASOPHILS # (AUTO) 0.1 X10^3/uL (0.0-0.1); BASOPHILS % (AUTO) 0.1 % (0.2-1.0); HEMATOCRIT 33.2 % (36.0-47.0); HEMOGLOBIN 10.7 g/dL (12.0-16.0); LYMPHOCYTES # (AUTO) 31.3 X10^3/uL (1.3-2.9); LYMPHOCYTES % (AUTO) 57.4 % (21.0-51.0); MEAN CORPUSCULAR HEMOGLOBIN 30.5 pg (27.0-34.0); MEAN CORPUSCULAR HGB CONC 32.2 g/dL (33.0-35.0); MEAN CORPUSCULAR VOLUME 94.7 fL (80.0-100.0); MEAN PLATELET VOLUME 10.1 fL (7.4-11.0); MONOCYTES # (AUTO) 0.9 x10^3/uL (0.3-0.8); MONOCYTES % (AUTO) 1.6 % (0.0-13.0); NEUTROPHILS # (AUTO) 22.3 x10^3/uL (2.2-4.8); NEUTROPHILS % (AUTO) 40.9 % (42.0-75.0); PLATELET COUNT 122 X10^3/uL (150.0-450.0); RED BLOOD COUNT 3.51 X10^6/uL (3.5-5.4); RED CELL DISTRIBUTION WIDTH 13.8 % (11.6-16.5)
[2020-06-28 06:21] LABS: SODIUM 153 mmol/L (136-145)
[2020-06-28 06:22] LABS: WHITE BLOOD COUNT 54.5 X10^3/uL (3.6-10.0)
[2020-06-28] MEDS ORDERED: D5W 1000 ML IV 1,000 ML IV SCH (06:40)
[2020-06-28 06:51] LABS: BAND NEUTROPHILS % 4 % (0-10); PLATELET MORPHOLOGY COMMENT NORMAL (NORMAL); SMUDGE CELLS SUSPECT
[2020-06-28] MEDS: XOPENEX 1.25 MG/3 ML NEBULE NEB SCH ×4 (08:54→20:50)
[2020-06-28] MEDS: PULMICORT NEB TX 0.5 MG NEB SCH ×2 (08:54→20:50)
[2020-06-28] MEDS: CALAN SR 180 MG PO SCH ×2 (10:07→20:04)
[2020-06-28] MEDS: ZINC SULFATE PO SCH ×2 (10:08→20:07)
[2020-06-28] MEDS: LASIX IVP SCH (10:08)
[2020-06-28] MEDS: LOVENOX INJ 40 MG SYR SC SCH (10:09)
[2020-06-28] MEDS: VITAMIN D3 125 mcg (5,000 UNITS) PO SCH (10:10)
[2020-06-28] MEDS: ZESTRIL TAB 10 MG PO SCH (10:10)
[2020-06-28] MEDS: VITAMIN A PO SCH (10:11)
[2020-06-28] MEDS: ROBITUSSIN DM PO SCH ×4 (10:11→20:07)
[2020-06-28] MEDS: VSL#3 PO SCH (10:11)
[2020-06-28] MEDS: PEPCID TAB 20 MG PO SCH ×2 (10:12→20:06)
[2020-06-28] MEDS: VIBRAMYCIN PO SCH ×2 (10:12→20:06)
[2020-06-28] MEDS: PREDNISONE TAB 20 MG PO SCH (10:13)
[2020-06-28] MEDS: THIAMINE HCL INJ IVP SCH (10:42)
[2020-06-28] MEDS: PROTONIX INJ 40 MG VIAL IVP SCH ×2 (11:45→21:55)
[2020-06-28] MEDS ORDERED: LOPRESSOR INJ 5 MG AMP IVP PRN (12:32)
[2020-06-28] MEDS ORDERED: VERSED ONE (14:11)
[2020-06-28] MEDS ORDERED: CARDIZEM INJ 125 MG VIAL ONE (14:12)
[2020-06-28] MEDS: VERSED 100 MG in NS 100 ML IV 80 ML IV PRN (14:59)
[2020-06-28] MEDS: CARDIZEM INJ 125 MG VIAL 125 MG in NS 100 ML IV 100 ML IV PRN (15:00)
[2020-06-28] MEDS ORDERED: NS 100 ML IV 100 ML IV ONE (15:06)
[2020-06-28] MEDS: K-RIDER 10 MEQ/NS 100 ML 10 MEQ/100 ML BAG IV PRN ×2 (18:16→22:08)
[2020-06-28] MEDS ORDERED: TYLENOL SUPP 650 MG PR PRN (19:09)
[2020-06-28] MEDS: CATAPRES TAB 0.1 MG PO SCH (20:04)
[2020-06-28] MEDS: LIPITOR TAB 40 MG PO SCH (20:05)
[2020-06-28] MEDS: ZOSYN IV SCH (21:57)
[2020-06-28] MEDS: SPIKE MINIBAG IV SCH (21:57)
[2020-06-28] MEDS: NS IV SCH (21:57)
[2020-06-28] MEDS: LACRI-LUBE S.O.P. AFFEYE SCH (22:00)
[2020-06-29] MEDS ORDERED: DIPRIVAN PREMIX 1 GRAM IV 1,000 MG/100 ML VIAL ONE (01:04)
[2020-06-29] MEDS: THIAMINE HCL INJ IVP SCH ×3 (01:21→21:03)
[2020-06-29] MEDS: NS 1/2 1000 ML IV 1,000 ML IV SCH ×2 (01:21→09:24)
[2020-06-29] MEDS: DIPRIVAN PREMIX 1 GRAM IV 1,000 MG/100 ML VIAL IV PRN ×2 (01:22→12:30)
[2020-06-29] MEDS: ASCORBIC ACID INJ MULTI-DOSE VIAL 1,500 MG in NS 50 ML IV 50 ML IV SCH ×4 (02:16→21:06)
[2020-06-29] MEDS: SPIKE MINIBAG IV SCH ×3 (05:12→22:40)
[2020-06-29] MEDS: NS IV SCH ×3 (05:12→22:40)
[2020-06-29] MEDS: ZOSYN IV SCH ×3 (05:12→22:40)
[2020-06-29] MEDS: VERSED 100 MG in NS 100 ML IV 80 ML IV PRN (05:53)
[2020-06-29 05:59] LABS: ABG BASE EXCESS 3.9 mmol/L (-2.0-2.0)
[2020-06-29 06:00] LABS: ABG ALLEN TEST POS; ABG HCO3 33.3 mmol/L (22-26)
[2020-06-29 06:25] LABS: BASOPHILS # (AUTO) 0.1 X10^3/uL (0.0-0.1); BASOPHILS % (AUTO) 0.2 % (0.2-1.0); EOSINOPHILS # (AUTO) 0.1 x10^3/uL (0.0-0.2); EOSINOPHILS % (AUTO) 0.4 % (0.9-2.9); HEMATOCRIT 32.2 % (36.0-47.0); HEMOGLOBIN 10.2 g/dL (12.0-16.0); LYMPHOCYTES % (AUTO) 57.4 % (21.0-51.0); MEAN CORPUSCULAR HEMOGLOBIN 30.5 pg (27.0-34.0); MEAN CORPUSCULAR HGB CONC 31.7 g/dL (33.0-35.0); MEAN CORPUSCULAR VOLUME 96.4 fL (80.0-100.0); MEAN PLATELET VOLUME 9.9 fL (7.4-11.0); MONOCYTES # (AUTO) 0.4 x10^3/uL (0.3-0.8); MONOCYTES % (AUTO) 1.1 % (0.0-13.0); NEUTROPHILS % (AUTO) 40.9 % (42.0-75.0); PLATELET COUNT 73 X10^3/uL (150.0-450.0); RED BLOOD COUNT 3.34 X10^6/uL (3.5-5.4); RED CELL DISTRIBUTION WIDTH 14.3 % (11.6-16.5)
[2020-06-29 06:27] LABS: ALANINE AMINOTRANSFERASE 29 Units/L (12-78); ALBUMIN 1.7 g/dL (3.4-5.0); ALKALINE PHOSPHATASE 272 Units/L (46-116); ASPARTATE AMINO TRANSFERASE 65 Units/L (15-37); BLOOD UREA NITROGEN 26 mg/dL (7-18); CALCIUM 7.9 mg/dL (8.5-10.1); CHLORIDE 114 mmol/L (98-107); COR CA(FOR HYPOALB) 9.7 mg/dL (8.5-10.1); MAGNESIUM 2.2 mg/dL (1.7-2.9); eGFR NON BLACK RACES 33 (>60)
[2020-06-29 06:56] LABS: SODIUM 154 mmol/L (136-145)
[2020-06-29 07:09] LABS: WHITE BLOOD COUNT 36.7 X10^3/uL (3.6-10.0)
[2020-06-29 07:11] LABS: BAND NEUTROPHILS % 2 % (0-10); PLATELET MORPHOLOGY COMMENT NORMAL (NORMAL)
[2020-06-29 07:12] LABS: SMUDGE CELLS SUSPECT
--- NOTE | 2020-06-29 08:04 | RAD ---
[facility] VIEWCOMPARISONX-ray 06/28/2020FINDINGSEndotracheal tube terminates 4.0 cm above the parisa. Central venous catheter terminates in the region of the distal SVC. Heart is probably normal in size. Probable underlying COPD. Diffuse interstitial and ground-glass infiltrates are seen throughout the lungs, unchanged. Small pleural effusions are likely. No pneumothorax is seen.IMPRESSIONPersistent prominent bilateral pneumonia.Electronically signed by: Ulises Bear (Jun 29, 2020 08:02:57)
[2020-06-29] MEDS: XOPENEX 1.25 MG/3 ML NEBULE NEB SCH ×4 (09:00→20:30)
[2020-06-29] MEDS: PULMICORT NEB TX 0.5 MG NEB SCH ×2 (09:00→20:30)
[2020-06-29] MEDS ORDERED: NS 1/2 1000 ML IV 1,000 ML IV ONE (09:16)
[2020-06-29] MEDS: LOVENOX INJ 40 MG SYR SC SCH (09:25)
[2020-06-29] MEDS: LACRI-LUBE S.O.P. AFFEYE SCH ×2 (09:25→20:59)
[2020-06-29] MEDS: LASIX IVP SCH (09:26)
[2020-06-29] MEDS: PROTONIX INJ 40 MG VIAL IVP SCH ×2 (09:26→21:02)
[2020-06-29] MEDS: CARDIZEM INJ 125 MG VIAL 125 MG in NS 100 ML IV 100 ML IV PRN ×2 (10:03→21:38)
[2020-06-29] MEDS ORDERED: NS 250 ML IV 250 ML IV ONE (10:46)
[2020-06-29] MEDS ORDERED: DOPAMINE IV PREMIX 400 MG/250 ML 400 MG/250 ML BAG IV ONE (11:15)
[2020-06-29] MEDS ORDERED: DOPAMINE IV PREMIX 400 MG/250 ML 400 MG/250 ML BAG IV PRN (11:20)
[2020-06-29] MEDS ORDERED: LANOXIN INJ ONE (12:18)
[2020-06-29] MEDS: LANOXIN INJ IVP SCH (12:29)
[2020-06-29] MEDS: LEVOPHED INJ 8 MG in D5W 250 ML IV 242 ML IV PRN (13:00)
[2020-06-29] MEDS ORDERED: D5W 1000 ML IV 1,000 ML IV ONE ×2 (13:17→16:38)
[2020-06-29] MEDS ORDERED: D5W 1000 ML IV 1,000 ML IV SCH (13:50)
--- NOTE | 2020-06-29 14:09 | RAD ---
HISTORYNG tube placedSTUDYKUBCOMPARISONNoneFINDINGSThere is an NG tube with its tip and side hole within the stomach . Advancement of several cm should be considered for optimal performance, however. The abdominal gas pattern is nonspecific and nonobstructive. No abnormal masses or abnormal calcifications are identifi ed. The regional skeleton is intact.IMPRESSIONNG tube tip within the stomach and side hole just barel y within the stomach. Advancement of several cm is recommended for optimal performance.Electronically signed by: YAZAN MARIE (Jun 29, 2020 14:07:56)
[2020-06-29] MEDS: PREDNISONE TAB 20 MG PO SCH (15:27)
[2020-06-29] MEDS: VIBRAMYCIN PO SCH (15:28)
[2020-06-29] MEDS: ELIQUIS PO SCH ×2 (15:28→21:04)
[2020-06-29] MEDS: VITAMIN D3 125 mcg (5,000 UNITS) PO SCH (15:29)
[2020-06-29] MEDS: SOLU-Medrol 125 MG VIAL IVP SCH ×3 (15:29→22:40)
[2020-06-29] MEDS: VSL#3 PO SCH (15:30)
[2020-06-29] MEDS: ZINC SULFATE PO SCH ×2 (15:35→21:05)
[2020-06-29] MEDS: CALAN SR 180 MG PO SCH (15:47)
[2020-06-29] MEDS: ZESTRIL TAB 10 MG PO SCH (15:47)
[2020-06-29] MEDS: VITAMIN A PO SCH (15:48)
[2020-06-29] MEDS: ROBITUSSIN DM PO SCH ×4 (15:48→22:40)
[2020-06-29 15:53] LABS: ALBUMIN 1.5 g/dL (3.4-5.0); CALCIUM 7.5 mg/dL (8.5-10.1); COR CA(FOR HYPOALB) 9.5 mg/dL (8.5-10.1); TOTAL PROTEIN 5.5 g/dL (6.4-8.2)
[2020-06-29] MEDS: D5W 1000 ML IV 1,000 ML IV SCH (16:58)
--- NOTE | 2020-06-29 19:01 | RAD ---
HISTORYNGT PLACEMENTSTUDYKUB, x-ray one view abdomenCOMPARISONX-ray from same dayFINDINGSEnteric tube has been passed into the antrum of the stomach directed towards the duodenum.IMPRESSIONEnteric tube has now passed into the antrum of the stomach directed towards the duodenum.Electronically signed by: Ulises Bear (Jun 29, 2020 18:59:22)
[2020-06-29] MEDS ORDERED: LOPRESSOR INJ 5 MG AMP ONE (19:56)
[2020-06-29] MEDS: LOPRESSOR INJ 5 MG AMP IVP SCH (20:00)
[2020-06-29] MEDS: LOPRESSOR TAB 25 MG PO SCH ×3 (20:59→21:30)
[2020-06-29] MEDS: CATAPRES TAB 0.1 MG PO SCH (21:06)
[2020-06-29] MEDS: LIPITOR TAB 40 MG PO SCH (21:08)
[2020-06-30] MEDS: DIPRIVAN PREMIX 1 GRAM IV 1,000 MG/100 ML VIAL IV PRN ×2 (00:52→23:11)
[2020-06-30] MEDS: ASCORBIC ACID INJ MULTI-DOSE VIAL 1,500 MG in NS 50 ML IV 50 ML IV SCH ×4 (03:00→21:31)
[2020-06-30] MEDS: LOPRESSOR INJ 5 MG AMP IVP SCH ×3 (03:00→21:27)
[2020-06-30] MEDS: VERSED 100 MG in NS 100 ML IV 80 ML IV PRN (04:03)
[2020-06-30 04:38] LABS: ABG BASE EXCESS 2.2 mmol/L (-2.0-2.0)
[2020-06-30] MEDS: ZOSYN IV SCH ×3 (05:15→22:00)
[2020-06-30] MEDS: NS IV SCH ×3 (05:15→22:00)
[2020-06-30] MEDS: SPIKE MINIBAG IV SCH ×3 (05:15→22:00)
[2020-06-30] MEDS: SOLU-Medrol 125 MG VIAL IVP SCH ×3 (05:27→21:33)
[2020-06-30] MEDS: D5W 1000 ML IV 1,000 ML IV SCH ×2 (06:02→18:24)
[2020-06-30 06:07] LABS: ALBUMIN 1.5 g/dL (3.4-5.0); CALCIUM 7.3 mg/dL (8.5-10.1); CARBON DIOXIDE 27.2 mmol/L (21-32); COR CA(FOR HYPOALB) 9.3 mg/dL (8.5-10.1); CREATININE 2.47 mg/dL (0.55-1.02); TOTAL PROTEIN 5.4 g/dL (6.4-8.2)
[2020-06-30 06:10] LABS: BASOPHILS % (AUTO) 0.1 % (0.2-1.0); HEMATOCRIT 29.4 % (36.0-47.0); HEMOGLOBIN 9.1 g/dL (12.0-16.0); LYMPHOCYTES # (AUTO) 33.9 X10^3/uL (1.3-2.9); LYMPHOCYTES % (AUTO) 65.9 % (21.0-51.0); MEAN CORPUSCULAR HEMOGLOBIN 29.6 pg (27.0-34.0); MEAN CORPUSCULAR HGB CONC 30.9 g/dL (33.0-35.0); MEAN CORPUSCULAR VOLUME 95.7 fL (80.0-100.0); MEAN PLATELET VOLUME 9.8 fL (7.4-11.0); MONOCYTES # (AUTO) 0.7 x10^3/uL (0.3-0.8); MONOCYTES % (AUTO) 1.3 % (0.0-13.0); NEUTROPHILS # (AUTO) 16.8 x10^3/uL (2.2-4.8); NEUTROPHILS % (AUTO) 32.7 % (42.0-75.0); PLATELET COUNT 64 X10^3/uL (150.0-450.0); RED BLOOD COUNT 3.07 X10^6/uL (3.5-5.4); RED CELL DISTRIBUTION WIDTH 14.1 % (11.6-16.5)
[2020-06-30 06:37] LABS: BAND NEUTROPHILS % 1 % (0-10); WHITE BLOOD COUNT 51.4 X10^3/uL (3.6-10.0)
[2020-06-30 06:38] LABS: PLATELET MORPHOLOGY COMMENT NORMAL (NORMAL)
[2020-06-30 06:39] LABS: SMUDGE CELLS SUSPECT
--- NOTE | 2020-06-30 07:08 | RAD ---
HISTORYCOVID+STUDYCHEST, 1 VIEWCOMPARISONOne day prior.TECHNIQUEAP view of the chestFINDINGSPatient is rotated. ET tube in good position.NG tube courses below the visualized field of view. Right IJ central line in good position. Cardiac silhouette is altered given patient rotation.No significant change in bilateral airspace and interstitial opacities. Suspect small pleural effusions. No pneumothorax.IMPRESSIONNo significant change.Electronically signed by: Rc Betancourt (Jun 30, 2020 07:05:58)
[2020-06-30] MEDS: ELIQUIS PO SCH ×2 (08:53→21:32)
[2020-06-30] MEDS: LACRI-LUBE S.O.P. AFFEYE SCH ×2 (08:53→21:34)
[2020-06-30] MEDS: LANOXIN INJ IVP SCH (08:53)
[2020-06-30] MEDS: LASIX IVP SCH (08:54)
[2020-06-30] MEDS: LOPRESSOR TAB 25 MG PO SCH ×2 (08:54→21:00)
[2020-06-30] MEDS: ZINC SULFATE PO SCH ×2 (08:55→21:32)
[2020-06-30] MEDS: PROTONIX INJ 40 MG VIAL IVP SCH ×2 (08:55→22:00)
[2020-06-30] MEDS: THIAMINE HCL INJ IVP SCH ×2 (08:55→21:33)
[2020-06-30] MEDS: ROBITUSSIN DM PO SCH ×4 (08:55→21:32)
[2020-06-30] MEDS: VITAMIN D3 125 mcg (5,000 UNITS) PO SCH (08:56)
[2020-06-30] MEDS: VSL#3 PO SCH (08:56)
[2020-06-30] MEDS: VITAMIN A PO SCH (08:57)
[2020-06-30] MEDS: XOPENEX 1.25 MG/3 ML NEBULE NEB SCH ×4 (09:13→20:30)
[2020-06-30] MEDS: PULMICORT NEB TX 0.5 MG NEB SCH ×2 (09:13→20:30)
[2020-06-30] MEDS: ZITHROMAX TAB 250 MG PO SCH (10:00)
[2020-06-30] MEDS: PEPCID TAB 20 MG PO SCH (10:01)
[2020-06-30] MEDS: LEVOPHED INJ 8 MG in D5W 250 ML IV 242 ML IV PRN (14:00)
[2020-06-30 14:27] LABS: ALBUMIN 1.5 g/dL (3.4-5.0); CALCIUM 7.3 mg/dL (8.5-10.1); CARBON DIOXIDE 29.7 mmol/L (21-32); COR CA(FOR HYPOALB) 9.3 mg/dL (8.5-10.1); CREATININE 2.62 mg/dL (0.55-1.02); TOTAL PROTEIN 5.4 g/dL (6.4-8.2)
[2020-06-30] MEDS ORDERED: CARDIZEM INJ 125 MG VIAL ONE (14:35)
[2020-06-30] MEDS: CARDIZEM INJ 125 MG VIAL 125 MG in NS 100 ML IV 100 ML IV PRN (15:00)
[2020-06-30] MEDS: CATAPRES TAB 0.1 MG PO SCH (21:31)
[2020-06-30] MEDS: LIPITOR TAB 40 MG PO SCH (21:34)
[2020-06-30] MEDS: K-RIDER 10 MEQ/NS 100 ML 10 MEQ/100 ML BAG IV PRN (23:00)
[2020-07-01] MEDS: LOPRESSOR INJ 5 MG AMP IVP SCH ×3 (02:23→20:00)
[2020-07-01] MEDS: ASCORBIC ACID INJ MULTI-DOSE VIAL 1,500 MG in NS 50 ML IV 50 ML IV SCH ×4 (02:23→20:43)
[2020-07-01] MEDS ORDERED: BUTT CREAM (COMPOUND) ONE (03:05)
[2020-07-01 04:28] LABS: ABG BASE EXCESS 2.9 mmol/L (-2.0-2.0)
[2020-07-01 04:29] LABS: ABG HCO3 30.4 mmol/L (22-26)
[2020-07-01 04:30] LABS: ABG ALLEN TEST POS
[2020-07-01] MEDS: SPIKE MINIBAG IV SCH ×3 (05:36→21:06)
[2020-07-01] MEDS: SOLU-Medrol 125 MG VIAL IVP SCH ×3 (05:36→21:06)
[2020-07-01] MEDS: NS IV SCH ×3 (05:36→21:06)
[2020-07-01] MEDS: ZOSYN IV SCH ×3 (05:36→21:06)
[2020-07-01 05:47] LABS: BASOPHILS # (AUTO) 0.1 X10^3/uL (0.0-0.1); BASOPHILS % (AUTO) 0.2 % (0.2-1.0); HEMATOCRIT 24.9 % (36.0-47.0); HEMOGLOBIN 7.7 g/dL (12.0-16.0); LYMPHOCYTES % (AUTO) 64.9 % (21.0-51.0); MEAN CORPUSCULAR HEMOGLOBIN 29.3 pg (27.0-34.0); MEAN CORPUSCULAR VOLUME 94.6 fL (80.0-100.0); MEAN PLATELET VOLUME 9.8 fL (7.4-11.0); MONOCYTES # (AUTO) 0.6 x10^3/uL (0.3-0.8); MONOCYTES % (AUTO) 1.1 % (0.0-13.0); NEUTROPHILS # (AUTO) 19.3 x10^3/uL (2.2-4.8); NEUTROPHILS % (AUTO) 33.8 % (42.0-75.0); PLATELET COUNT 64 X10^3/uL (150.0-450.0); RED BLOOD COUNT 2.64 X10^6/uL (3.5-5.4); RED CELL DISTRIBUTION WIDTH 12.9 % (11.6-16.5)
[2020-07-01 05:50] LABS: ALBUMIN 1.5 g/dL (3.4-5.0); CALCIUM 7.2 mg/dL (8.5-10.1); CARBON DIOXIDE 26.7 mmol/L (21-32); COR CA(FOR HYPOALB) 9.2 mg/dL (8.5-10.1); CREATININE 2.6 mg/dL (0.55-1.02); TOTAL PROTEIN 5.3 g/dL (6.4-8.2)
[2020-07-01 06:20] LABS: BAND NEUTROPHILS % 2 % (0-10)
[2020-07-01 06:21] LABS: PLATELET MORPHOLOGY COMMENT NORMAL (NORMAL)
[2020-07-01 06:22] LABS: SMUDGE CELLS SUSPECT
[2020-07-01] MEDS: ELIQUIS PO SCH ×2 (08:01→20:43)
[2020-07-01] MEDS: LANOXIN INJ IVP SCH (08:01)
[2020-07-01] MEDS: LOPRESSOR TAB 25 MG PO SCH ×2 (08:06→20:44)
[2020-07-01] MEDS: PROTONIX INJ 40 MG VIAL IVP SCH ×2 (08:07→20:44)
[2020-07-01] MEDS: LACRI-LUBE S.O.P. AFFEYE SCH ×2 (08:07→20:43)
[2020-07-01] MEDS: ROBITUSSIN DM PO SCH ×4 (08:07→20:44)
[2020-07-01] MEDS: PEPCID TAB 20 MG PO SCH (08:07)
[2020-07-01] MEDS: ZITHROMAX TAB 250 MG PO SCH (08:08)
[2020-07-01] MEDS: THIAMINE HCL INJ IVP SCH ×2 (08:08→20:44)
[2020-07-01] MEDS: ZINC SULFATE PO SCH ×2 (08:08→20:44)
[2020-07-01] MEDS: VSL#3 PO SCH (08:09)
[2020-07-01] MEDS: VITAMIN A PO SCH (08:09)
[2020-07-01] MEDS: VITAMIN D3 125 mcg (5,000 UNITS) PO SCH (08:09)
[2020-07-01] MEDS: XOPENEX 1.25 MG/3 ML NEBULE NEB SCH ×4 (08:44→21:08)
[2020-07-01] MEDS: PULMICORT NEB TX 0.5 MG NEB SCH ×2 (08:44→21:08)
[2020-07-01] MEDS: D5W 1000 ML IV 1,000 ML IV SCH (09:38)
[2020-07-01] MEDS: VERSED 100 MG in NS 100 ML IV 80 ML IV PRN (09:52)
[2020-07-01] MEDS: K-RIDER 10 MEQ/NS 100 ML 10 MEQ/100 ML BAG IV PRN ×2 (11:00→12:33)
[2020-07-01] MEDS: D5W + KCL 20 MEQ/L 1,000 ML IV SCH (11:08)
[2020-07-01] MEDS: CARDIZEM INJ 125 MG VIAL 125 MG in NS 100 ML IV 100 ML IV PRN (11:44)
[2020-07-01] MEDS: DIPRIVAN PREMIX 1 GRAM IV 1,000 MG/100 ML VIAL IV PRN (11:45)
[2020-07-01 18:10] LABS: BASOPHILS % (AUTO) 0.1 % (0.2-1.0); HEMATOCRIT 25.8 % (36.0-47.0); HEMOGLOBIN 8.2 g/dL (12.0-16.0); LYMPHOCYTES # (AUTO) 35.3 X10^3/uL (1.3-2.9); LYMPHOCYTES % (AUTO) 64.3 % (21.0-51.0); MEAN CORPUSCULAR HEMOGLOBIN 29.8 pg (27.0-34.0); MEAN CORPUSCULAR HGB CONC 31.8 g/dL (33.0-35.0); MEAN CORPUSCULAR VOLUME 93.6 fL (80.0-100.0); MEAN PLATELET VOLUME 10.2 fL (7.4-11.0); MONOCYTES # (AUTO) 0.7 x10^3/uL (0.3-0.8); MONOCYTES % (AUTO) 1.3 % (0.0-13.0); NEUTROPHILS # (AUTO) 18.9 x10^3/uL (2.2-4.8); NEUTROPHILS % (AUTO) 34.3 % (42.0-75.0); PLATELET COUNT 68 X10^3/uL (150.0-450.0); RED BLOOD COUNT 2.76 X10^6/uL (3.5-5.4); RED CELL DISTRIBUTION WIDTH 13.2 % (11.6-16.5)
[2020-07-01 18:19] LABS: ALBUMIN 1.7 g/dL (3.4-5.0); CALCIUM 7.6 mg/dL (8.5-10.1); CARBON DIOXIDE 26.4 mmol/L (21-32); COR CA(FOR HYPOALB) 9.4 mg/dL (8.5-10.1); CREATININE 2.58 mg/dL (0.55-1.02); TOTAL PROTEIN 5.5 g/dL (6.4-8.2)
[2020-07-01 18:38] LABS: BAND NEUTROPHILS % 47 % (0-10)
[2020-07-01 18:39] LABS: PLATELET MORPHOLOGY COMMENT NORMAL (NORMAL)
[2020-07-01] MEDS: CATAPRES TAB 0.1 MG PO SCH (20:06)
[2020-07-01] MEDS: LIPITOR TAB 40 MG PO SCH (20:43)
[2020-07-01] MEDS: CARDIZEM TAB 30 MG PLAIN PO SCH (20:43)
[2020-07-02] MEDS: DIPRIVAN PREMIX 1 GRAM IV 1,000 MG/100 ML VIAL IV PRN ×2 (02:00→15:24)
[2020-07-02] MEDS: D5W + KCL 20 MEQ/L 1,000 ML IV SCH ×2 (03:07→12:57)
[2020-07-02] MEDS: LOPRESSOR INJ 5 MG AMP IVP SCH ×2 (03:07→11:00)
[2020-07-02] MEDS: ASCORBIC ACID INJ MULTI-DOSE VIAL 1,500 MG in NS 50 ML IV 50 ML IV SCH ×4 (03:07→20:00)
[2020-07-02] MEDS: CARDIZEM TAB 30 MG PLAIN PO SCH ×3 (05:10→21:53)
[2020-07-02] MEDS: ZOSYN IV SCH ×2 (05:11→15:22)
[2020-07-02] MEDS: SPIKE MINIBAG IV SCH ×2 (05:11→15:22)
[2020-07-02] MEDS: NS IV SCH ×2 (05:11→15:22)
[2020-07-02] MEDS: SOLU-Medrol 125 MG VIAL IVP SCH ×3 (05:11→21:54)
[2020-07-02 05:14] LABS: ABG BASE EXCESS 2.3 mmol/L (-2.0-2.0); ABG HCO3 29.1 mmol/L (22-26)
[2020-07-02 05:15] LABS: ABG ALLEN TEST POS
[2020-07-02 06:09] LABS: HEMATOCRIT 24.5 % (36.0-47.0); RED CELL DISTRIBUTION WIDTH 13.4 % (11.6-16.5)
[2020-07-02 06:14] LABS: BASOPHILS % (AUTO) 0.1 % (0.2-1.0); HEMOGLOBIN 7.8 g/dL (12.0-16.0); LYMPHOCYTES % (AUTO) 64.4 % (21.0-51.0); MEAN CORPUSCULAR HGB CONC 31.9 g/dL (33.0-35.0); MEAN CORPUSCULAR VOLUME 94.2 fL (80.0-100.0); MEAN PLATELET VOLUME 10.6 fL (7.4-11.0); MONOCYTES # (AUTO) 0.8 x10^3/uL (0.3-0.8); MONOCYTES % (AUTO) 1.4 % (0.0-13.0); NEUTROPHILS # (AUTO) 18.5 x10^3/uL (2.2-4.8); NEUTROPHILS % (AUTO) 34.1 % (42.0-75.0); PLATELET COUNT 74 X10^3/uL (150.0-450.0)
[2020-07-02 06:23] LABS: ALBUMIN 1.7 g/dL (3.4-5.0); CALCIUM 7.5 mg/dL (8.5-10.1); COR CA(FOR HYPOALB) 9.3 mg/dL (8.5-10.1); CREATININE 2.56 mg/dL (0.55-1.02); TOTAL PROTEIN 5.3 g/dL (6.4-8.2)
[2020-07-02 06:30] LABS: WHITE BLOOD COUNT 54.3 X10^3/uL (3.6-10.0)
[2020-07-02 06:31] LABS: BAND NEUTROPHILS % 5 % (0-10); SMUDGE CELLS SUSPECT
[2020-07-02 06:32] LABS: PLATELET MORPHOLOGY COMMENT NORMAL (NORMAL)
--- NOTE | 2020-07-02 06:50 | RAD ---
HISTORYCOVID, F/USTUDYCHEST, 1 [id number]/05/2021TECHNIQUEAP view of the chestFINDINGSET tube in good position. NG tube courses below the visualized field of view. Right IJ central line in good position.Cardiac and mediastinal contours are within normal limits. No significant change in bilateral airspace and interstitial opacities. Suspect small pleural effusions. No pneumothorax.IMPRESSIONNo significant change.Electronically signed by: Rc Betancourt (Jul 02, 2020 06:48:36)
[2020-07-02] MEDS: LACRI-LUBE S.O.P. AFFEYE SCH ×2 (09:00→20:02)
[2020-07-02] MEDS: ELIQUIS PO SCH ×2 (09:00→20:00)
[2020-07-02] MEDS: LOPRESSOR TAB 25 MG PO SCH ×2 (09:01→20:03)
[2020-07-02] MEDS: PROTONIX INJ 40 MG VIAL IVP SCH ×2 (09:01→20:04)
[2020-07-02] MEDS: PEPCID TAB 20 MG PO SCH (09:01)
[2020-07-02] MEDS: VITAMIN D3 125 mcg (5,000 UNITS) PO SCH (09:02)
[2020-07-02] MEDS: ROBITUSSIN DM PO SCH ×4 (09:02→20:05)
[2020-07-02] MEDS: ZITHROMAX TAB 250 MG PO SCH (09:04)
[2020-07-02] MEDS: ZINC SULFATE PO SCH ×2 (09:04→20:07)
[2020-07-02] MEDS: LANOXIN INJ IVP SCH (09:43)
[2020-07-02] MEDS: THIAMINE HCL INJ IVP SCH ×2 (09:44→20:07)
[2020-07-02] MEDS: VITAMIN A PO SCH (09:45)
[2020-07-02] MEDS: PULMICORT NEB TX 0.5 MG NEB SCH ×2 (09:45→22:13)
[2020-07-02] MEDS: VSL#3 PO SCH (09:45)
[2020-07-02] MEDS: XOPENEX 1.25 MG/3 ML NEBULE NEB SCH ×4 (09:45→22:13)
[2020-07-02] MEDS: LIPITOR TAB 40 MG PO SCH (20:02)
[2020-07-03] MEDS: D5W + KCL 20 MEQ/L 1,000 ML IV SCH ×3 (02:15→13:41)
[2020-07-03] MEDS: ASCORBIC ACID INJ MULTI-DOSE VIAL 1,500 MG in NS 50 ML IV 50 ML IV SCH ×4 (02:16→21:39)
[2020-07-03] MEDS: DIPRIVAN PREMIX 1 GRAM IV 1,000 MG/100 ML VIAL IV PRN (03:03)
[2020-07-03 05:24] LABS: ABG ALLEN TEST POS; ABG HCO3 29.7 mmol/L (22-26)
[2020-07-03] MEDS: SOLU-Medrol 125 MG VIAL IVP SCH ×3 (06:00→21:46)
[2020-07-03] MEDS: CARDIZEM TAB 30 MG PLAIN PO SCH ×3 (06:00→21:46)
[2020-07-03 06:30] LABS: BASOPHILS % (AUTO) 0.1 % (0.2-1.0); HEMATOCRIT 21.6 % (36.0-47.0); HEMOGLOBIN 7.1 g/dL (12.0-16.0); LYMPHOCYTES # (AUTO) 18.7 X10^3/uL (1.3-2.9); LYMPHOCYTES % (AUTO) 60.6 % (21.0-51.0); MEAN CORPUSCULAR HEMOGLOBIN 30.4 pg (27.0-34.0); MEAN CORPUSCULAR HGB CONC 32.6 g/dL (33.0-35.0); MEAN CORPUSCULAR VOLUME 93.1 fL (80.0-100.0); MEAN PLATELET VOLUME 10.7 fL (7.4-11.0); MONOCYTES # (AUTO) 0.5 x10^3/uL (0.3-0.8); MONOCYTES % (AUTO) 1.5 % (0.0-13.0); NEUTROPHILS # (AUTO) 11.7 x10^3/uL (2.2-4.8); NEUTROPHILS % (AUTO) 37.8 % (42.0-75.0); PLATELET COUNT 68 X10^3/uL (150.0-450.0); RED BLOOD COUNT 2.32 X10^6/uL (3.5-5.4); RED CELL DISTRIBUTION WIDTH 12.7 % (11.6-16.5)
[2020-07-03 06:36] LABS: WHITE BLOOD COUNT 30.9 X10^3/uL (3.6-10.0)
[2020-07-03 06:40] LABS: ALBUMIN 1.7 g/dL (3.4-5.0); CALCIUM 7.5 mg/dL (8.5-10.1); CARBON DIOXIDE 27.2 mmol/L (21-32); COR CA(FOR HYPOALB) 9.3 mg/dL (8.5-10.1); CREATININE 2.54 mg/dL (0.55-1.02); TOTAL PROTEIN 4.8 g/dL (6.4-8.2)
--- NOTE | 2020-07-03 07:31 | RAD ---
HISTORYCOVID PNEUMONIASTUDYCHEST, 1 VIEWCOMPARISONJanuary 7thTECHNIQUEPortable chest x-rayFINDINGSEndotracheal tube, NG tube, and right internal jugular central venous line remain adequately positioned. There is marginally improved aeration of the bilateral lungs, with persistent background ground-glass attenuation and granular interstitial opacities. More dense, focal regions of consolidation are seen within the dependent lung bases. There are no evolving pleural fluid collections. There is no evidence of free air or pneumothorax.IMPRESSIONPersistent, diffuse bilateral ground-glass attenuation, granular interstitial opacities and bibasilar consolidative opacities in the setting of an atypical pneumonia pattern. There is marginally improved aeration of the upper lung finney.Lines and support tubes remain unchanged in position..Electronically signed by: HALEIGH SANTACRUZ (Jul 03, 2020 07:31:21)
[2020-07-03 07:56] LABS: BAND NEUTROPHILS % 4 % (0-10); PLATELET MORPHOLOGY COMMENT NORMAL (NORMAL)
[2020-07-03] MEDS: PULMICORT NEB TX 0.5 MG NEB SCH ×2 (09:50→20:40)
[2020-07-03] MEDS: XOPENEX 1.25 MG/3 ML NEBULE NEB SCH ×4 (09:50→20:40)
[2020-07-03] MEDS: LACRI-LUBE S.O.P. AFFEYE SCH ×2 (09:53→21:40)
[2020-07-03] MEDS: LOPRESSOR TAB 25 MG PO SCH ×2 (09:53→21:40)
[2020-07-03] MEDS: PROTONIX INJ 40 MG VIAL IVP SCH ×2 (09:53→21:41)
[2020-07-03] MEDS: ELIQUIS PO SCH ×2 (09:53→21:39)
[2020-07-03] MEDS: VITAMIN A PO SCH (09:54)
[2020-07-03] MEDS: VITAMIN D3 125 mcg (5,000 UNITS) PO SCH (09:54)
[2020-07-03] MEDS: ROBITUSSIN DM PO SCH ×4 (09:54→21:41)
[2020-07-03] MEDS: PEPCID TAB 20 MG PO SCH (09:54)
[2020-07-03] MEDS: ZINC SULFATE PO SCH ×2 (09:54→21:39)
[2020-07-03] MEDS: VSL#3 PO SCH (09:55)
[2020-07-03] MEDS: THIAMINE HCL INJ IVP SCH ×2 (09:55→21:46)
[2020-07-03] MEDS: ZITHROMAX TAB 250 MG PO SCH (09:56)
[2020-07-03] MEDS: VERSED 100 MG in NS 100 ML IV 80 ML IV PRN (10:34)
[2020-07-03] MEDS: D5W 1000 ML IV 1,000 ML IV SCH (14:08)
[2020-07-03 15:04] LABS: BASOPHILS % (AUTO) 0.1 % (0.2-1.0); HEMATOCRIT 24.8 % (36.0-47.0); HEMOGLOBIN 7.9 g/dL (12.0-16.0); LYMPHOCYTES # (AUTO) 26.1 X10^3/uL (1.3-2.9); LYMPHOCYTES % (AUTO) 63.9 % (21.0-51.0); MEAN CORPUSCULAR HEMOGLOBIN 29.8 pg (27.0-34.0); MEAN CORPUSCULAR HGB CONC 31.8 g/dL (33.0-35.0); MEAN CORPUSCULAR VOLUME 93.6 fL (80.0-100.0); MEAN PLATELET VOLUME 10.4 fL (7.4-11.0); MONOCYTES # (AUTO) 0.7 x10^3/uL (0.3-0.8); MONOCYTES % (AUTO) 1.7 % (0.0-13.0); NEUTROPHILS % (AUTO) 34.3 % (42.0-75.0); PLATELET COUNT 90 X10^3/uL (150.0-450.0); RED BLOOD COUNT 2.65 X10^6/uL (3.5-5.4); RED CELL DISTRIBUTION WIDTH 12.9 % (11.6-16.5)
[2020-07-03 15:14] LABS: WHITE BLOOD COUNT 40.9 X10^3/uL (3.6-10.0)
[2020-07-03 15:18] LABS: PLATELET MORPHOLOGY COMMENT NORMAL (NORMAL)
[2020-07-03] MEDS: DIPRIVAN PREMIX 500 MG IV 500 MG/50 ML VIAL IV PRN ×2 (16:05→23:15)
[2020-07-03] MEDS: LIPITOR TAB 40 MG PO SCH (21:40)
[2020-07-04] MEDS: ASCORBIC ACID INJ MULTI-DOSE VIAL 1,500 MG in NS 50 ML IV 50 ML IV SCH ×4 (03:30→20:48)
[2020-07-04] MEDS: D5W 1000 ML IV 1,000 ML IV SCH ×3 (03:37→17:25)
[2020-07-04 05:05] LABS: ABG HCO3 29.7 mmol/L (22-26)
[2020-07-04 05:06] LABS: ABG ALLEN TEST POS
[2020-07-04] MEDS: CARDIZEM TAB 30 MG PLAIN PO SCH ×3 (05:41→22:30)
[2020-07-04] MEDS: SOLU-Medrol 125 MG VIAL IVP SCH ×3 (05:41→22:30)
[2020-07-04 05:42] LABS: BASOPHILS # (AUTO) 0.1 X10^3/uL (0.0-0.1); HEMATOCRIT 23.4 % (36.0-47.0); HEMOGLOBIN 7.4 g/dL (12.0-16.0); MEAN CORPUSCULAR HGB CONC 31.6 g/dL (33.0-35.0)
[2020-07-04 05:54] LABS: BASOPHILS % (AUTO) 0.1 % (0.2-1.0); LYMPHOCYTES # (AUTO) 25.7 X10^3/uL (1.3-2.9); LYMPHOCYTES % (AUTO) 64.8 % (21.0-51.0); MEAN CORPUSCULAR HEMOGLOBIN 29.6 pg (27.0-34.0); MEAN CORPUSCULAR VOLUME 93.6 fL (80.0-100.0); MEAN PLATELET VOLUME 10.7 fL (7.4-11.0); MONOCYTES # (AUTO) 0.2 x10^3/uL (0.3-0.8); MONOCYTES % (AUTO) 0.5 % (0.0-13.0); NEUTROPHILS # (AUTO) 13.7 x10^3/uL (2.2-4.8); NEUTROPHILS % (AUTO) 34.6 % (42.0-75.0); PLATELET COUNT 104 X10^3/uL (150.0-450.0); RED CELL DISTRIBUTION WIDTH 13.1 % (11.6-16.5)
[2020-07-04 06:05] LABS: WHITE BLOOD COUNT 39.7 X10^3/uL (3.6-10.0)
[2020-07-04 06:09] LABS: ALBUMIN 1.8 g/dL (3.4-5.0); CALCIUM 7.7 mg/dL (8.5-10.1); CARBON DIOXIDE 28.3 mmol/L (21-32); COR CA(FOR HYPOALB) 9.5 mg/dL (8.5-10.1); CREATININE 2.33 mg/dL (0.55-1.02)
--- NOTE | 2020-07-04 06:14 | RAD ---
Chest AP portableIndication: COVID-19 pneumoniaComparison: Previous day's radiographFINDINGSThere is no pneumothorax. Right IJ catheter tip is over the cavoatrial junction. ET tube tip is above the parisa. NG tube is directed towards the stomach. Monitor leads obscure minimal detail. Heart size is prominent. Patchy bilateral pulmonary opacities are stable without pneumothorax.IMPRESSIONStable lines and tubes. Persistent peripheral patchy pulmonary opacities of COVID-19 viral pneumonitis, similar to the prior.Electronically signed by: BRAYDEN MATHEWS (Jul 04, 2020 06:12:55)
[2020-07-04 06:45] LABS: BAND NEUTROPHILS % 1 % (0-10)
[2020-07-04 06:46] LABS: PLATELET MORPHOLOGY COMMENT NORMAL (NORMAL); SMUDGE CELLS SUSPECT
[2020-07-04] MEDS: VSL#3 PO SCH (09:28)
[2020-07-04] MEDS: ROBITUSSIN DM PO SCH ×4 (09:28→20:52)
[2020-07-04] MEDS: ZINC SULFATE PO SCH ×2 (09:28→20:53)
[2020-07-04] MEDS: LACRI-LUBE S.O.P. AFFEYE SCH ×2 (09:29→20:48)
[2020-07-04] MEDS: PEPCID TAB 20 MG PO SCH (09:29)
[2020-07-04] MEDS: VITAMIN A PO SCH (09:29)
[2020-07-04] MEDS: LOPRESSOR TAB 25 MG PO SCH ×2 (09:29→20:52)
[2020-07-04] MEDS: PROTONIX INJ 40 MG VIAL IVP SCH ×2 (09:29→20:52)
[2020-07-04] MEDS: ZITHROMAX TAB 250 MG PO SCH (09:30)
[2020-07-04] MEDS: VITAMIN D3 125 mcg (5,000 UNITS) PO SCH (09:30)
[2020-07-04] MEDS: ELIQUIS PO SCH ×2 (09:30→20:48)
[2020-07-04] MEDS: XOPENEX 1.25 MG/3 ML NEBULE NEB SCH ×4 (09:35→20:41)
[2020-07-04] MEDS: PULMICORT NEB TX 0.5 MG NEB SCH ×2 (09:35→20:40)
[2020-07-04] MEDS: THIAMINE HCL INJ IVP SCH ×2 (11:04→20:53)
[2020-07-04] MEDS ORDERED: APRESOLINE INJ 20 MG VIAL IVP PRN (12:44)
--- NOTE | 2020-07-04 12:44 | PCM.PROG ---
Progress Note Progress Note for Day of Date of Exam: 07/04/20 Subjective Subjective: Patient seen at bedside, no overnight events. Patient is being treated for acute respiratory failure due to COVID-19 pneumonia. She is currently on mechanical ventilation. She also has a NGT. Vent settings: FiO2 35% PEEP 10 RR 22 sats in low 90s CXR: suggestive of COVID 19 viral pneumonitis Labs: - ABG 7.40/48/80/29 96% on FiO2 40% - WBC: 39.7 Hgb 7.4 BUn/Cr: 61/2.33 - Last FOBT (-) Plan: wean off vent as tolerated, continue IV abx, solumedrol and eliquis. Add hydralazine prn for elevated BP. Continue Diltiazem and metoprolol. Hgb 7.4, monitor closely, transfuse if < 7. Monitor AM labs, ABG and imaging. Patient remains in a critical state. Critical care time spent for clinical assessment, physical examination, reviewing labs/imaging and documentation greater than 75 mins. Past Medical Family Social History Past Med/Fam/Surg Hx: No changes since H&P Allergies: Allergies No Known Drug Allergies Allergy (Verified 06/15/20 11:35) Review of Systems ROS: No change since H&P Vital Signs and I&O's Vital Signs: Temperature 97.8 F Pulse Rate [Right] 82 Pulse Rate 90 Respiratory Rate 26 Blood Pressure [Right Arm] 190/90 Blood Pressure [Left Arm] 176/82 Blood Pressure 134/68 O2 Sat by Pulse Oximetry 94 Intake and Output: Intake & Output 07/01/20 07/02/20 07/03/20 07/04/20 23:59 23:59 23:59 23:59 Intake Total 5153 / 5153 3894 / 3894 3137 / 3137 980 / 980 Output Total 2500 / 2500 875 / 875 1750 / 1750 500 / 500 Balance 2653 / 2653 3019 / 3019 1387 / 1387 480 / 480 Physical Exam Oriented: Unable to test Ear: Normal Nose: Normal Throat: Dry Respiratory: Generalized, Diminished and Rhonchi Cardiovascular: Normal Auscultation: Bowel Sounds: Normal Tenderness: Normal Skin: Decreased Turgur Musculoskeletal: Back:Lumbar Psychiatric: Normal Mood Description: Calm Speech Pattern: Artificially Ventilated Laboratory and Diagnostics Result Diagrams: 07/04/20 04:40 07/04/20 04:40 Labs: 06/25/20 19:45 Blood Blood Culture - Final 06/25/20 19:30 Blood Blood Culture - Final 06/28/20 04:26 Sputum - Endotracheal Wash Sputum Culture - Final 06/28/20 04:26 Sputum - Endotracheal Wash - Final 06/17/20 17:08 Blood Blood Culture - Final 06/17/20 16:33 Blood Blood Culture - Final 06/17/20 18:25 Sputum - Expectorated Sputum Sputum Culture - Final 06/17/20 18:25 Sputum - Expectorated Sputum - Final Laboratory WBC 39.7 X10^3/uL (3.6-10.0) H* 07/04/20 04:40 RBC 2.50 X10^6/uL (3.5-5.4) L 07/04/20 04:40 Hgb 7.4 g/dL (12.0-16.0) L 07/04/20 04:40 Hct 23.4 % (36.0-47.0) L 07/04/20 04:40 MCV 93.6 fL (80.0-100.0) 07/04/20 04:40 MCH 29.6 pg (27.0-34.0) 07/04/20 04:40 MCHC 31.6 g/dL (33.0-35.0) L 07/04/20 04:40 RDW 13.1 % (11.6-16.5) 07/04/20 04:40 Plt Count 104 X10^3/uL (150.0-450.0) L 07/04/20 04:40 Plt Count Comment Decreased (ADEQUATE) A 07/04/20 04:40 MPV 10.7 fL (7.4-11.0) 07/04/20 04:40 Neut % (Auto) 34.6 % (42.0-75.0) L 07/04/20 04:40 Lymph % (Auto) 64.8 % (21.0-51.0) H 07/04/20 04:40 [place] % (Auto) 0.5 % (0.0-13.0) 07/04/20 04:40 Eos % (Auto) 0.0 % (0.9-2.9) L 07/04/20 04:40 Baso % (Auto) 0.1 % (0.2-1.0) L 07/04/20 04:40 Neut # (Auto) 13.7 x10^3/uL (2.2-4.8) H 07/04/20 04:40 Lymph # (Auto) 25.7 X10^3/uL (1.3-2.9) H 07/04/20 04:40 [place] # (Auto) 0.2 x10^3/uL (0.3-0.8) L 07/04/20 04:40 Eos # (Auto) 0.0 x10^3/uL (0.0-0.2) 07/04/20 04:40 Baso # (Auto) 0.1 X10^3/uL (0.0-0.1) 07/04/20 04:40 Absolute Nucleated RBC 0.2 /100WBC 07/04/20 04:40 Total Counted 100 07/04/20 04:40 Neutrophils % (Manual) 47 % (39-76) 07/04/20 04:40 Band Neutrophils % 1 % (0-10) 07/04/20 04:40 Lymphocytes % (Manual) 52 % (13-43) H 07/04/20 04:40 Monocytes % (Manual) 2 % (4-9) L 07/03/20 14:45 Atypical Lymphocytes Occaisonal 07/02/20 04:16 Smudge Cells Suspect 07/04/20 04:40 Plt Morphology Comment Normal (NORMAL) 07/04/20 04:40 RBC Morphology Normal (NORMAL) 07/04/20 04:40 D-Dimer 1.71 ug/ml (0.0-0.57) H* 06/18/20 05:46 Sample Site Rr 07/04/20 05:00 ABG pH 7.400 (7.35-7.45) 07/04/20 05:00 ABG pCO2 48.0 mmHg (35.0-45.0) H 07/04/20 05:00 ABG pO2 80.0 mmHg (80.0-100.0) 07/04/20 05:00 ABG HCO3 29.7 mmol/L (22-26) H 07/04/20 05:00 ABG O2 Saturation 96.0 % (90-100) 07/04/20 05:00 ABG Base Excess 4.0 mmol/L (-2.0-2.0) H 07/04/20 05:00 Ki Test Pos 07/04/20 05:00 A-a Gradient 145.0 mmHg 07/04/20 05:00 FiO2 40.0 07/04/20 05:00 Blood Gas Comments Emily well ae 07/04/20 05:00 Sodium 138 mmol/L (136-145) 07/04/20 04:40 Corrected Sodium 140 mmol/L (136-145) 07/04/20 04:40 Potassium 4.3 mmol/L (3.5-5.1) 07/04/20 04:40 Chloride 102 mmol/L (98-107) 07/04/20 04:40 Carbon Dioxide 28.3 mmol/L (21-32) 07/04/20 04:40 BUN 61 mg/dL (7-18) H 07/04/20 04:40 Creatinine 2.33 mg/dL (0.55-1.02) H 07/04/20 04:40 Est GFR (MDRD) Af Amer 26 (>60) L 07/04/20 04:40 Est GFR (MDRD) Non-Af 21 (>60) L 07/04/20 04:40 Glucose 180 mg/dL (65-99) H 07/04/20 04:40 Calcium 7.7 mg/dL (8.5-10.1) L 07/04/20 04:40 Corrected Calcium 9.5 mg/dL (8.5-10.1) 07/04/20 04:40 Magnesium 2.2 mg/dL (1.7-2.9) 06/29/20 04:35 Ferritin 593 ng/mL (8-252) H 06/23/20 05:20 Total Bilirubin 0.30 mg/dL (0.2-1.0) 07/04/20 04:40 AST 57 Units/L (15-37) H 07/04/20 04:40 ALT 73 Units/L (12-78) 07/04/20 04:40 Alkaline Phosphatase 210 Units/L (46-116) H 07/04/20 04:40 Creatine Kinase 94 Units/L (26-192) 06/26/20 05:15 CK-MB (CK-2) 5.9 ng/mL (0-4.0) H* 06/26/20 05:15 CK/CKMB % Calc 6.3 % (<4) 06/26/20 05:15 Troponin I 0.90 ng/mL (0-1.5) 06/26/20 05:15 C-Reactive Protein 217.80 mg/L (0-3.0) H 06/25/20 06:00 Total Protein 5.0 g/dL (6.4-8.2) L 07/04/20 04:40 Albumin 1.8 g/dL (3.4-5.0) L 07/04/20 04:40 Globulin 3.2 g/dL (2.5-4.5) 07/04/20 04:40 Albumin/Globulin Ratio 0.6 Ratio (1.1-2.1) L 07/04/20 04:40 Specimen Type Catherized urine 06/25/20 02:50 Urine Color Pale yellow (YELLOW) 06/25/20 02:50 Urine Appearance Clear (CLEAR) 06/25/20 02:50 Urine pH 5.0 (5.0 - 8.0) 06/25/20 02:50 Ur Specific [place] 1.020 (1.000-1.030) 06/25/20 02:50 Urine Protein 2+ (NEGATIVE) 06/25/20 02:50 Urine Glucose (UA) Negative (NEGATIVE) 06/25/20 02:50 Urine Ketones 4+ (NEGATIVE) 06/25/20 02:50 Urine Occult Blood Negative (NEGATIVE) 06/25/20 02:50 Urine Nitrite Negative (NEGATIVE) 06/25/20 02:50 Urine Bilirubin Negative (NEGATIVE) 06/25/20 02:50 Urine Urobilinogen Normal (NORMAL) 06/25/20 02:50 Ur Leukocyte Esterase Negative (NEGATIVE) 06/25/20 02:50 Urine RBC None seen /HPF (0-3) 06/25/20 02:50 Urine WBC None seen /HPF (0-5) 06/25/20 02:50 Ur Squamous Epith Cells Rare /HPF (NEGATIVE) 06/25/20 02:50 Amorphous Sediment 2+ /HPF (NEGATIVE) 06/18/20 04:24 Urine Bacteria Negative /HPF (NEGATIVE) 06/25/20 02:50 Ur Culture Indicated? No/not indicated 06/25/20 02:50 Stool Description 40g unformed brown 07/03/20 06:00 Stl Occult Blood (IFOB) Negative (NEGATIVE) 07/03/20 06:00 Digoxin 0.68 ng/mL (0.9-2) L 06/30/20 05:07 SARS CoV-2 RNA Rapid ANSON Cancelled 06/17/20 14:10 Blood Type O POSITIVE 06/21/20 14:20 Plan (1) Pneumonia due to COVID-19 virus: Status: Acute (2) Acute respiratory failure with hypoxia: Status: Acute (3) On mechanically assisted ventilation: Status: Acute (4) Weakness: Status: Acute (5) Hypokalemia: Status: Acute (6) Anemia: Status: Acute Qualifiers: Anemia type: unspecified type Qualified Code(s): D64.9 - Anemia, unspecified (7) COVID-19 virus infection: Status: Acute (8) HTN (hypertension): Status: Acute Qualifiers: Hypertension type: unspecified Qualified Code(s): I10 - Essential (primary) hypertension (9) CLL (chronic lymphocytic leukemia): Status: Acute (10) Atrial fibrillation with rapid ventricular response: Status: Acute (11) AIDA (acute kidney injury): Status: Acute
[2020-07-04] MEDS: DIPRIVAN PREMIX 500 MG IV 500 MG/50 ML VIAL IV PRN ×2 (13:00→19:30)
[2020-07-04] MEDS: VERSED 100 MG in NS 100 ML IV 80 ML IV PRN (14:36)
[2020-07-04] MEDS: XANAX PO PRN ×2 (15:32→22:36)
[2020-07-04] MEDS ORDERED: NORMODYNE INJ 20 MG VIAL IVP ONE (16:12)
[2020-07-04] MEDS: LIPITOR TAB 40 MG PO SCH (20:51)
[2020-07-05] MEDS: DIPRIVAN PREMIX 500 MG IV 500 MG/50 ML VIAL IV PRN ×4 (01:30→20:49)
[2020-07-05] MEDS: ASCORBIC ACID INJ MULTI-DOSE VIAL 1,500 MG in NS 50 ML IV 50 ML IV SCH ×4 (03:47→20:41)
[2020-07-05 04:54] LABS: ABG ALLEN TEST POS; ABG BASE EXCESS 6.6 mmol/L (-2.0-2.0); ABG HCO3 31.3 mmol/L (22-26)
[2020-07-05 05:54] LABS: BASOPHILS % (AUTO) 0.1 % (0.2-1.0); EOSINOPHILS # (AUTO) 0.2 x10^3/uL (0.0-0.2); EOSINOPHILS % (AUTO) 0.5 % (0.9-2.9); HEMATOCRIT 22.1 % (36.0-47.0); HEMOGLOBIN 7.1 g/dL (12.0-16.0); LYMPHOCYTES # (AUTO) 23.8 X10^3/uL (1.3-2.9); MEAN CORPUSCULAR HEMOGLOBIN 29.7 pg (27.0-34.0); MEAN CORPUSCULAR HGB CONC 31.8 g/dL (33.0-35.0); MEAN CORPUSCULAR VOLUME 93.2 fL (80.0-100.0); MEAN PLATELET VOLUME 10.9 fL (7.4-11.0); MONOCYTES # (AUTO) 0.2 x10^3/uL (0.3-0.8); MONOCYTES % (AUTO) 0.5 % (0.0-13.0); NEUTROPHILS # (AUTO) 14.1 x10^3/uL (2.2-4.8); NEUTROPHILS % (AUTO) 36.9 % (42.0-75.0); PLATELET COUNT 134 X10^3/uL (150.0-450.0); RED BLOOD COUNT 2.38 X10^6/uL (3.5-5.4)
[2020-07-05] MEDS: D5W 1000 ML IV 1,000 ML IV SCH ×2 (06:00→20:38)
[2020-07-05 06:04] LABS: WHITE BLOOD COUNT 38.3 X10^3/uL (3.6-10.0)
[2020-07-05 06:08] LABS: ALBUMIN 1.7 g/dL (3.4-5.0); CALCIUM 7.8 mg/dL (8.5-10.1); COR CA(FOR HYPOALB) 9.6 mg/dL (8.5-10.1); CREATININE 2.24 mg/dL (0.55-1.02); TOTAL PROTEIN 4.7 g/dL (6.4-8.2)
[2020-07-05 06:22] LABS: PLATELET MORPHOLOGY COMMENT NORMAL (NORMAL); SMUDGE CELLS 3+
--- NOTE | 2020-07-05 06:26 | RAD ---
HISTORYcovidSTUDYPortable AP [id number]/2021FINDINGSThere is no change in heart size or contour, or in position of support lines. Endotracheal tube remains in mid trachea. Bilateral diffuse pulmonary infiltrates are again noted with little definite change. There may be slight progression in the left lower lobe but this is equivocal. No pneumothorax or pleural fluid is demonstrated.IMPRESSIONPersistent bilateral infiltrates consistent with pneumonia. There is suggestion of slight progression of this process in the left lower lung since 1 day earlier. See above.Electronically signed by: RONALD ESTRELLA (Jul 05, 2020 06:24:47)
[2020-07-05] MEDS: CARDIZEM TAB 30 MG PLAIN PO SCH ×3 (06:32→21:00)
[2020-07-05] MEDS: SOLU-Medrol 125 MG VIAL IVP SCH ×3 (06:33→21:00)
[2020-07-05] MEDS: PULMICORT NEB TX 0.5 MG NEB SCH ×2 (08:32→21:12)
[2020-07-05] MEDS: XOPENEX 1.25 MG/3 ML NEBULE NEB SCH ×4 (08:32→21:12)
[2020-07-05] MEDS: LACRI-LUBE S.O.P. AFFEYE SCH ×2 (09:32→20:39)
[2020-07-05] MEDS: PROTONIX INJ 40 MG VIAL IVP SCH ×2 (09:36→20:39)
[2020-07-05] MEDS: THIAMINE HCL INJ IVP SCH ×2 (09:37→20:38)
[2020-07-05] MEDS: VSL#3 PO SCH (09:37)
[2020-07-05] MEDS: VITAMIN A PO SCH (09:40)
[2020-07-05] MEDS: ZITHROMAX TAB 250 MG PO SCH (09:40)
[2020-07-05] MEDS: ZINC SULFATE PO SCH ×2 (09:40→20:38)
[2020-07-05] MEDS: LOPRESSOR TAB 25 MG PO SCH ×2 (09:41→20:40)
[2020-07-05] MEDS: ELIQUIS PO SCH ×2 (09:41→20:40)
[2020-07-05] MEDS: VITAMIN D3 125 mcg (5,000 UNITS) PO SCH (09:41)
[2020-07-05] MEDS: ROBITUSSIN DM PO SCH ×4 (09:41→20:39)
--- NOTE | 2020-07-05 11:08 | PCM.PROG ---
Progress Note Progress Note for Day of Date of Exam: 07/05/20 Subjective Subjective: Patient seen at bedside, no overnight events. Patient is being treated for acute respiratory failure due to COVID-19 pneumonia. She is currently on mechanical ventilation. She also has a NGT. Patient was agitated and restless last night, did received a dose of Xanax. Her HR and BP did go up yesterday evening and sats 89%. She received a dose of Labetalol IV. Patient's FiO2 was increased back to 40% last night. Her sats have remained above 90%. Vent settings: FiO2 40PEEP 10 RR 22 sats in low 90s CXR: persistent bilateral infiltrates Labs: - ABG 7.46/44/69/31 - WBC: 38.3 Hgb 7.1 BUN/Cr: 69/2.24 Plan: wean off vent as tolerated, continue IV abx, solumedrol and eliquis. Hydralazine prn for elevated BP. Continue Diltiazem and metoprolol. Hgb 7.1, will transfuse one unit of PRBCs. Monitor AM labs, ABG and imaging. Patient remains in a critical state. Critical care time spent for clinical assessment, physical examination, reviewing labs/imaging, decision making and documentation greater than 75 mins. Past Medical Family Social History Past Med/Fam/Surg Hx: No changes since H&P Allergies: Allergies No Known Drug Allergies Allergy (Verified 06/15/20 11:35) Review of Systems ROS: No change since H&P Vital Signs and I&O's Vital Signs: Temperature 98.2 F Pulse Rate [Right] 86 Pulse Rate 95 Respiratory Rate 28 Blood Pressure [Right Arm] 161/77 Blood Pressure [Left Arm] 176/82 Blood Pressure 134/68 O2 Sat by Pulse Oximetry 95 Intake and Output: Intake & Output 07/02/20 07/03/20 07/04/20 07/05/20 23:59 23:59 23:59 23:59 Intake Total 3894 / 3894 3877 / 3877 3926 / 3926 1036 / 1036 Output Total 875 / 875 1750 / 1750 2075 / 2075 500 / 500 Balance 3019 / 3019 2127 / 2127 1851 / 1851 536 / 536 Physical Exam Oriented: Unable to test Eyes: Normal Ear: Normal Nose: Normal Throat: Dry Respiratory: Generalized, Diminished and Rhonchi Cardiovascular: Normal Auscultation: Bowel Sounds: Normal Tenderness: Normal Skin: Decreased Turgur Musculoskeletal: Back:Lumbar Psychiatric: Normal Mood Description: Calm Affect: Normal Speech Pattern: Artificially Ventilated Laboratory and Diagnostics Result Diagrams: 07/05/20 04:30 07/05/20 04:30 Labs: 06/25/20 19:45 Blood Blood Culture - Final 06/25/20 19:30 Blood Blood Culture - Final 06/28/20 04:26 Sputum - Endotracheal Wash Sputum Culture - Final 06/28/20 04:26 Sputum - Endotracheal Wash - Final 06/17/20 17:08 Blood Blood Culture - Final 06/17/20 16:33 Blood Blood Culture - Final 06/17/20 18:25 Sputum - Expectorated Sputum Sputum Culture - Final 06/17/20 18:25 Sputum - Expectorated Sputum - Final Laboratory WBC 38.3 X10^3/uL (3.6-10.0) H* 07/05/20 04:30 RBC 2.38 X10^6/uL (3.5-5.4) L 07/05/20 04:30 Hgb 7.1 g/dL (12.0-16.0) L 07/05/20 04:30 Hct 22.1 % (36.0-47.0) L 07/05/20 04:30 MCV 93.2 fL (80.0-100.0) 07/05/20 04:30 MCH 29.7 pg (27.0-34.0) 07/05/20 04:30 MCHC 31.8 g/dL (33.0-35.0) L 07/05/20 04:30 RDW 13.0 % (11.6-16.5) 07/05/20 04:30 Plt Count 134 X10^3/uL (150.0-450.0) L 07/05/20 04:30 Plt Count Comment Decreased (ADEQUATE) A 07/05/20 04:30 MPV 10.9 fL (7.4-11.0) 07/05/20 04:30 Neut % (Auto) 36.9 % (42.0-75.0) L 07/05/20 04:30 Lymph % (Auto) 62.0 % (21.0-51.0) H 07/05/20 04:30 [place] % (Auto) 0.5 % (0.0-13.0) 07/05/20 04:30 Eos % (Auto) 0.5 % (0.9-2.9) L 07/05/20 04:30 Baso % (Auto) 0.1 % (0.2-1.0) L 07/05/20 04:30 Neut # (Auto) 14.1 x10^3/uL (2.2-4.8) H 07/05/20 04:30 Lymph # (Auto) 23.8 X10^3/uL (1.3-2.9) H 07/05/20 04:30 [place] # (Auto) 0.2 x10^3/uL (0.3-0.8) L 07/05/20 04:30 Eos # (Auto) 0.2 x10^3/uL (0.0-0.2) 07/05/20 04:30 Baso # (Auto) 0.0 X10^3/uL (0.0-0.1) 07/05/20 04:30 Absolute Nucleated RBC 0.0 /100WBC 07/05/20 04:30 Total Counted 100 07/05/20 04:30 Neutrophils % (Manual) 39 % (39-76) 07/05/20 04:30 Band Neutrophils % 1 % (0-10) 07/04/20 04:40 Lymphocytes % (Manual) 61 % (13-43) H 07/05/20 04:30 Monocytes % (Manual) 2 % (4-9) L 07/03/20 14:45 Atypical Lymphocytes Occaisonal 07/02/20 04:16 Smudge Cells 3+ A 07/05/20 04:30 Plt Morphology Comment Normal (NORMAL) 07/05/20 04:30 RBC Morphology Normal (NORMAL) 07/05/20 04:30 D-Dimer 1.71 ug/ml (0.0-0.57) H* 06/18/20 05:46 Sample Site Lr 07/05/20 05:00 ABG pH 7.460 (7.35-7.45) H 07/05/20 05:00 ABG pCO2 44.0 mmHg (35.0-45.0) 07/05/20 05:00 ABG pO2 69.0 mmHg (80.0-100.0) L 07/05/20 05:00 ABG HCO3 31.3 mmol/L (22-26) H* 07/05/20 05:00 ABG O2 Saturation 95.0 % (90-100) 07/05/20 05:00 ABG Base Excess 6.6 mmol/L (-2.0-2.0) H 07/05/20 05:00 Ki Test Pos 07/05/20 05:00 A-a Gradient 161.0 mmHg 07/05/20 05:00 FiO2 40.0 07/05/20 05:00 Blood Gas Comments Emily well sw 07/05/20 05:00 Sodium 139 mmol/L (136-145) 07/05/20 04:30 Corrected Sodium 140 mmol/L (136-145) 07/05/20 04:30 Potassium 4.5 mmol/L (3.5-5.1) 07/05/20 04:30 Chloride 102 mmol/L (98-107) 07/05/20 04:30 Carbon Dioxide 27.0 mmol/L (21-32) 07/05/20 04:30 BUN 69 mg/dL (7-18) H 07/05/20 04:30 Creatinine 2.24 mg/dL (0.55-1.02) H 07/05/20 04:30 Est GFR (MDRD) Af Amer 27 (>60) L 07/05/20 04:30 Est GFR (MDRD) Non-Af 22 (>60) L 07/05/20 04:30 Glucose 150 mg/dL (65-99) H 07/05/20 04:30 Calcium 7.8 mg/dL (8.5-10.1) L 07/05/20 04:30 Corrected Calcium 9.6 mg/dL (8.5-10.1) 07/05/20 04:30 Magnesium 2.2 mg/dL (1.7-2.9) 06/29/20 04:35 Ferritin 593 ng/mL (8-252) H 06/23/20 05:20 Total Bilirubin 0.30 mg/dL (0.2-1.0) 07/05/20 04:30 AST 48 Units/L (15-37) H 07/05/20 04:30 ALT 97 Units/L (12-78) H 07/05/20 04:30 Alkaline Phosphatase 170 Units/L (46-116) H 07/05/20 04:30 Creatine Kinase 94 Units/L (26-192) 06/26/20 05:15 CK-MB (CK-2) 5.9 ng/mL (0-4.0) H* 06/26/20 05:15 CK/CKMB % Calc 6.3 % (<4) 06/26/20 05:15 Troponin I 0.90 ng/mL (0-1.5) 06/26/20 05:15 C-Reactive Protein 217.80 mg/L (0-3.0) H 06/25/20 06:00 Total Protein 4.7 g/dL (6.4-8.2) L 07/05/20 04:30 Albumin 1.7 g/dL (3.4-5.0) L 07/05/20 04:30 Globulin 3.0 g/dL (2.5-4.5) 07/05/20 04:30 Albumin/Globulin Ratio 0.6 Ratio (1.1-2.1) L 07/05/20 04:30 Specimen Type Catherized urine 06/25/20 02:50 Urine Color Pale yellow (YELLOW) 06/25/20 02:50 Urine Appearance Clear (CLEAR) 06/25/20 02:50 Urine pH 5.0 (5.0 - 8.0) 06/25/20 02:50 Ur Specific [place] 1.020 (1.000-1.030) 06/25/20 02:50 Urine Protein 2+ (NEGATIVE) 06/25/20 02:50 Urine Glucose (UA) Negative (NEGATIVE) 06/25/20 02:50 Urine Ketones 4+ (NEGATIVE) 06/25/20 02:50 Urine Occult Blood Negative (NEGATIVE) 06/25/20 02:50 Urine Nitrite Negative (NEGATIVE) 06/25/20 02:50 Urine Bilirubin Negative (NEGATIVE) 06/25/20 02:50 Urine Urobilinogen Normal (NORMAL) 06/25/20 02:50 Ur Leukocyte Esterase Negative (NEGATIVE) 06/25/20 02:50 Urine RBC None seen /HPF (0-3) 06/25/20 02:50 Urine WBC None seen /HPF (0-5) 06/25/20 02:50 Ur Squamous Epith Cells Rare /HPF (NEGATIVE) 06/25/20 02:50 Amorphous Sediment 2+ /HPF (NEGATIVE) 06/18/20 04:24 Urine Bacteria Negative /HPF (NEGATIVE) 06/25/20 02:50 Ur Culture Indicated? No/not indicated 06/25/20 02:50 Stool Description 40g unformed brown 07/03/20 06:00 Stl Occult Blood (IFOB) Negative (NEGATIVE) 07/03/20 06:00 Digoxin 0.68 ng/mL (0.9-2) L 06/30/20 05:07 SARS CoV-2 RNA Rapid ANSON Cancelled 06/17/20 14:10 Blood Type O POSITIVE 07/05/20 09:27 Antibody Screen Negative 07/05/20 09:27 Plan (1) Pneumonia due to COVID-19 virus: Status: Acute (2) Acute respiratory failure with hypoxia: Status: Acute (3) On mechanically assisted ventilation: Status: Acute (4) Weakness: Status: Acute (5) Hypokalemia: Status: Acute (6) Anemia: Status: Acute Qualifiers: Anemia type: unspecified type Qualified Code(s): D64.9 - Anemia, unspecified (7) COVID-19 virus infection: Status: Acute (8) HTN (hypertension): Status: Acute Qualifiers: Hypertension type: unspecified Qualified Code(s): I10 - Essential (primary) hypertension (9) CLL (chronic lymphocytic leukemia): Status: Acute (10) Atrial fibrillation with rapid ventricular response: Status: Acute (11) AIDA (acute kidney injury): Status: Acute
[2020-07-05] MEDS: VERSED 100 MG in NS 100 ML IV 80 ML IV PRN (14:19)
[2020-07-05] MEDS: LIPITOR TAB 40 MG PO SCH (20:40)
[2020-07-06] MEDS ORDERED: DIPRIVAN PREMIX 1 GRAM IV 1,000 MG/100 ML VIAL ONE (01:03)
[2020-07-06] MEDS: ASCORBIC ACID INJ MULTI-DOSE VIAL 1,500 MG in NS 50 ML IV 50 ML IV SCH ×4 (04:00→20:10)
[2020-07-06 04:56] LABS: HEMATOCRIT 25.2 % (36.0-47.0); MEAN CORPUSCULAR HEMOGLOBIN 29.3 pg (27.0-34.0); MEAN CORPUSCULAR HGB CONC 31.7 g/dL (33.0-35.0); MEAN PLATELET VOLUME 10.7 fL (7.4-11.0); MONOCYTES # (AUTO) 0.4 x10^3/uL (0.3-0.8)
[2020-07-06 04:59] LABS: BASOPHILS % (AUTO) 0.1 % (0.2-1.0); LYMPHOCYTES # (AUTO) 23.3 X10^3/uL (1.3-2.9); LYMPHOCYTES % (AUTO) 61.7 % (21.0-51.0); MEAN CORPUSCULAR VOLUME 92.5 fL (80.0-100.0); MONOCYTES % (AUTO) 1.1 % (0.0-13.0); NEUTROPHILS % (AUTO) 37.1 % (42.0-75.0); PLATELET COUNT 143 X10^3/uL (150.0-450.0); RED BLOOD COUNT 2.72 X10^6/uL (3.5-5.4); RED CELL DISTRIBUTION WIDTH 13.6 % (11.6-16.5)
[2020-07-06 05:01] LABS: CALCIUM 7.7 mg/dL (8.5-10.1); CARBON DIOXIDE 26.8 mmol/L (21-32); CREATININE 2.35 mg/dL (0.55-1.02)
[2020-07-06 05:03] LABS: WHITE BLOOD COUNT 37.8 X10^3/uL (3.6-10.0)
[2020-07-06] MEDS: SOLU-Medrol 125 MG VIAL IVP SCH ×3 (05:10→21:18)
[2020-07-06] MEDS: CARDIZEM TAB 30 MG PLAIN PO SCH ×4 (05:10→22:00)
[2020-07-06 05:21] LABS: SMUDGE CELLS 3+
[2020-07-06 05:22] LABS: PLATELET MORPHOLOGY COMMENT NORMAL (NORMAL)
[2020-07-06 05:31] LABS: ABG ALLEN TEST POS; ABG BASE EXCESS 5.8 mmol/L (-2.0-2.0); ABG HCO3 29.8 mmol/L (22-26)
[2020-07-06] MEDS: D5W 1000 ML IV 1,000 ML IV SCH ×3 (08:22→21:00)
[2020-07-06] MEDS: PULMICORT NEB TX 0.5 MG NEB SCH ×2 (08:43→20:41)
[2020-07-06] MEDS: XOPENEX 1.25 MG/3 ML NEBULE NEB SCH ×4 (08:43→21:00)
[2020-07-06] MEDS: VITAMIN A PO SCH (08:48)
[2020-07-06] MEDS: LACRI-LUBE S.O.P. AFFEYE SCH ×2 (08:48→20:11)
[2020-07-06] MEDS: ELIQUIS PO SCH ×2 (08:48→20:08)
[2020-07-06] MEDS: PROTONIX INJ 40 MG VIAL IVP SCH ×2 (08:49→20:11)
[2020-07-06] MEDS: VSL#3 PO SCH (08:49)
[2020-07-06] MEDS: VITAMIN D3 125 mcg (5,000 UNITS) PO SCH (08:49)
[2020-07-06] MEDS: ZINC SULFATE PO SCH ×2 (08:49→20:08)
[2020-07-06] MEDS: LOPRESSOR TAB 25 MG PO SCH ×2 (08:50→20:11)
[2020-07-06] MEDS: ZITHROMAX TAB 250 MG PO SCH (08:50)
[2020-07-06] MEDS: ROBITUSSIN DM PO SCH ×4 (08:51→20:11)
[2020-07-06] MEDS: THIAMINE HCL INJ IVP SCH ×2 (08:52→20:10)
[2020-07-06] MEDS: DIPRIVAN PREMIX 500 MG IV 500 MG/50 ML VIAL IV PRN ×2 (14:28→20:08)
[2020-07-06] MEDS: VERSED 100 MG in NS 100 ML IV 80 ML IV PRN (15:50)
[2020-07-06] MEDS: LIPITOR TAB 40 MG PO SCH (20:08)
[2020-07-07] MEDS: ASCORBIC ACID INJ MULTI-DOSE VIAL 1,500 MG in NS 50 ML IV 50 ML IV SCH ×4 (02:49→20:35)
[2020-07-07] MEDS: SOLU-Medrol 125 MG VIAL IVP SCH ×3 (05:11→22:00)
[2020-07-07] MEDS: CARDIZEM TAB 30 MG PLAIN PO SCH ×2 (05:11→13:26)
[2020-07-07 05:31] LABS: ABG ALLEN TEST POS; ABG BASE EXCESS 4.7 mmol/L (-2.0-2.0); ABG HCO3 29.2 mmol/L (22-26)
--- NOTE | 2020-07-07 06:20 | RAD ---
HISTORYFollow-up COVID-19STUDYChest AP [id number]/10/2021FINDINGSPatient is rotated to the left. There is an endotracheal tube abo ve the parisa. There is a nasogastric tube coursing below the left hemidiaphragm. Its tip is not visi ble. There is a right IJ line in good position. Heart is within normal limits in size. Bilateral inte rstitial and ground-glass infiltrates are unchanged. There is some skin fold artifact projected over the right maddy thorax. No pleural effusions are identified. Bony thorax is unremarkable.IMPRESSIONExa mination is somewhat limited by leftward rotationNo definite significant change when compared with th e prior examination.Electronically signed by: YAZAN MARIE (Jul 07, 2020 06:18:10)
[2020-07-07 06:23] LABS: HEMOGLOBIN 8.2 g/dL (12.0-16.0)
[2020-07-07 06:27] LABS: BASOPHILS % (AUTO) 0 % (0.2-1.0); EOSINOPHILS # (AUTO) 0.1 x10^3/uL (0.0-0.2); EOSINOPHILS % (AUTO) 0.2 % (0.9-2.9); HEMATOCRIT 24.7 % (36.0-47.0); LYMPHOCYTES # (AUTO) 22.8 X10^3/uL (1.3-2.9); LYMPHOCYTES % (AUTO) 56.8 % (21.0-51.0); MEAN CORPUSCULAR HEMOGLOBIN 30.6 pg (27.0-34.0); MEAN CORPUSCULAR HGB CONC 33.3 g/dL (33.0-35.0); MEAN CORPUSCULAR VOLUME 91.7 fL (80.0-100.0); MEAN PLATELET VOLUME 10.8 fL (7.4-11.0); MONOCYTES # (AUTO) 0.8 x10^3/uL (0.3-0.8); MONOCYTES % (AUTO) 2.1 % (0.0-13.0); NEUTROPHILS # (AUTO) 16.4 x10^3/uL (2.2-4.8); NEUTROPHILS % (AUTO) 40.9 % (42.0-75.0); PLATELET COUNT 170 X10^3/uL (150.0-450.0); RED CELL DISTRIBUTION WIDTH 13.3 % (11.6-16.5)
[2020-07-07 06:38] LABS: BAND NEUTROPHILS % 2 % (0-10); WHITE BLOOD COUNT 40.1 X10^3/uL (3.6-10.0)
[2020-07-07 06:39] LABS: METAMYELOCYTES % 3; SMUDGE CELLS SUSPECT
[2020-07-07 06:50] LABS: ALBUMIN 1.8 g/dL (3.4-5.0); CALCIUM 7.9 mg/dL (8.5-10.1); CARBON DIOXIDE 26.2 mmol/L (21-32); COR CA(FOR HYPOALB) 9.7 mg/dL (8.5-10.1); CREATININE 2.32 mg/dL (0.55-1.02); TOTAL PROTEIN 4.5 g/dL (6.4-8.2)
[2020-07-07] MEDS: XOPENEX 1.25 MG/3 ML NEBULE NEB SCH ×5 (07:20→20:40)
[2020-07-07] MEDS: PULMICORT NEB TX 0.5 MG NEB SCH ×3 (07:20→20:40)
[2020-07-07] MEDS: D5W 1000 ML IV 1,000 ML IV SCH ×3 (08:09→17:02)
[2020-07-07] MEDS: THIAMINE HCL INJ IVP SCH ×2 (08:09→20:18)
[2020-07-07] MEDS: PROTONIX INJ 40 MG VIAL IVP SCH ×2 (08:10→20:20)
[2020-07-07 08:11] LABS: PLATELET MORPHOLOGY COMMENT NORMAL (NORMAL)
[2020-07-07] MEDS: LACRI-LUBE S.O.P. AFFEYE SCH ×2 (08:12→20:35)
[2020-07-07] MEDS: ELIQUIS PO SCH ×2 (09:14→20:34)
[2020-07-07] MEDS: ZINC SULFATE PO SCH ×2 (09:14→20:26)
[2020-07-07] MEDS: ZITHROMAX TAB 250 MG PO SCH (09:14)
[2020-07-07] MEDS: LOPRESSOR TAB 25 MG PO SCH ×2 (09:14→20:31)
[2020-07-07] MEDS: VITAMIN D3 125 mcg (5,000 UNITS) PO SCH (09:14)
[2020-07-07] MEDS: VSL#3 PO SCH (09:15)
[2020-07-07] MEDS: VITAMIN A PO SCH (09:15)
[2020-07-07] MEDS: ROBITUSSIN DM PO SCH ×4 (09:15→20:34)
[2020-07-07] MEDS ORDERED: CATAPRES TAB 0.1 MG PO PRN (15:46)
[2020-07-07] MEDS ORDERED: APRESOLINE INJ 20 MG VIAL IVP PRN (15:51)
[2020-07-07] MEDS: XANAX PO PRN (20:23)
[2020-07-07] MEDS: LIPITOR TAB 40 MG PO SCH (20:27)
[2020-07-08] MEDS: ASCORBIC ACID INJ MULTI-DOSE VIAL 1,500 MG in NS 50 ML IV 50 ML IV SCH ×5 (02:21→21:35)
[2020-07-08 04:01] LABS: ABG ALLEN TEST POS; ABG BASE EXCESS 5.8 mmol/L (-2.0-2.0); ABG HCO3 29.8 mmol/L (22-26)
[2020-07-08] MEDS: CARDIZEM TAB 30 MG PLAIN PO SCH ×3 (05:57→22:15)
[2020-07-08] MEDS: D5W 1000 ML IV 1,000 ML IV SCH ×3 (05:57→17:10)
[2020-07-08] MEDS: SOLU-Medrol 125 MG VIAL IVP SCH ×3 (05:57→22:15)
--- NOTE | 2020-07-08 06:10 | RAD ---
HISTORYFollow-up COVID-19STUDYChest AP [id number]/12/2021FINDINGSPatient is rotated to the left but somewhat less rotated than on the prior examination. There is an endotracheal tube in good position. There is a nasogastric tube co ursing below the left hemidiaphragm. Its tip is not visible. There is a right IJ line in good positio n. Bilateral interstitial and ground-glass infiltrates right greater than left are unchanged. No pleu ral effusions are identified. Bony thorax is unremarkable.IMPRESSION :No change bilateral interstitia l and ground-glass infiltrates right greater than leftElectronically signed by: YAZAN MARIE (Jun 06:08:35)
[2020-07-08 06:16] LABS: BASOPHILS % (AUTO) 0.1 % (0.2-1.0); HEMOGLOBIN 8.8 g/dL (12.0-16.0)
[2020-07-08 06:21] LABS: HEMATOCRIT 26.9 % (36.0-47.0); LYMPHOCYTES # (AUTO) 24.6 X10^3/uL (1.3-2.9); LYMPHOCYTES % (AUTO) 54.3 % (21.0-51.0); MEAN CORPUSCULAR HEMOGLOBIN 30.2 pg (27.0-34.0); MEAN CORPUSCULAR HGB CONC 32.9 g/dL (33.0-35.0); MEAN CORPUSCULAR VOLUME 91.9 fL (80.0-100.0); MEAN PLATELET VOLUME 10.4 fL (7.4-11.0); MONOCYTES # (AUTO) 0.9 x10^3/uL (0.3-0.8); NEUTROPHILS # (AUTO) 19.8 x10^3/uL (2.2-4.8); NEUTROPHILS % (AUTO) 43.6 % (42.0-75.0); PLATELET COUNT 185 X10^3/uL (150.0-450.0); RED BLOOD COUNT 2.92 X10^6/uL (3.5-5.4); RED CELL DISTRIBUTION WIDTH 13.5 % (11.6-16.5)
[2020-07-08 06:28] LABS: ALBUMIN 1.9 g/dL (3.4-5.0); CALCIUM 7.9 mg/dL (8.5-10.1); CARBON DIOXIDE 25.3 mmol/L (21-32); COR CA(FOR HYPOALB) 9.6 mg/dL (8.5-10.1); CREATININE 2.45 mg/dL (0.55-1.02); TOTAL PROTEIN 4.7 g/dL (6.4-8.2)
[2020-07-08 07:12] LABS: WHITE BLOOD COUNT 45.4 X10^3/uL (3.6-10.0)
[2020-07-08 07:13] LABS: BAND NEUTROPHILS % 1 % (0-10); METAMYELOCYTES % 1; PLATELET MORPHOLOGY COMMENT NORMAL (NORMAL); SMUDGE CELLS SUSPECT
[2020-07-08] MEDS: LACRI-LUBE S.O.P. AFFEYE SCH ×2 (11:12→21:20)
[2020-07-08] MEDS: LOPRESSOR TAB 25 MG PO SCH ×2 (11:12→21:20)
[2020-07-08] MEDS: PROTONIX INJ 40 MG VIAL IVP SCH ×2 (11:12→21:20)
[2020-07-08] MEDS: ELIQUIS PO SCH ×2 (11:12→21:20)
[2020-07-08] MEDS: VITAMIN A PO SCH (11:13)
[2020-07-08] MEDS: THIAMINE HCL INJ IVP SCH ×2 (11:13→21:20)
[2020-07-08] MEDS: VITAMIN D3 125 mcg (5,000 UNITS) PO SCH (11:13)
[2020-07-08] MEDS: ROBITUSSIN DM PO SCH ×4 (11:13→21:20)
[2020-07-08] MEDS: ZINC SULFATE PO SCH ×2 (11:14→21:20)
[2020-07-08] MEDS: ZITHROMAX TAB 250 MG PO SCH (11:14)
[2020-07-08] MEDS: VSL#3 PO SCH (11:14)
--- NOTE | 2020-07-08 13:42 | CT ---
HISTORYDECREASED RESPONSIVENESS- COVID, hypertensionSTUDYCT brain without IV contrastCOMPARISONNoneTECHNIQUEMultiple axial images of the brain were obtained without IV contrast. Dose reduction techniques including Automated Exposure Control (AEC) and adjustment of mA and kV were utilized.FINDINGSParanasal sinuses appear clear but there is mild fluid in the right mastoid air cells. Patient has indwelling nasogastric tube. No calvarial fracture is seen.Mild atherosclerotic calcifications are seen in the distal ICAs. No acute intracranial hemorrhage or mass effect is seen. Prominent diffuse volume loss is seen in the brain with compensatory enlargement of the ventricular system.Recent to subacute CVA are suspected in the right parietal and left frontoparietal convexities. No significant mass effect is seen but no definite volume loss is seen. Similar recent or subacute CVA is suspected in the right cerebellar hemispheres superiorly. Mass lesions would be a less likely cause for the appearance, as the edema appears to be cytotoxic rather than vasogenic. 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 Chronic small vessel ischemic changes are suspected in the thalami, basal ganglia, and periventricular white matter. A recent lacunar infarct cannot be excluded in these regions. No suggestion of dural venous sinus thrombosis.IMPRESSIONRecent to subacute CVA are suspected in the right cerebellar hemisphere, right parietal lobe, and left frontoparietal convexity. Further evaluation with contrast enhanced MRI is recommended. Mass lesions causing these changes would be less likely, as there appears to be cytotoxic edema rather than vasogenic edema.Other moderate chronic ischemic changes are seen as described above.Electronically signed by: Ulises Bear (Jul 08, 2020 13:41:12)
[2020-07-08] MEDS: PULMICORT NEB TX 0.5 MG NEB SCH ×2 (14:52→20:30)
[2020-07-08] MEDS: XOPENEX 1.25 MG/3 ML NEBULE NEB SCH ×3 (14:52→20:30)
[2020-07-08] MEDS ORDERED: D5W 1000 ML IV 1,000 ML IV ONE (16:30)
[2020-07-08] MEDS: LIPITOR TAB 40 MG PO SCH (21:20)
[2020-07-09] MEDS: ASCORBIC ACID INJ MULTI-DOSE VIAL 1,500 MG in NS 50 ML IV 50 ML IV SCH ×4 (03:10→21:21)
[2020-07-09 04:45] LABS: ABG ALLEN TEST POS; ABG BASE EXCESS 3.5 mmol/L (-2.0-2.0); ABG HCO3 26.7 mmol/L (22-26)
[2020-07-09] MEDS: CARDIZEM TAB 30 MG PLAIN PO SCH ×3 (06:00→21:22)
[2020-07-09] MEDS: SOLU-Medrol 125 MG VIAL IVP SCH ×3 (06:00→21:22)
[2020-07-09 06:14] LABS: HEMOGLOBIN 8.6 g/dL (12.0-16.0); MONOCYTES % (AUTO) 2.3 % (0.0-13.0)
[2020-07-09 06:22] LABS: BASOPHILS % (AUTO) 0 % (0.2-1.0); HEMATOCRIT 26.5 % (36.0-47.0); LYMPHOCYTES # (AUTO) 23.5 X10^3/uL (1.3-2.9); LYMPHOCYTES % (AUTO) 52.2 % (21.0-51.0); MEAN CORPUSCULAR HGB CONC 32.5 g/dL (33.0-35.0); MEAN CORPUSCULAR VOLUME 92.2 fL (80.0-100.0); MEAN PLATELET VOLUME 10.4 fL (7.4-11.0); NEUTROPHILS # (AUTO) 20.5 x10^3/uL (2.2-4.8); NEUTROPHILS % (AUTO) 45.5 % (42.0-75.0); PLATELET COUNT 202 X10^3/uL (150.0-450.0); RED BLOOD COUNT 2.87 X10^6/uL (3.5-5.4)
[2020-07-09 06:34] LABS: ALBUMIN 1.8 g/dL (3.4-5.0); CALCIUM 7.6 mg/dL (8.5-10.1); COR CA(FOR HYPOALB) 9.4 mg/dL (8.5-10.1); CREATININE 2.85 mg/dL (0.55-1.02); TOTAL PROTEIN 4.7 g/dL (6.4-8.2)
[2020-07-09] MEDS: D5W 1000 ML IV 1,000 ML IV SCH ×2 (07:32→14:30)
--- NOTE | 2020-07-09 07:33 | RAD ---
Chest AP portableIndication: COVID-19 pneumoniaCOMPARISONJanuary 2020FINDINGSETT tip is below the border of the clavicles. Right IJ catheter tip is over the SVC. NG tube is directed toward the stomach. Monitor leads obscure minimal detail. There is cardiomegaly and patchy pulmonary opacities. There is overlying monitoring leads and support tubings obscuring minimal detail. There is no pneumothorax.IMPRESSIONLines and tubes are stable. Patchy pulmonary opacities and prominent heart size, similar to the prior.Electronically signed by: BRAYDEN MATHEWS (Jul 09, 2020 07:31:56)
[2020-07-09 07:34] LABS: SMUDGE CELLS SUSPECT; WHITE BLOOD COUNT 45.1 X10^3/uL (3.6-10.0)
[2020-07-09 07:36] LABS: PLATELET MORPHOLOGY COMMENT NORMAL (NORMAL)
[2020-07-09] MEDS: PROTONIX INJ 40 MG VIAL IVP SCH ×2 (08:14→21:22)
[2020-07-09] MEDS: THIAMINE HCL INJ IVP SCH ×2 (08:16→21:23)
[2020-07-09] MEDS: XOPENEX 1.25 MG/3 ML NEBULE NEB SCH ×2 (08:49→12:35)
[2020-07-09] MEDS: PULMICORT NEB TX 0.5 MG NEB SCH (08:49)
[2020-07-09] MEDS: ELIQUIS PO SCH ×2 (09:35→21:21)
[2020-07-09] MEDS: LACRI-LUBE S.O.P. AFFEYE SCH ×2 (09:35→21:21)
[2020-07-09] MEDS: LOPRESSOR TAB 25 MG PO SCH ×2 (09:45→21:22)
[2020-07-09] MEDS: VITAMIN D3 125 mcg (5,000 UNITS) PO SCH (09:46)
[2020-07-09] MEDS: ROBITUSSIN DM PO SCH ×4 (09:46→21:22)
[2020-07-09] MEDS: VITAMIN A PO SCH (09:46)
[2020-07-09] MEDS: ZINC SULFATE PO SCH ×2 (09:47→21:23)
[2020-07-09] MEDS: VSL#3 PO SCH (09:47)
[2020-07-09] MEDS: ZITHROMAX TAB 250 MG PO SCH (09:48)
[2020-07-09] MEDS ORDERED: ISOPTO ATROPINE ONE (18:04)
[2020-07-09] MEDS ORDERED: ISOPTO ATROPINE SL PRN (18:15)
[2020-07-09] MEDS ORDERED: MORPHINE SULFATE INJ 2 MG INJ ONE (18:16)
[2020-07-09] MEDS: MORPHINE SULFATE INJ 2 MG INJ IVP PRN (18:29)
[2020-07-09] MEDS: LIPITOR TAB 40 MG PO SCH (21:21)
[2020-07-10 00:22] VITALS: BP 178/85
[2020-07-10] MEDS: ASCORBIC ACID INJ MULTI-DOSE VIAL 1,500 MG in NS 50 ML IV 50 ML IV SCH (03:17)
[2020-07-10] MEDS: D5W 1000 ML IV 1,000 ML IV SCH (03:18)
[2020-07-10] MEDS: MORPHINE SULFATE INJ 2 MG INJ IVP PRN (03:18)
[2020-07-10] MEDS: CARDIZEM TAB 30 MG PLAIN PO SCH (04:59)
[2020-07-10] MEDS: SOLU-Medrol 125 MG VIAL IVP SCH (04:59)
== END 2020-07-10 10:00 | disposition expired | DRG 177 ==
LOC: ER 12:57 → OBS 16:42 → MED/SURG 06-18 15:12 → ICU 06-26 14:26 → MED/SURG 07-09 17:50
PROVIDERS: ADMIT Internal Medicine; ATTEND Internal Medicine
DX: C91.10 Chronic lymphocytic leukemia of B-cell type not having achieved remission; A08.4 Viral intestinal infection, unspecified; I46.9 Cardiac arrest, cause unspecified; E87.6 Hypokalemia; I63.9 Cerebral infarction, unspecified; D64.9 Anemia, unspecified; I25.10 Atherosclerotic heart disease of native coronary artery without angina pectoris; R79.89 Other specified abnormal findings of blood chemistry; J96.01 Acute respiratory failure with hypoxia; J12.89 Other viral pneumonia; R53.1 Weakness; I48.91 Unspecified atrial fibrillation; I10 Essential (primary) hypertension; U07.1 COVID-19; Z51.5 Encounter for palliative care; J90 Pleural effusion, not elsewhere classified; Z66 Do not resuscitate; N17.8 Other acute kidney failure; J44.9 Chronic obstructive pulmonary disease, unspecified; R94.31 Abnormal electrocardiogram [ECG] [EKG]; R79.82 Elevated C-reactive protein (CRP)